=== PATIENT | female | born 1960 | race Caucasian/White ===

== ENCOUNTER 2023-12-06 15:30 | Outpatient (OUT) | payer OTHER, SELFPAY ==
--- NOTE | 2023-12-06 16:00 | XR_ITS ---
The [address] [address] Patient Name: APRYL VALADEZ MRN: [id number] date: 1960 Sex: F Assigned Patient Location: [facility] Current Patient Location: Accession/Order Number: [id number] Exam Date: 12/06/2023 15:36 Report Date: 12/10/2023 07:40 At the request of: MARY ANN MG Procedure: XR DEXA axial skeleton EXAMINATION: XR DEXA axial skeleton, 12/06/2023 3:36 PM EDT HISTORY: Osteoporosis COMPARISON: 2018 TECHNIQUE: Dual-energy X-ray absorptiometry (DEXA) bone density study performed for the axial skeleton. FINDINGS: Bone density AP spine L1-L4 measures 1.016 g/sq cm. T score -1.4. Osteopenia. Lowest bone mineral density right femoral neck at 0.74 g/sq cm for T score -1.8. Osteopenia XR/XR DEXA axial skeleton IMPRESSION: Osteopenia. Moderate fracture risk Pharmacologic treatment recommendations * No uniform recommendation applies to all patients. Management plans must be individualized. * Consider initiating pharmacologic treatment in postmenopausal women and men >= 50 years of age who have the following: Primary fracture prevention: * T-score <= - 2.5 at the femoral neck, total hip, lumbar spine, 33% radius (some uncertainty with existing data) by DXA. * Low bone mass (osteopenia: T-score between - 1.0 and - 2.5) at the femoral neck or total hip by DXA with a 10-year hip fracture risk >= 3% or a 10-year major osteoporosis-related fracture risk >= 20% (i.e., clinical vertebral, hip, forearm, or proximal humerus) based on the US-adapted FRAXregistered model. Secondary fracture prevention: * Fracture of the hip or vertebra regardless of BMD [4, 5]. * Fracture of proximal humerus, pelvis, or distal forearm in persons with low bone mass (osteopenia: T-score between - 1.0 and - 2.5). The decision to treat should be individualized in persons with a fracture of the proximal humerus, pelvis, or distal forearm who do not have osteopenia or low BMD [12, 13]. Pam MS, Nancy SL, Amanda KL, Ann-Marie EM, Melba KG, AJ, Scottie ES. The clinician's guide to prevention and treatment of osteoporosis. Osteoporos Int. 2021;33(10):1098-4078. doi: 10.1007/d55750-150-19486-x. Epub 2021Jun 16. Erratum in: Osteoporos Int. 2021Sep 15;: PMID: [id number]; PMCID: [id number]. Electronically authenticated by: SMITHA STEWART Date: 12/10/2023 07:40
--- NOTE | 2023-12-06 16:00 | MM_ITS ---
Patient Name: APRYL VALADEZ MR#: [id number] : 1960 Exam Date: 12/06/2023 Ordering Doctor: DR oClleen Lancaster M.D. RADIOLOGY REPORT PROCEDURE: MM TOMOSYNTHESIS SCREENING BI COMPARISON: MG MAMM SCREEN 3D AMARA CAD, 03/07/2022. MG MAMM SCREEN 3D AMARA CAD, 11/09/2020. INDICATIONS: Screening Calculator Name NCI Breast Cancer Risk Assessment Tool 5 Year Breast Cancer Risk 1.60% Lifetime Breast Cancer Risk 7.90% Personal Breast Cancer No Personal Ovarian Cancer No Treatments None Family Cancers None LOCATION: The [facility] BREAST COMPOSITION: There are scattered areas of fibroglandular density. FINDINGS: DIAGNOSTIC CATEGORY 2--BENIGN FINDING. NO CHANGE FROM COMPARISON. Bilateral axillary calcifications, grossly stable RIGHT BREAST: No significant suspicious finding. LEFT BREAST: No significant suspicious finding. RECOMMENDATIONS: ROUTINE MAMMOGRAM AND CLINICAL EVALUATION IN 12 MONTHS. PLEASE NOTE: A NORMAL MAMMOGRAM DOES NOT EXCLUDE THE POSSIBILITY OF BREAST CANCER. A CLINICALLY SUSPICIOUS PALPABLE LUMP SHOULD BE BIOPSIED. Dictated by: Kaushal tSroud MD on 12/06/2023 at 16:25 Approved by: Kaushal Stroud MD on 12/06/2023 at 16:27
== END 2023-12-06 15:31 | disposition home or self-care (01) ==
LOC: RAD 15:30
PROVIDERS: PCP Family Medicine; Visit Provider Family Medicine
DX: Z12.31 Encounter for screening mammogram for malignant neoplasm of breast (principal); M81.0 Age-related osteoporosis without current pathological fracture; M85.80 Other specified disorders of bone density and structure, unspecified site
CPT/HCPCS: 77063; 77067; 77080

== ENCOUNTER 2024-01-31 15:19 | Outpatient (OUT) | payer OTHER, SELFPAY | END 2024-01-31 15:20 | disposition home or self-care (01) | LOC: PST 15:19 | PROVIDERS: PCP Family Medicine; Visit Provider Surgery | DX: Z01.818 Encounter for other preprocedural examination (principal); Z12.11 Encounter for screening for malignant neoplasm of colon ==

== ENCOUNTER 2024-02-06 06:23 | Day surgery (SDC) | payer OTHER, SELFPAY ==
--- NOTE | 2024-02-06 | OP_ITS ---
OPERATION DATE: 02/06/2024 PREOPERATIVE DIAGNOSIS: Colorectal screening. POSTOPERATIVE DIAGNOSIS: Redundant colon with spasm, as well as sigmoid diverticulosis, moderate. PROCEDURE: Colonoscopy to cecum. SURGEON: Khalif Winters M.D. ANESTHESIA: Monitored anesthesia care. ESTIMATED BLOOD LOSS: Zero. INDICATIONS AND CONSENT: Patient is a 63-year-old female, presents for colorectal screening. Indications, risks, benefits, alternatives of proceeding with colonoscopy were explained extensively to the patient, including the risks of bleeding, colon perforation or anesthetic complications. All of her questions were answered. Informed consent was obtained. PROCEDURE: Patient brought to the operating room, placed in the left lateral decubitus position. Monitored anesthesia care was provided. Rectal exam was performed which showed no masses or blood. The scope was inserted into the anal canal. Under direct visualization, it was advanced. With the aid of abdominal compression, it was advanced to the cecum where cecal markings were clearly identified. There was noted to be a redundant colon with spasm. Upon withdrawal of the scope, mucosal surfaces were carefully examined. There was noted to be a good prep with no mass lesions or polyps. No inflammatory changes or ulcerations. There was moderate sigmoid diverticulosis without inflammatory changes or scarring. The scope was retroflexed in the anal canal. There were some prominent rectal veins, no significant hemorrhoidal disease. The scope was then withdrawn. Patient tolerated procedure well, was sent to recovery room in good condition. Follow up colonoscopy should be in 10 years for screening. CC: Colleen Lancaster M.D. NICOLETTE
[2024-02-06 06:30] VITALS: BP 126/73; PULSE 87; TEMP 36.3; O2SAT 95; BMI 31.3
[2024-02-06] MEDS: 0.9 % SODIUM CHLORIDE 500 ML 50 ML IV (07:06)
[2024-02-06 07:43] VITALS: BP 113/67; PULSE 77; TEMP 36.3; O2SAT 98
[2024-02-06 07:58] VITALS: BP 113/75; PULSE 77; O2SAT 98
[2024-02-06 08:13] VITALS: BP 122/77; PULSE 72; O2SAT 97
== END 2024-02-06 08:18 | disposition home or self-care (01) ==
PROVIDERS: PCP Family Medicine; Visit Provider Surgery
PROC: (CPT 45378; principal; 2024-02-06 07:30)
DX: Z12.11 Encounter for screening for malignant neoplasm of colon (principal); K57.30 Diverticulosis of large intestine without perforation or abscess without bleeding; K63.89 Other specified diseases of intestine; Z79.899 Other long term (current) drug therapy; M81.0 Age-related osteoporosis without current pathological fracture; Z79.83 Long term (current) use of bisphosphonates; E66.09 Other obesity due to excess calories; Z68.31 Body mass index [BMI] 31.0-31.9, adult; Z88.0 Allergy status to penicillin; Z88.2 Allergy status to sulfonamides; Z88.5 Allergy status to narcotic agent
CPT/HCPCS: 45378; J2704

== ENCOUNTER 2024-07-11 11:47 | Outpatient (OUT) | payer OTHER, SELFPAY ==
--- OUTSIDE RECORDS SUMMARY | 2024-03-04 17:11 | XMS_ITS ---
Author Name Auto Generated Organization [facility] Care Team Providers Care Category Planner Name Role Phone Khalif ROMAN Attending Unavailable Khalif ROMAN Attending Unavailable GERARD SEALS Attending Unavailable GERARD SEALS Referring Unavailable PROBLEMS No Problem Records Found PROCEDURES No Procedure Records Found RESULTS REMINDERS Observed: 02/07/2024 1:07 PM Status: F Source: [facility] Reminders From: Yeny Greene LPN To: N - Clinical; Sent: 02/07/2024 13:07:28 EST Show up: 01/06/2034 07:00:00 EST Subject: colonoscopy recall Due Date/Time: 02/05/2034 07:00:00 EST Reminder/Recall Patient due for screening colonoscopy 02/05/2034. AMBULATORY VISIT SUMMARY Observed: 12/25 3:58 PM Status: F Source: [facility] Ambulatory Visit Summary APRYL VALADEZ :1960 Visit Date:12/26/2023 Ambulatory Visit Instructions Your Diagnosis Screening for malignant neoplasm of colon Your Care Team Attending Physician - JESSIE NAYLOR, Khalif Pace Primary Care Physician - MARY ANN LANCASTER MD This Is Your Medications List Contact prescribing physician if questions or concerns alendronate (Fosamax 70 mg Tab) fluticasone (fluticasone CFC free 110 mcg/inh Inh Aer w/adapter) montelukast (Singulair 10 mg Tab) sumatriptan (Imitrex 25 mg Tab) Procedures Performed Colonoscopy, Laparoscopy, Lysis of adhesions, Tympanostomy. Discharge Vitals Heart Rate (Peripheral) 76 Respiratory Rate 16 Blood Pressure 124/84 Height 158.7 cm Height 62 in Weight 79.4 kg Weight 174.68 lb BMI 31.53 Medications What How Much When Instructions Unchanged alendronate (Fosamax 70 mg Tab) 1 Tablets By Mouth Every week Contact prescribing physician if questions or concerns Unchanged fluticasone (fluticasone CFC free 110 mcg/ inh Inh Aer w/ adapter) 2 Puffs Inhalation 2 times a day Contact prescribing physician if questions or concerns Unchanged montelukast (Singulair 10 mg Tab) 1 Tablets By Mouth Every day Contact prescribing physician if questions or concerns Unchanged sumatriptan (Imitrex 25 mg Tab) 1 Tablets By Mouth Once as needed for Migraine headache Contact prescribing physician if questions or concerns Allergies Darvocet-N 50 (Hives) penicillin (Hives) sulfa drugs (Hives) Problems Ongoing - Any problem that you are currently receiving treatment for. Allergic rhinitis BMI 31.0-31.9,adult Endometriosis Migraine with aura Mild intermittent asthma Obesity due to excess calories Osteoporosis Screening for malignant neoplasm of colon Patient Survey You may receive a survey via text or e-mail asking about your office visit. Please share your experience with us by completing your survey. We appreciate your feedback and thank you for choosing us for your care. GENERAL SURGERY OFFICE/CLINI C NOTE Observed: 12/26/2023 3:41 PM Status: F Source: [facility] General Surgery Office/Clini c Note Chief Complaint consultation for screening colonoscopy HPI Staff 63 year old female presents on consultation from Dr. Lancaster for screening colonoscopy. Denies abdominal or rectal pain. No rectal bleeding or change in bowel habits. Denies nausea or vomiting. No unexplained weight loss. Patient had previous colonoscopy completed approximately 30 years ago. No known family history of colon cancer. History of Present Illness 63 yo female with h/o migraines, asthma, osteoporosis, referred for colorectal screening; denies change in bms or blood in stools, no abd complaints; abd operations significant for abd laparoscopies with lysis of adhesions, last colonoscopy 30 years ago; no asa or NSAID use; no tobacco use; no fmhx of GI malignancy or IBD. Review of Systems PHQ Score Initial Depression Screen Score: 0 SCORE ROS - Provider Constitutional: no fever, no sweats, no weight loss. Eyes: no glasses, no blurred vision, no visual loss. ENMT: no dentures, no hoarseness, no swallowing difficulties, no hearing loss, no ear infection(s), no nose bleeds. Cardiovascular: normal blood pressure, no chest pain, regular heartbeat, no heart murmur. Respiratory: no shortness of breath, no cough, no asthma, no wheezing. Gastrointestinal: no nausea, no vomiting, no diarrhea, no constipation, no blood in stool, no change in bowel habits, no abdominal pain, no hepatitis. Genitourinary: no kidney stones, no urine infection, no dysuria. Musculoskeletal: no pain, no weakness. Skin: no changing moles, no rash, no skin lumps. Neurologic: no seizures, no epilepsy, no headache. Psychiatric: no emotional or psychiatric problem. Heme/Lymph: no bleeding problems, no anemia, no blood clots, no transfusions. Allergy/Immunologic: no swollen lymph nodes/glands, no IV drug abuse. Other: Additional ROS info: Except as noted in the above Review of Systems and in the History of Present Illness, all other systems have been reviewed and are negative or noncontributory. Physical Exam Vitals & Measurements HR: 76(Peripheral) RR: 16 BP: 124/84 HT: 62 in HT: 158.7 cm WT: 79.4 kg WT: 174.68 lb BMI: 31.53 HEENT: normal conjunctiva, sclera clear, no scleral icterus, EOM intact, PERRLA, oral mucosa moist without lesions. Neck: trachea midline, no mass, symmetric, no thyromegaly or nodules, no adenopathy Respiratory: lungs CTA, respirations non labored. Cardiovascular: regular rate and rhythm, no murmur, no pedal edema or varicosities. Gastrointestinal: obese, soft, non distended, no tenderness, no masses, no palpable hernias, diastasis recti no, no hepatosplenomegaly; normal bs Lymphatic: no cervical adenopathy, no supraclavicular adenopathy. Musculoskeletal: normal gait, digits and nails without infection, nodes, cyanosis, clubbing. Skin: no rashes, no lesions, no ulcers, no subcutaneous nodules, induration. Psychiatric/Neuro: oriented to time, place, person, judgement normal, affect appropriate for age, insight intact, no focal deficits. Tests: , review of old records completed , Discussed surgical options, risks, and possible complications with patient. Assessment/Plan 1. Screening for malignant neoplasm of colon (Z12.11: Encounter for screening for malignant neoplasm of colon) plan colonoscopy under anesthesia, informed consent obtained. Follow-up No qualifying data available Problem List/Past Medical History Ongoing Allergic rhinitis BMI 31.0-31.9,adult Endometriosis Migraine with aura Mild intermittent asthma Obesity due to excess calories Osteoporosis Screening for malignant neoplasm of colon Historical No qualifying data Procedure/Surgical History Colonoscopy, Laparoscopy, Lysis of adhesions, Tympanostomy. Medications fluticasone CFC free 110 mcg/inh Inh Aer w/adapter, 2 puff(s), Inhalation, BID Fosamax 70 mg Tab, 70 mg= 1 tab(s), Oral, qWeek Imitrex 25 mg Tab, 25 mg= 1 tab(s), Oral, Once, PRN Singulair 10 mg Tab, 10 mg= 1 tab(s), Oral, Daily Allergies Darvocet-N 50 (Hives) penicillin (Hives) sulfa drugs (Hives) Social History Alcohol - Denies Alcohol Use, 12/26/2023 Substance Abuse - Denies Substance Abuse, 12/26/2023 Tobacco Never (less than 100 in lifetime) Tobacco Use:. Never Smokeless Tobacco Use:., 12/26/2023 Family History Bile duct carcinoma: Negative: Brother. Diabetes mellitus type 2: Mother. Heart disease: Mother and Father. Immunizations Vaccine Date Status Comments SARS-CoV-2 (COVID-19) Ad26 vaccine 07/14/2020 Recorded 2023-12-11: --[employer] POP[employer]ATION/OCCUPATION-- Result Comment: Electronical ly Signed By: JESSIE NAYLOR, Khalif Aguilar\Date and Time Signed: 12/26/23 15:42 EST ALLERGIES DATE TYPE / CODE NAME / CODE REACTION SEVERITY SOURCE [id number]([facility] ED CT) azithromycin [id number] Moderate (Severity Modifier) (Qualifier Value) [facility] [id number]([facility] ED CT) penicillin [id number] Moderate (Severity Modifier) (Qualifier Value) [facility] [id number]([facility] ED CT) propoxyphene [id number] Moderate (Severity Modifier) (Qualifier Value) [facility] ANAYELI580661020([facility] ED CT) sulfa drugs [id number] [facility] /[id number](SN ED CT) Darvocet-N 50 [id number] Moderate (Severity Modifier) (Qualifier Value) [facility] ENCOUNTERS ADMIT/DISCHARGE ACCOUNT NUMBER ADMITTING ENCOUNTER CLASS LOCATION SOURCE 03/04/2024/ 5 [id number] Ambulatory Building:[facility] EPIC 03/04/2024/ 5 [id number] Ambulatory Building:[facility] OD [facility] EPIC 02/06/2024/ 4 [id number] Ambulatory CD:[id number] 7Building:CD :[id number] [facility] 12/26/2023/ 4 [id number] Ambulatory [place] ding: BryanueRoom : Exam 2 [facility] 12/03/2023 [id number] Ambulatory Suad ding:[facility] PAYERS ENCOUNTER GUARANTOR PAYER SUBSCRIBER SOURCE 03/04/2024 APRYL THIBODEAUXLINDAOB: [address]: () (WP) Primary Insurance:[employer] Number: [id number] Date:2022-01-27 APRYL THIBODEAUXSDOB: [id number] [facility] 03/04/2024 APRYL THIBODEAUXSDOB: [place] [address]Tel: (HP) (WP) Primary Insurance:[employer] Number: [id number] Date:2022-01-27 APRYL THIBODEAUXSDOB: [id number] [address] [facility] EPIC 02/06/2024 APRYL THIBODEAUXSDOB: [address]Tel: ~~([phone] 1 (HP) Primary Insurance:[employer] BenefitsPolicy Number: [id number] Date:7337-18-04OW [address] [place] [address]OU: APRYL ANNE [facility] 12/26/2023 APRYLMARYLIN THIBODEAUXSDOB: [facility]Tel: ~~(4 1 (HP) Primary Insurance:[employer] BenefitsPolicy Number: [id number] Date:8806-14-50QW [address] [place] [address]SB: APRYL Nieves [facility] 12/03/2023 APRYL FRANCISOB: [facility] [facility] [address] [address]Tel: (HP) Primary Insurance:[employer] BenefitsPolicy Number: [id number] Date:2015-08-25[address] [address], [place] [address]NI: [facility]
--- NOTE | 2024-07-11 11:57 | XR_ITS ---
The [address] [address] Patient Name: APRYL VALADEZ MRN: [id number] date: 1960 Sex: F Assigned Patient Location: [facility] Current Patient Location: [facility] Accession/Order Number: [id number] Exam Date: 07/11/2024 12:58 Report Date: 07/11/2024 12:59 At the request of: MARY ANN MG MD Procedure: XR shoulder LT min 2V XR shoulder LT min 2V 07/11/2024 12:04 PM SIGNS AND SYMPTOMS: ^Left Shoulder Pain PROTOCOL: Frontal, Grashey, and scapular Y views of the left shoulder COMPARISON: None FINDINGS: Mild hypertrophic changes are noted in the acromioclavicular joint. Mild narrowing of the glenohumeral joint is noted with mild spurring at the inferior margin of the humeral head. There is no fracture or dislocation. Visualized left hemithorax is grossly intact. XR/XR shoulder LT min 2V IMPRESSION: No acute bony injury. Mild degenerative changes are noted as above. Impression dictated by: Kamlesh Clements M.D. 07/11/2024 12:59 PM Dictation Location: [place] [address] Electronically authenticated by: [id number] Y Date: 07/11/2024 12:59
== END 2024-07-11 11:48 | disposition home or self-care (01) ==
LOC: RAD 11:49
PROVIDERS: PCP Family Medicine; Visit Provider Family Medicine
DX: M25.512 Pain in left shoulder (principal)
CPT/HCPCS: 73030

== ENCOUNTER 2024-09-17 15:59 | Outpatient (OUT) | payer OTHER, SELFPAY ==
--- OUTSIDE RECORDS SUMMARY | 2024-09-01 10:30 | XMS_ITS ---
Author Organization [facility] Address [address] [place] [address] Care Team Providers Care Marketing Designer Name Role Phone Colleen Lancaster M.D. Primary Care Provider Unavail able Dennis Oquendo Unavailable [phone] Charu Bravo Unavailable [phone] Allergies Allergen (clinical drug ingredient) Drug/Non Drug Allergy documented on EMR Reaction Allergy Type Onset Date Status DARVOCET (uncoded) Unknown Allergy A ctive PENICILLIN (uncoded) nausea/vomiting Allergy Active SULFA (uncoded) Unknown Allergy Acti ve REASON FOR VISIT BILAT SHOULDER Medications Medication SIG (Take, Route, Frequency, Duration) Notes Start Date End Date Status alendronate Active fluticasone Active Mobic 15 mg 1 tab(s) orally once a day for 90 days 09/01/2024 Active SUMAtriptan Active montelukast Active Social History Tobacco Use: Social History Observation Description Date Details (start date - stop date) Never Smoker NA - NA AUDIT-C (Standard) Question Answer Notes Did you have a drink containing alcohol in the p ast year? No Points 0 Interpretation Negative Tobacco Control (Standard) Question Answer Notes Tobacco use: Nonsmoker Encounters Encounter Location Date Provider Diagnosis [facility] [address] [place] [address] 09/01/2024 Charu Bravo Pain in right should er M25.511 ; Pain in left shoulder M25.512 and Adhesive capsulitis of right shoulder M75.01 Assessments Encounter Date Diagnosis (ICD Code) Assessment Notes Treatment Notes Treatment Clinical Notes Section Notes 09/01/2024 Pain in right shoulder (ICD-10 - M25.511) 09/01/2024 Pain in left shoulder (ICD-10 - M25.512) 09/01/2024 Adhesive capsulitis of right shoulder (ICD-10 - M75.01) 09/01/2024 Other For her right shoulder development of adhesive capsulitis I have discussed the nature of the condition and recommended home exercise program and anti-inflammatory medications. I did prescribe an anti-inflammatory and precautions were reviewed. We discussed consideration for cortisone injection if things do not improve. Will follow-up in 6 weeks to reassess her progress. Plan has been agreed upon by my supervising physician, []MD. Plan Of Treatment Medication Medication Name Sig Start Date Stop Date Notes Mobic 15 mg 1 tab(s) orally once a day for 90 days 025 Treatment Notes Assessment Notes Other For her right shoulder development of adhesive capsulitis I have discussed the nature of the condition and recommended home exercise program and anti-inflammatory medications. I did prescribe an anti-inflammatory and precautions were reviewed. We discussed consideration for cortisone injection if things do not improve. Will follow-up in 6 weeks to reassess her progress. Plan has been agreed upon by my supervising physician, []MD. Pending Test Test Name Order Date SCC- SHOULDER 3 VIEW RIGHT [id number] Next Appt Details Follow Up: 6 Weeks, Reason: Provider Name:Dennis Son and, 10/13/2024 01:15:00 PM, [address] [facility], [address], [address], Progress Notes * APRYL VALADEZ MDOB:[birth year] (63 yo F)Acc No.[id number]:09/01/2024 Patient: Terra AGUILAR APRYL Nieves Provider: Morgan Bravo CNP :1960 A ge:63 Y S ex:Female Date:09/01/2024 Address:[address] [place], [place] [id number] Pcp:Colleen Lancaster M.D. Subjective: * Chief Complaints: * 1 . BILAT SHOULDER. * HPI: G eneral Info per Patient Report: Patient follows up today for recheck of her shoulders. Her right shoulder is becoming a little bit more painful than the left. The left is starting to move a little bit better but is noticed some limitation with her right shoulder reaching behind her back. She is just been doing home exercises. * Medical History: A sthma, Respiratory problems:. * Family History: N o Family History documented.. * Social History: A ALLEN-C (Standard) D id you have a drink containing alcohol in the past year? N o,?Points 0 , I nterpretation N egative. T obacco Control (Standard) T obacco use: N onsmoker. * Medications: T aking alendronate , Taking fluticasone , Taking SUMAtriptan , Taking montelukast * Allergies: P ENICILLIN: nausea/vomiting, SULFA, DARVOCET. Objective: * Vitals: * Examination: G eneral examination: T he patient is a age-appropriate [], alert and oriented x3 and in no acute distress. Well-dressed and well-groomed. Stands with normal body position and in a calm mood. On examination of the right shoulder she does have full forward and external rotation but limitation to the PSIS. She has good strength with rotator cuff resistance. Positive Patton and Neer maneuver. Intact sensation light touch with palpable pulses. On examination of the left shoulder she has good shoulder range of motion. Good strength with rotator cuff resistance. specific exam: x-ray imaging studies: X-ray 3 views of the right shoulder taken today in clinic and interpreted me were negative for acute fracture, dislocation or subluxation. specific exam: x-ray imaging studies: Assement:. Assessment: * Assessment: 1. P ain in right shoulder - M25.511 (Primary) 2 . P ain in left shoulder - M25.512 3 . A dhesive capsulitis of right shoulder - M75.01 Plan: * Treatment: 2. O thers Notes: For her right shoulder development of adhesive capsulitis I have discussed the nature of the condition and recommended home exercise program and anti-inflammatory medications. I did prescribe an anti-inflammatory and precautions were reviewed. We discussed consideration for cortisone injection if things do not improve. Will follow-up in 6 weeks to reassess her progress. Plan has been agreed upon by my supervising physician, []MD. * Procedure Codes: 7 3030 X-ray Shoulder, 2 or more view * Follow Up: 6 Weeks Forms: * Images: * Electronic signature of Charu Bravo CNP on 09/17/2024 at 04:01 PM EDT Sign off status: Pending * Provider: Morgan Bravo CNP Date: 09/01/2024 Generated for Barry garcia/Jordi/Rola on: 09/17/2024 04:01 PM EDT History and Physical Notes * HPI (History of Present Illness) Category Sub-Category Detail Notes Category Not es General Info per Patient Report Patient follows up constanza barrazaay for recheck of her shoulders. Her right shoulder is becoming a little bit more painful than the left. The left is starting to move a little bit better but is noticed some limitation with her right shoulder reaching behind her back. She is just been doing home exercises. Examination Category Sub-Category Detail Notes Category Not es General examination The patient is a age-appropriate [], alert and oriented x3 and in no acute distress. Well-dressed and well-groomed. Stands with normal body position and in a calm mood. On examination of the right shoulder she does have full forward and external rotation but limitation to the PSIS. She has good strength with rotator cuff resistance. Positive Patton and Neer maneuver. Intact sensation light touch with palpable pulses. On examination of the left shoulder she has good shoulder range of motion. Good strength with rotator cuff resistance. specific exam: x-ray imaging studies: X-ray 3 views of the right shoulder taken today in clinic and interpreted me were negative for acute fracture, dislocation or subluxation. specific exam: x-ray imaging studies: Assement:
--- OUTSIDE RECORDS SUMMARY | 2024-09-08 03:40 | XMS_ITS ---
Author Organization [facility] Address [address] [place] [address] Care Team Providers Care Transmission System Operator Name Role Phone Tonny Ruiz, Colleen Primary Care Provider Unavail Dennis Augustin Unavailable [phone] REASON FOR VISIT LEFT SHOULDER BURSITIS Encounters Encounter Location Date Provider Diagnosis [facility] [facility] [address] [facility] [place] [address] [place] [address] 09/08/2024 Dennis Oquendo Plan Of Treatment Next Appt Details Provider Name:Dennis Son and, 10/13/2024 01:15:00 PM, [address] [facility] , [address], [address], Progress Notes * APRYL VALADEZ MDOB:[birth year] (63 yo F)Acc No.[id number]:09/08/2024 Patient: APRYL SAXENA Provider: Jason Oquendo MD :1960 A ge:63 Y S ex:Female Date:09/08/2024 Address:[address] [place], [place] [phone] Pcp:Colleen Lancaster M.D. Subjective: * Chief Complaints: * 1 . LEFT SHOULDER BURSITIS. * Medical History: Objective: * Vitals: Assessment: Plan: * Treatment: Forms: * Images: * Electronic signature of Sukhdev Oquendo MD on 09/17/2024 at 04:01 PM EDT Sign off status: Pending * Provider: Jason Oquendo MD Date: 09/08/2024 Generated for Barry garcia/Jordi/eTransmitting on: 09/17/2024 04:01 PM EDT
--- NOTE | 2024-09-17 16:00 | US_ITS ---
The [address] [address] Patient Name: APRYL VALADEZ MRN: [id number] date: 1960 Sex: F Assigned Patient Location: US Current Patient Location: US Accession/Order Number: [id number] Exam Date: 09/17/2024 17:47 Report Date: 09/17/2024 17:50 At the request of: MARY ANN MG MD Procedure: US chest Soft tissue ultrasound INDICATION: Subcutaneous mass of back, right-sided back lump COMPARISON: None FINDINGS: At the site of clinical concern, there is a subcutaneous ovoid hypoechoic slightly heterogeneous structure identified this appears relatively isoechoic to adjacent subcutaneous fat. This measures 3.0 x 1.0 x 2.7 cm in size. US/US chest IMPRESSION: Confirmation of a circumscribed mass within the soft tissues at site of concern. Question this could represent represent a lipoma. Consider short-term clinical or ultrasound follow-up. Alternatively, Consider cross-sectional imaging for further characterization purposes. Impression dictated by: Kvng Winston M.D. 09/17/2024 5:50 PM Dictation Location: [place] [address] Electronically authenticated by: [id number] Y Date: 09/17/2024 17:50
--- NOTE | 2024-09-17 16:00 | US_ITS ---
The [address] [address] Patient Name: APRYL VALADEZ MRN: [id number] date: 1960 Sex: F Assigned Patient Location: Current Patient Location: Accession/Order Number: [id number] Exam Date: 09/18/2024 09:38 Report Date: 09/18/2024 09:40 At the request of: MARY ANN MG MD Procedure: US thyroid Thyroid ultrasound Reason for exam: Massive neck. Comparison: none Technique: Grayscale and color Doppler images of the thyroid gland were obtained. Findings: The right lobe measures 4.6 x 0.9 x 1.7 cm. The left lobe measures 4.5 x 1.3 x 1.4 cm. This is measures 2.8 mm. No hyperemia seen on color Doppler imaging. No nodule is seen. In the area of lump involving the left neck, multiple lymph nodes are identified largest measuring 22 x 6 x 6 mm. US/US thyroid Impression: Unremarkable thyroid ultrasound. In the area of lump involving the left neck, multiple lymph nodes are seen likely reactive largest measuring 22 x 6 x 6 mm. Repeat ultrasound after therapy is recommended if necessary. Impression dictated by: Boaz Matias Jr., D.O. 09/18/2024 9:40 AM Dictation Location: [place] [address] Electronically authenticated by: [id number] Y Date: 09/18/2024 09:40
--- OUTSIDE RECORDS SUMMARY | 2024-09-17 16:01 | XMS_ITS | Clinical Summary ---
Author Organization [facility] Address [address] [place] [address] Care Team Providers Care Redrying Machine Operator Name Role Phone Unavailable Primary Care Provider Unavailabl e Allergies Active Allergy Reactions Criticality Noted Date Comments Other 03/04/2024 Other Reaction(s): Unknown Penicillins Medium 03/04/2024 Other Reaction(s): Hives, Unknown Propoxyphene 03/04/2024 Other Reaction(s): Unknown Sulfa Antibiotics 03/04/2024 Other Reaction(s): Hives Medications montelukast (Singulair) 10 MG tablet Take 10 mg by mouth Daily Active SUMAtriptan (Imitrex) 25 MG tablet Take 25 mg by mouth 12/11/2023 Active albuterol HFA 90 mcg/act inhaler 2 puffs every 4 (four) hours if needed Active Active Problems Problem Noted Date Diagnosed Date Asthma Family History Medical History Relation Name Comments Heart disease Father Matt COPD Mother Alicia Diabetes Mother Alicia Relation Name Status Comments Father Matt Mother Alicia Social History Tobacco Use Types Packs/Day Years Used Date Smoking Tobacco: Never Smokeless Tobacco: Never Tobacco Cessation:Counseling Given: Not Answered Alcohol Use Standard Drinks/Week Comments Not Currently 1 (1 standard drink = 0.6 oz pur e alcohol) Comments Unknown Sex and Gender Information Value Date Recorded Sex Assigned at Female 03/01/2024 5:31 PM EST Legal Sex Female 6:35 PM EDT Gender Identity Female 03/01/2024 5:31 PM EST Sexual Orientation Straight 03/01/2024 5: 31 PM EST Last Filed Vital Signs Vital Sign Reading Time Taken Comments Blood Pressure 145/85 04/11/2019 12:00 PM EST Pulse - - Temperature - - Respiratory Rate - - Oxygen Saturation - - Inhaled Oxygen Concentration - - Weight 76.2 kg (168 lb) 03/04/2024 3:19 PM EST Height 160 cm (5' 3 ) 03/04/2024 3:19 PM EST Body Mass Index 29.76 03/04/2024 3:19 PM EST Plan of Treatment Health Maintenance Due Date Last Done Comments CT Colonography 1960 Colonoscopy 1960 FIT 1962 FOBT 1962 Sigmoidoscopy 1962 Pap Smear 11/01/1983 Cervical Cancer Screening 1992 HPV/Cotest 1992 Mammogram 09/25/2017 09/25/2016, 09/24/2015, 08/19 Influenza Vaccine (#1) 2024 Colorectal Cancer Screening 04/08/2025 FIT-DNA 04/08/2025 04/08/2022, 02/14/2018 Insurance [employer]
--- OUTSIDE RECORDS SUMMARY | 2024-09-17 16:01 | XMS_ITS | Patient Health Record ---
Author Organization [facility] Address [address] [place] [address] Care Team Providers Care Checkroom Attendant Name Role Phone Colleen Lancaster M.D. Primary Care Provider Unavail able Dennis Oquendo Unavailable [phone] Charu Bravo Unavailable [phone] Carolyn Medrano Unavailable Allergies Allergen (clinical drug ingredient) Drug/Non Drug Allergy documented on EMR Reaction Allergy Type Onset Date Status DARVOCET (uncoded) Unknown Allergy A ctive PENICILLIN (uncoded) nausea/vomiting Allergy Active SULFA (uncoded) Unknown Allergy Acti ve Reason For Referral No Information Medications Medication SIG (Take, Route, Frequency, Duration) [...] (Standard) Question Answer Notes Tobacco use: Nonsmoker Vital Signs Height 5'3 in 07/28/2024 Weight 170 lbs 07/28/2024 BMI 30.11 07/28/2024 Encounters Encounter Location Date Provider Diagnosis [facility] [facility] [address] [facility] [place] [address] 07/28/2024 Carolyn Medrano Bursitis of left shoulder M75.52 [facility] [address] [place] [address] 09/01/2024 Charu Bravo Pain in right shoulder M25.511 ; Pain in left shoulder M25.512 and Adhesive capsulitis of right shoulder M75.01 Assessments Encounter Date Diagnosis (ICD Code) Assessment Notes Treatment Notes Treatment Clinical Notes Section Notes 07/28/2024 Bursitis of left shoulder (ICD-10 - M75.52) Left shoulder bursitis/rot ator cuff tendinitis Left shoulder DJD Left shoulder bursitis/rot ator cuff tendinitis Left shoulder DJD 09/01/2024 Pain in right shoulder (ICD-10 - M25.511) 09/01/2024 Pain in left shoulder (ICD-10 - M25.512) 09/01/2024 Adhesive capsulitis of right shoulder (ICD-10 - M75.01) 07/28/2024 Other Today I reviewed patient's x-rays with her and on exam she has full ROM and strength but is still feeling some weakness with daily activities. We did discuss getting an MRI versus corticosteroid injection or physical therapy. Patient would like to try some exercises at home first, I will set her up with 1-2 sessions of PT to learn a home exercise program. We will see her back in 6 weeks for reevaluation. Today I reviewed patient's x-rays with her and on exam she has full ROM and strength but is still feeling some weakness with daily activities. We did discuss getting an MRI versus corticosteroid injection or physical therapy. Patient would like to try some exercises at home first, I will set her up with 1-2 sessions of PT to learn a home exercise program. We will see her back in 6 weeks for reevaluation. Left shoulder bursitis/rot ator cuff tendinitis Left shoulder DJD Left shoulder bursitis/rot ator cuff tendinitis Left shoulder DJD 09/01/2024 Other For her right shoulder development [...] been agreed upon by my supervising physician, [MD Enrie. Plan Of Treatment Pending Test Test Name Order Date SCC- SHOULDER 3 VIEW RIGHT [id number] SCC- PT/OT HEP - 1 VISIT 07/28/2024 Next Appt Details Provider Name:Dennis Son and, 10/13/2024 01:15:00 PM, [address] [facility] [address], [place], [address], Insurance Providers Payer Name Payer Address Payer Phone Subscriber Number Group Number Insured Name Patient Relationship to Insured Coverage Start Date Coverage End Date [employer] [address] [address] [place] [address] [id number] APRYL VALADEZ Self - patient is the insured 5 Medical (General) History Medical History History ICD Code Asthma Respiratory problems:
--- OUTSIDE RECORDS SUMMARY | 2024-09-17 16:01 | XMS_ITS | Clinical Summary ---
Author Organization [facility] tem Address [id number] [address] [place] [address] Care Team Providers Care Gravity Meter Observer Name Role Phone Colleen Lancaster MD Primary Care Provider [phone] Family History Medical History Relation Name Comments Breast cancer Neg Hx Social History Tobacco Use Types Packs/Day Years Used Date Smoking Tobacco: Never Assessed Childcare Answer Date Recorded Childcare Unknown 07/31/2018 Employment Answer Date Recorded Employment Unknown 07/31/2018 Purpose - Life Answer Date Recorded Purpose and direction in life Unknown Comments Unknown Sex and Gender Information Value Date Recorded Sex Assigned at Not on file Legal Sex Female 11:28 AM EDT Gender Identity Not on file Sexual Orientation Not on file Plan of Treatment Not on file Medical Devices Not on file Insurance [employer] Care Teams Gravity Meter Observer Relationship Specialty Start Date End Date Colleen Lancaster MD [address] [place] [address] PCP - General 09/25/16
== END 2024-09-17 16:00 | disposition home or self-care (01) ==
LOC: US 15:59
PROVIDERS: PCP Family Medicine; Visit Provider Family Medicine
DX: R22.1 Localized swelling, mass and lump, neck (principal); R22.2 Localized swelling, mass and lump, trunk
CPT/HCPCS: 76536; 76604

== ENCOUNTER 2024-10-16 10:45 | Outpatient (OUT) | payer OTHER, SELFPAY ==
--- OUTSIDE RECORDS SUMMARY | 2024-09-08 03:40 | XMS_ITS ---
Author Organization [facility] Address [address] [place] [address] Care Team Providers Care Mobile Service Rv Technician Name Role Phone Tonny Ruiz, Colleen Primary Care Provider Unavail Dennis Augustin [facility] [phone] REASON FOR VISIT LEFT SHOULDER BURSITIS Encounters Encounter Location Date Provider Diagnosis [facility] [facility] [address] [facility] [place] [address] [place] [address] 09/08/2024 Dennis Oquendo Plan Of Treatment No Information Progress Notes * APRYL VALADEZ MDOB:[birth year] (63 yo F)Acc No.[id number]:09/08/2024 Patient: APRYL SAXENA Provider: Jason Oquendo MD :1960 A ge:63 Y S ex:Female Date:09/08/2024 Address:[address] [place], [place] [phone] Pcp:Colleen Lancaster M.D. Subjective: * Chief Complaints: * 1 . LEFT SHOULDER BURSITIS. * Medical History: Objective: * Vitals: Assessment: Plan: * Treatment: Forms: * Images: * Electronic signature of Sukhdev Oquendo MD on 10/16/2024 at 10:47 AM EDT Sign off status: Pending * Provider: Jason Oquendo MD Date: 09/08/2024 Generated for Barry garcia/Jordi/Mandoitting on: 10/16/2024 10:47 AM EDT
--- OUTSIDE RECORDS SUMMARY | 2024-10-13 09:15 | XMS_ITS ---
Author Organization [facility] Address [address] [place] [address] Care Team Providers Care Closing Specialist Name Role Phone Tonny Ruiz, Colleen Primary Care Provider Unavail Dennis Augustin Unavailable [phone] REASON FOR VISIT RT ADHESIVE CAPSULITIS, LEFT SHOULDER PAIN Encounters Encounter Location Date Provider Diagnosis [facility] [facility] [address] [place] [address] 10/13/2024 Dennis Oquendo Plan Of Treatment No Information Progress Notes * APRYL VALADEZ MDOB:[birth year] (63 yo F)Acc No.[id number]:10/13/2024 Patient: APRYL SAXENA Provider: Jason Oquendo MD :1960 A ge:63 Y S ex:Female Date:10/13/2024 Address:[address] [place], [place] [address] Pcp:Colleen Lancaster M.D. Subjective: * Chief Complaints: * 1 . RT ADHESIVE CAPSULITIS, LEFT SHOULDER PAIN. * Medical History: Objective: * Vitals: Assessment: Plan: * Treatment: Forms: * Images: * Electronic signature of Sukhdev Oquendo MD on 10/16/2024 at 10:47 AM EDT Sign off status: Pending * Provider: Jason Oquendo MD Date: 10/13/2024 Generated for Barry garcia/Jordi/eTransmitting on: 10/16/2024 10:47 AM EDT
--- NOTE | 2024-10-16 | XR_ITS ---
The [place] [id number] Patient Name: APRYL VALADEZ MRN: [id number] date: 1960 Sex: F Assigned Patient Location: [facility] Current Patient Location: Accession/Order Number: [id number] Exam Date: 10/16/2024 10:52 Report Date: 10/17/2024 00:21 At the request of: MAYELIN RAMIREZ DO Procedure: XR shoulder AMARA min 2V XR shoulder AMARA min 2V 10/16/2024 10:58 AM SIGNS AND SYMPTOMS: Bilateral shoulder pain left greater than right. PROTOCOL: Frontal, Grashey, and scapular Y views of the bilateral shoulders COMPARISON: None FINDINGS: Mild hypertrophic changes are noted in the infraclavicular joints. There is more pronounced on the right. The glenohumeral joints are preserved. There is no fracture or dislocation. The visualized right and left hemithorax is grossly intact. XR/XR shoulder AMARA min 2V IMPRESSION: No fracture or dislocation. Mild hypertrophic changes are noted in the acromioclavicular joints, right greater than left. Impression dictated by: Kamlesh Clements M.D. 10/17/2024 12:21 AM Dictation Location: [place] [address] Electronically authenticated by: [id number] Y Date: 10/17/2024 00:21
--- OUTSIDE RECORDS SUMMARY | 2024-10-16 10:47 | XMS_ITS | Clinical Summary ---
Author Organization [facility] tem Address [facility] [place] [id number] [address] [place] [address] Care Team Providers Care Procurement Analyst Name Role Phone Colleen Lancaster MD Primary Care Provider [phone] Family History Medical History Relation Name Comments [...] on file Insurance [employer] Care Teams Procurement Analyst Relationship Specialty Start Date End Date Colleen Lancaster MD [address] [place] [address] PCP - General 09/25/16
--- OUTSIDE RECORDS SUMMARY | 2024-10-16 10:47 | XMS_ITS | Patient Health Record ---
Author Organization [facility] Address [address] [place] [address] Care Team Providers Care Hand Counter Name Role Phone Colleen Lancaster M.D. Primary Care Provider Unavail able Dennis Oquendo Unavailable [phone] Charu Bravo Unavailable [phone] Carolyn Medrano Unavailable Allergies Allergen (clinical drug [...] Location Date Provider Diagnosis [facility] [facility] [address] [facility] [place] [address] [place] [address] 07/28/2024 Carolyn eMdrano Bursitis of left shoulder M75.52 [facility] [address] [facility] [place] [address] 09/01/2024 Charu Bravo Pain in right shoulder M25.511 and Adhesive capsulitis of right shoulder M75.01 Assessments Encounter Date Diagnosis (ICD Code) Assessment Notes Treatment Notes Treatment Clinical Notes Section Notes 07/28/2024 Bursitis of left shoulder (ICD-10 - M75.52) Left shoulder bursitis/rot ator cuff tendinitis Left shoulder DJD Left shoulder bursitis/rot ator cuff tendinitis Left shoulder DJD 09/01/2024 Pain in right shoulder (ICD-10 - M25.511) 09/01/2024 Adhesive capsulitis of right shoulder (ICD-10 [...] agreed upon by my supervising physician, [MD Ernie. Plan Of Treatment Pending Test Test Name Order Date SCC- SHOULDER 3 VIEW RIGHT [id number] SCC- PT/OT HEP - 1 VISIT 07/28/2024 Insurance Providers Payer Name Payer Address Payer Phone Subscriber Number Group Number Insured Name Patient Relationship to Insured Coverage Start Date Coverage End Date [employer] [address] [address] [place] [address] [id number] APRYL VALADEZ Self - patient is the insured 5 Medical (General) History Medical History History ICD Code Asthma Respiratory problems:
--- OUTSIDE RECORDS SUMMARY | 2024-10-16 10:47 | XMS_ITS | Clinical Summary ---
Author Organization [facility] Address [address] [place] [address] Care Team Providers Care Global Mobility Specialist Name Role Phone Unavailable Primary Care Provider [...]
--- OUTSIDE RECORDS SUMMARY | 2024-10-16 10:52 | XMS_ITS | CCD ---
Author Organization [facility] Care Team Providers Care Balance Truing Inspector Name Role Phone SAURAV, DR COLLEEN Duran Admitting Unavailable MG, DR COLLEEN Duran Attending Unavailable MG, DR COLLEEN Duran Primary Care Unavailable MG, DR COLLEEN Duran Consulting Unavailable MG, DR COLLEEN Duran Admitting Unavailable MG, DR COLLEEN Duran Attending Unavailable MG, DR COLLEEN Duran Primary Care Unavailable MALLIKA, DR DODIE Pace Consulting Unavailable MG, DR COLLEEN Duran Consulting Unavailable MG, DR COLLEEN Duran Admitting Unavailable MG, DR COLLEEN Duran Attending Unavailable MG, DR COLLEEN Duran Primary Care Unavailable MG, DR COLLEEN Duran Consulting Unavailable MG, DR COLLEEN Duran Admitting Unavailable MG, DR COLLEEN Duran Attending Unavailable MG, DR COLLEEN Duran Primary Care Unavailable MG, DR COLLEEN Duran Consulting Unavailable SMITHA FOURNIER Consulting Unavailable Colleen Mg Unavailable Jeannine Green Unavailable COLLEEN MG Primary Care Physician Khalif ROMAN Attending Unavailable Khalif ROMAN Attending Unavailable Unavailable Primary Care Provider UnavailGERARD Maher Attending Unavailable GERARD SEALS Referring Unavailable Colleen Mg MD Primary Care Provider Colleen Mg MD Attending Provider [phone] Allergies Allergy Classification Reported Allergen(s) Allergy Type Date of Onset Reaction(s) Facility (6 sources) Penicillins Drug allergy (disorder) 02-14-20 13 Hives [facility] Repository (1 source) Sulfonamides (Antibiotic) Drug allergy (disorder) 02-14-20 13 [facility] Repository (1 source) Darvocet-N 100 Drug allergy (disorder) 02-14-20 13 [facility] Repository (11 sources) Acetaminophen / Propoxyphene Drug Allergy Unknown [facility] Other (16 sources) Penicillin G Drug Allergy 05-14-19 24 [facility] (11 sources) Sulf-10 Drug allergy sensativity [facility] Other (5 sources) Penicillin; Translations: [penicillin] Drug Allergy Weal (disorder) [facility] (3 sources) Propoxyphene Drug Allergy 05-27-19 15 Unknown [facility] Other (3 sources) Substance with penicillin structure and antibacterial mechanism of action (substance) Drug allergy Unknown [facility] Other (2 sources) patient allergy list reviewed by nurse or physicia Propensity to adverse reactions 08-07-19 Comment:Done [facility] Other (5 sources) Substance with sulfonamide structure and antibacterial mechanism of action (substance) Drug allergy 03-04-19 25 Unknown [facility] Other (2 sources) Allergies Reconciled Propensity to adverse reactions Unknown [facility] Other (3 sources) Darvocet A500 *ANALGESICS - OPIOID* Propensity to adverse reactions Unknown [facility] Other (5 sources) Acetaminophen Drug Allergy 05-14-19 24 [facility] (8 sources) Propoxyphene; Translations: [propoxyphene] Drug Allergy 05-14-19 24 [facility] (5 sources) Sulfonamides (Antibiotic) Allergy to substance 05-14-19 24 [facility] (5 sources) Darvocet A500 *ANALGESICS - OP Allergy to substance 05-14-19 24 [facility] Comment on above: Free Text Allergy: D arvocet A500 *ANALGESICS - OPIOID* (1 source) acetaminophen / propoxyphene; Translations: [acetaminophen-pr opoxyphene] Drug Allergy Weal (disorder) [facility] Comment on above: darvocet generic (2 sources) Sulfonamides (Antibiotic); Translations: [sulfa drugs] Drug allergy Weal (disorder) [facility] (1 source) Azithromycin; Translations: [azithromycin] Drug Allergy [facility] Repository (1 source) Darvocet-N 50; Translations: [Darvocet-N 50] Propensity to adverse reactions (disorder) [facility] Repository (2 sources) Penicillins Drug Allergy 03-04-19 [facility] (2 sources) Other Propensity to adverse reactions 03-04-19 [facility] Medications Current Medications Medication Drug Class(es) Dates Sig (Normalized) Sig (Original) acetaminophen 250 mg / aspirin 250 mg / caffeine 65 mg oral tablet (16 sources) Platelet Aggregation Inhibitor, Nonsteroidal Anti-inflammatory Drug, Central Nervous System Stimulant, Methylxanthine Start: 05-14-2023 take 1 tablet by mouth every four to six hours as needed Aspirin-Acetamin ophen-Caffeine (Excedrin Extra Strength) 250-250-65 mg tablet Active 1 TAB PO EVERY 4-6 HOURS as needed May 14, 2023 12:00am Complies with drug therapy take 2 tablets by mouth every si x hours Excedrin Extra Strength 250-250-65 MG 2 tablets as needed Orally every 6 hrs Active [id number] 200 actuat albuterol 0.09 mg/actuat metered dose inhaler (4 sources) beta2-Adrenergic Agonist Start: 12-20-2023 take 1 puff(s) by inhalation every four to six hours as needed for wheezing Albuterol Sulfate 90 mcg/actuation HFA aerosol inhaler Active 2 PUFF INHALATION EVERY 4-6 HOURS as needed for shortness of breath or wheezing 6.7 December 20, 2023 12:00am Complies with drug therapy Start: 12-20-2023 take 1 puff(s) by in halation every four to six hours Albuterol Sulfate Active 2 PUFF INHALATION EVERY 4-6 HOURS 6.7 December 20, 2023 12:00am take 2 puff(s) by in halation every four hours albuterol HFA 90 mcg/act inhaler 2 puffs every 4 (four) hours if needed Active Albuterol Sulfate 90 mcg/actuation HFA aerosol inhaler (1 source) Start: 12-20-2023 take 1 puff(s) by inhalation every four to six hours as needed for wheezing Albuterol Sulfate 90 mcg/actuation HFA aerosol inhaler Active 2 PUFF INHALATION EVERY 4-6 HOURS as needed for shortness of breath or wheezing 6.7 December 20, 2023 12:00am alendronic acid 70 mg oral tablet (17 sources) Bisphosphonate Start: 05-14-2023 120 actuat fluticasone propionate 0.11 mg/actuat metered dose inhaler (20 sources) Corticosteroid Start: 12-11-2023 take 2 puff(s) by inhalation twice daily fluticasone CFC free 110 mcg/inh Inh Aer w/adapter 2 puff(s), Inhalation, BID, Refill(s) 0 Start Date: 12/11/23 Status: Ordered Start: 10-02-2023 take 2 puff(s) by in halation twice daily Fluticasone Propionate Active 2 PUFF INHALATION Twice daily October 02, 2023 9:54am [employer] puffs Inhalation Twice a day; Note: Source Status: Taking; Refills: 2; Provider: Saurav Duran Start: 08-28-2023 End: 10-02-2023 take 2 puff(s) by inhalation twice daily Fluticasone Propionate Discontinued 2 PUFF INHALATION Twice daily August 28, 2023 10:29am October 02, 2023 9:54am [employer] puffs Inhalation Twice a day; Note: Source Status: Taking; Refills: 2; Provider: Saurav Duran Start: 05-14-2023 End: 08-25-2024 take 2 puff(s) by inhalation twice daily Fluticasone Propionate 110 mcg/actuation HFA aerosol inhaler Active 2 PUFF INHALATION Twice daily August 25, 2024 4:28pm [employer] puffs Inhalation Twice a day; Note: Source Status: Taking; Refills: 2; Provider: Saurav Duran Complies with drug therapy Start: 05-14-2023 End: 08-28-2023 take 2 puff(s) by inhalation twice daily Fluticasone Propionate Discontinued 2 PUFF INHALATION Twice daily May 14, 2023 12:00am August 28, 2023 10:30am [employer] puffs Inhalation Twice a day; Note: Source Status: Taking; Refills: 2; Provider: Saurav Duran Start: 05-14-2023 take 2 puff(s) by in halation twice daily Fluticasone Propionate Active 2 PUFF INHALATION Twice daily May 14, 2023 12:00am [employer] puffs Inhalation Twice a day; Note: Source Status: Taking; Refills: 2; Provider: Saurav Duran Start: 02-27-2022 take 2 puff(s) by in halation twice daily Flovent HFA 110 MCG/ACT 2 puffs Inhalation Twice a day for 30 days Feb, Active Start: 03-28-2019 take 1 spray(s) nasa l route once daily Fluticasone Propionate 50 MCG/ACT 1 spray in each nostril Nasally Once a day for 30 days Dec, Active Fluticasone Propionate 110 mcg/actuation HFA aerosol inhaler (3 sources) Start: 10-02-2023 take 2 puff(s) by inhalation twice daily Fluticasone Propionate 110 mcg/actuation HFA aerosol inhaler Active 2 PUFF INHALATION Twice daily October 02, 2023 9:54am [employer] puffs Inhalation Twice a day; Note: Source Status: Taking; Refills: 2; Provider: Saurav Duran Start: 08-28-2023 End: 10-02-2023 take 2 puff(s) by inhalation twice daily Fluticasone Propionate 110 mcg/actuation HFA aerosol inhaler Discontinued 2 PUFF INHALATION Twice daily August 28, 2023 10:29am October 02, 2023 9:54am [employer] puffs Inhalation Twice a day; Note: Source Status: Taking; Refills: 2; Provider: Saurav Duran Start: 05-14-2023 End: 08-28-2023 take 2 puff(s) by inhalation twice daily Fluticasone Propionate 110 mcg/actuation HFA aerosol inhaler Discontinued 2 PUFF INHALATION Twice daily May 14, 2023 12:00am August 28, 2023 10:30am [employer] puffs Inhalation Twice a day; Note: Source Status: Taking; Refills: 2; Provider: Saurav Duran meloxicam 15 mg oral tablet (1 source) Nonsteroidal Anti-inflammatory Drug Start: 09-15-2024 take 1 tablet by mouth once daily Meloxicam 15 mg tablet Active 15 MG PO Daily September 15, 2024 12:00am Complies with drug therapy predniSONE 10 mg oral tablet (2 sources) Start: 03-04-2024 End: 03-16-2024 predniSONE (Deltasone) 10 MG tablet Indications: Primary osteoarthritis of right foot , Neuritis of right foot Take 1 tablet (10 mg) by mouth See administration instructions for 12 days Take one tablet three times a day x 3 days, then take one tablet twice a day x 3 days, then take one tablet once a day x 3 days, then take 1/2 tab once a day x 3 days 20 tablet 03/04/2024 03/16/2024 Active SUMAtriptan 25 mg oral tablet (19 sources) Serotonin-1b and Serotonin-1d Receptor Agonist Start: 12-11-2023 SUMAtriptan (Imitrex) 25 MG tablet Take 25 mg by mouth 12/11/2023 Active Start: 12-11-2023 take 1 tablet by claudia once as needed for headache Imitrex 25 mg Tab 25 mg = 1 tab(s), Oral, Once, PRN Migraine headache, Refills(s) 0 Start Date: 12/11/23 Status: Ordered Start: 05-14-2023 take 8 tablets by mo [facility] every twenty-four hours as needed Sumatriptan Succinate (Imitrex) 25 mg tablet Active 25 MG PO EVERY 2-4 HOURS as needed May 14, 2023 12:00am do not exceed 8 doses per 24 hrs Complies with drug therapy Imitrex Active Completed/Discontinued Medications Medication Drug Class(es) Dates Sig (Normalized) Sig (Original) azithromycin 250 mg oral tablet (11 sources) Macrolide Antimicrobial Start: 12-20-2023 End: 07-11-2024 Azithromycin 250 mg tablet Discontinued 0 PO .COMPLEX December 20, 2023 12:00am July 11, 2024 11:30am For 250 mg dose pack: take 500 mg today (day 1), then 250 mg for 4 days (days 2-5) PO Start: 12-20-2023 Azithromycin A ctive 0 PO .COMPLEX December 20, 2023 12:00am For 250 mg dose pack: take 500 mg today (day 1), then 250 mg for 4 days (days 2-5) PO Start: 05-14-2023 End: 11-29-2023 Azithromycin 250 mg tablet D iscontinued 0 PO .COMPLEX May 14, 2023 12:00am November 29, 2023 11:35am For 250 mg dose pack: take 500 mg today (day 1), then 250 mg for 4 days (days 2-5) PO Start: 05-14-2023 End: 11-29-2023 Azithromycin Discontinued 0 PO .COMPLEX May 14, 2023 12:00am November 29, 2023 11:35am For 250 mg dose pack: take 500 mg today (day 1), then 250 mg for 4 days (days 2-5) PO Start: 05-14-2023 Azithromycin A ctive 0 PO .COMPLEX May 14, 2023 12:00am For 250 mg dose pack: take 500 mg today (day 1), then 250 mg for 4 days (days 2-5) PO Start: 10-24-2022 Azithromycin 2 50 MG as directed Orally 2 tabs po today, then 1 tab daily x 4 more days for 5 Oct, Active methylPREDNISolone 4 mg oral tablet (17 sources) Corticosteroid Start: 07-11-2024 End: 09-15-2024 take 1 tablet by mouth once Methylprednisolone (Medrol (Star)) 4 mg tablets,dose pack Discontinued 0 PO per package directions July 11, 2024 12:00am September 15, 2024 3:37pm PO PER PKG DIR for 6 days Start: 08-21-2022 methylPREDNISo lone 4 MG as directed Orally for 6 days Aug, Active Start: 03-28-2019 montelukast 10 mg oral tablet (20 sources) Leukotriene Receptor Antagonist Start: 07-04-2022 End: 09-01-2024 take 1 tablet by mouth once daily at bedtime Montelukast 10 mg tablet Discontinued 10 MG PO Daily at bedtime May 14, 2023 12:00am May 14, 2023 3:49pm [employer] tablet Orally at bedtime; Note: Source Status: Taking; Refills: 3; Qty: 90 Tablet; Provider: Saurav Duran Problems Active Problems Problem Classification Problem Date Documented Date Episodic/Chronic Acquired foot deformities (2 sources) Hallux valgus AND bunion; Translations: [Hallux valgus (acquired), right foot] 03-04-2024 Chronic Asthma (18 sources) Mild intermittent asthma; Translations: [Mild intermittent asthma, uncomplicated] Chronic Chronic obstructive pulmonary disease and bronchiectasis (2 sources) Bronchitis; Translations: [Bronchitis, not specified as acute or chronic] 12-31-2023 Episodic Endometriosis (1 source) Endometriosis (clinical) 12-11-2023 Chronic Fever of unknown origin (6 sources) Fever, unspecified; Translations: [Fever] Onset: 01-24-2022 Episodic Genitourinary symptoms and ill-defined conditions (2 sources) Dysuria; Translations: [Dysuria] Episodic Headache; including migraine (12 sources) Migraine with aura; Translations: [Migraine with aura, not intractable, without status migrainosus] Chronic Influenza (13 sources) Influenza due to Influenza B virus; Translations: [Influenza B] Episodic Osteoarthritis (2 sources) Osteoarthritis of right foot; Translations: [Primary osteoarthritis, right ankle and foot] 03-04-2024 Chronic Osteoporosis (9 sources) Primary osteoporosis; Translations: [Age-related osteoporosis without current pathological fracture] Onset: 05-26-2014 11-29-2023 Chronic Other congenital anomalies (2 sources) Right metatarsus adductus; Translations: [Congenital metatarsus adductus, right foot] 03-04-2024 Chronic Other connective tissue disease (1 source) Trochanteric bursitis, left hip Episodic Other connective tissue disease (2 sources) Capsulitis; Translations: [Other enthesopathies, not elsewhere classified] 03-04-2024 Episodic Other connective tissue disease (2 sources) Pain in right foot; Translations: [Pain in right foot] 03-04-2024 Episodic Other nervous system disorders (2 sources) Right foot neuritis; Translations: [Unspecified mononeuropathy of right lower limb] 03-04-2024 Chronic Other non-traumatic joint disorders (2 sources) Arthralgia of the pelvic region and thigh; Translations: [Pain in left hip] Episodic Other non-traumatic joint disorders (4 sources) Pain in left shoulder; Translations: [Left shoulder pain] 07-11-2024 Episodic Other nutritional; endocrine; and metabolic disorders (5 sources) Body mass index 30+ - obesity; Translations: [Body mass index (BMI) 30.0-30.9, adult] Onset: 01-15-2017 12-26-2023 Chronic Other nutritional; endocrine; and metabolic disorders (1 source) Obesity caused by energy imbalance 12-26-2023 Chronic Other screening for suspected conditions (not mental disorders or infectious disease) (15 sources) Encounter for screening mammogram for malignant neoplasm of breast; Translations: [Encounter for screening for malignant neoplasm of colon] Onset: 12-26-2023 Episodic Other skin disorders (2 sources) Mass of subcutaneous tissue of back; Translations: [Localized swelling, mass and lump, trunk] 09-15-2024 Episodic Other skin disorders (2 sources) Mass of neck; Translations: [Localized swelling, mass and lump, neck] 09-15-2024 Episodic Other upper respiratory disease (2 sources) Seasonal allergic rhinitis; Translations: [Other seasonal allergic rhinitis] Chronic Other upper respiratory disease (3 sources) Allergic rhinitis; Translations: [Allergic rhinitis, unspecified] Onset: 12-20-2015 12-11-2023 Chronic Other upper respiratory infections (2 sources) Chronic sinusitis; Translations: [Chronic sinusitis, unspecified] Chronic Other upper respiratory infections (17 sources) Streptococcal sore throat; Translations: [Strep pharyngitis] Onset: 03-09-2015 Episodic Otitis media and related conditions (11 sources) Non-suppurative otitis media; Translations: [Unspecified nonsuppurative otitis media, right ear] Onset: 11-13-2017 Episodic Unclassified (3 sources) COUGH, UNSPECIFIED; Translations: [COUGH, UNSPECIFIED] Onset: 01-28-2022 Unclassified (1 source) CONTACT W/AND (SUSP) EXPOS COVID-19; Translations: [CONTACT W/AND (SUSP) EXPOS COVID-19] Onset: 01-28-2022 Unclassified (2 sources) Encounter for immunization safety counseling; Translations: [Encounter for immunization safety counseling] Onset: 02-04-2018 Unclassified (1 source) Patient encounter status 12-26-2023 Past or Other Problems Problem Classification Problem Date Documented Da te Episodic/Chronic Other non-traumatic joint disorders (4 sources) Pain in left hip; Translations: [PAIN IN LEFT HIP] Onset: 08-04-2021 Episodic Other nutritional; endocrine; and metabolic disorders (2 sources) Abnormal weight gain; Translations: [Abnormal weight gain] Onset: 03-09-2015 Episodic Unclassified (1 source) COUGH, UNSPECIFIED; Translations: [COUGH, UNSPECIFIED] Onset: 01-24-2022 Results Test Name Value Interpretation Reference Range Facility XR Foot - right 3 Viewson maging Result: 3 views foot: AP, MO, and lateral of the right foot were taken and show no acute osseous abnormalities. There is metatarsus adductus noted most significantly at metatarsals 1 2 and 3. There is prominent medial eminence of the 1st metatarsal head with lateral deviation of digits 1, 2, 3, and more mildly at digit 4. Tibial sesamoid position 5. There is joint space narrowing with Mild juxta-articular osteophyte formation noted at 1st MTPJ, 2nd and 3rd tarsometatarsal joints. [facility] [employer] Radiology Study observation (narrative) [facility] [employer] Reminderson 02-07-2024 Reminders Reminders - From: Yeny Greene LPN To: N - Clinical; Sent: 02/07/2024 13:07:28 EST Show up: 01/06/2034 07:00:00 EST Subject: colonoscopy recall Due Date/Time: 02/05/2034 07:00:00 EST Reminder/Recall Patient due for screening colonoscopy 02/05/2034. Normal [facility] Ambulatory Visit Summaryon 1 02-24-2023 Ambulatory Visit Summary Ambulatory Visit Summary ESTHER BOUDREAUX :1960 Visit Date:12/26/2023 Ambulatory Visit Instructions Your Diagnosis Screening for malignant neoplasm of colon Your Care Team Attending Physician - JESSIE NAYLOR, Khalif Pace Primary Care Physician - COLLEEN MG MD This Is Your Medications List Contact [...] you for choosing us for your care. Normal [facility] MG MAMM SCREEN 3D AMARA CADon 03-07-2022 MG MAMM SCREEN 3D AMARA CAD Patient: ESTHER BOUDREAUX Exam Date: 03/07/2022 : 1960 Gender:F Ordering : DR COLLEEN MG M.D. Admission #: [id number] Family : Order #: [id number] CLICK HERE TO VIEW EXAM RADIOLOGY REPORT PROCEDURE: MAMMOGRAM SCREENING 3D BILATERAL CAD COMPARISON: MG MAMM SCREEN AMARA W CAD, 09/30/2019. MG MAMM SCREEN 3D AMARA CAD, 11/09/2020. INDICATIONS: Screening mammography Calculator Name NCI Breast Cancer Risk Assessment Tool 5 Year Breast Cancer Risk 1.50% Lifetime Breast Cancer Risk 8.30% Personal Breast Cancer No Personal Ovarian Cancer No Treatments None Family Cancers None LOCATION: [facility] BREAST COMPOSITION: Scattered areas fibroglandular density. FINDINGS: DIAGNOSTIC CATEGORY 1--NEGATIVE. NO CHANGE FROM COMPARISON ASSESSMENT. Scattered benign-appearing calcifications are present. Scattered benign-appearing lymph nodes are present. RIGHT BREAST: No significant suspicious finding. LEFT BREAST: No significant suspicious finding. RECOMMENDATIONS: ROUTINE MAMMOGRAM AND CLINICAL EVALUATION IN 12 MONTHS. PLEASE NOTE: A NORMAL MAMMOGRAM DOES NOT EXCLUDE THE POSSIBILITY OF BREAST CANCER. A CLINICALLY SUSPICIOUS PALPABLE LUMP SHOULD BE BIOPSIED. Dictated by: Smitha Stroud MD on 03/08/2022 at 07:02 Approved by: Smitha Stroud MD on 03/08/2022 at 07:09 Normal [facility] XR CHEST 2 Von 03-07-2022 XR CHEST 2 V EXAM: Chest x-ray HISTORY: . Mild intermittent asthma . COMPARISON: None. TECHNIQUE: Frontal and lateral chest FINDINGS: Heart and vascularity are unremarkable. Lungs are expanded and free of focal infiltrates. Early spondylosis of the spine is noted. IMPRESSION: No acute heart or lung disease identified. Electronically authenticated by: SMITHA FOURNIER Date: 2022-03-07 17:04 Normal [facility] CBC AUTO DIFFon 03-04-2022 BASO # 0.0 103/ul Normal 0.0-0.1 [facility] Comment on above: Performed By: #### C BC #### [facility] [address] [place] [address] Dr. Nelida Nixon Basophils/100 WBC (Bld) 0.6 % Normal 0.2-2.0 [facility] Comment on above: Performed By: #### C BC #### [facility] [address] [place] [address] Dr. Nelida Nixon EO # 0.1 103/ul Normal 0.0-0.7 [facility] Comment on above: Performed By: #### C BC #### [facility] [address] [place] [address] Dr. Nelida Nixon Eosinophils/100 WBC (Bld) 1.8 % Normal 0.9-7.0 [facility] Comment on above: Performed By: #### C BC #### [facility] [address] [place] [address] Dr. Nelida Nixon Erythrocyte distribution width (RBC) [Ratio] 13.9 % Normal 11.0-15.0 [facility] Comment on above: Performed By: #### C BC #### [facility] [address] [place] [address] Dr. Nelida Nixon Hematocrit (Bld) [Volume fraction] 38.7 % Normal 36.0-48.0 [facility] Comment on above: Performed By: #### C BC #### [facility] [address] [place] [address] Dr. Nelida Nixon Hemoglobin (Bld) [Mass/Vol] 13.2 g/dL Normal 12.0-16.0 [facility] Comment on above: Performed By: #### C BC #### [facility] [address] [place] [address] Dr. Nelida Nixon IG # 0.03 10e3/ul Normal 0.00-0.03 [facility] Comment on above: Performed By: #### C BC #### [facility] [address] [place] [address] Dr. Nelida Nixon IG % 0.4 % Normal 0.0-0.5 [facility] Comment on above: Performed By: #### C BC #### [facility] [address] [place] [address] Dr. Nelida Nixon LYMPH # 2.2 103/ul Normal 1.2-3.8 [facility] Comment on above: Performed By: #### C BC #### [facility] [address] [place] [address] Dr. Nelida Nixon Lymphocytes/100 WBC (Bld) 30.4 % Normal 20.5-60.0 [facility] Comment on above: Performed By: #### C BC #### [facility] [address] [place] [address] Dr. Nelida Nixon MANUAL DIFF REQ NO Normal [facility] Comment on above: Performed By: #### C BC #### [facility] [address] [place] [address] Dr. Nelida Nixon MCH (RBC) [Entitic mass] 31.4 pg Normal 26.7-34.0 [facility] Comment on above: Performed By: #### C BC #### [facility] [address] [place] [address] Dr. Nelida Nixon MCHC (RBC) [Mass/Vol] 34.1 g/dL Normal 29.9-35.2 [facility] Comment on above: Performed By: #### C BC #### [facility] [address] [place], [place] [id number] Dr. Nelida Nixon MCV (RBC) [Entitic vol] 91.9 fL Normal 81.0-99.0 [facility] Comment on above: Performed By: #### C BC #### [facility] [address] [place] [address] Dr. Nelida Nixon MONO # 0.6 103/ul Normal 0.3-0.8 [facility] Comment on above: Performed By: #### C BC #### [facility] [address] [place] [address] Dr. Nelida Nixon Monocytes/100 WBC (Bld) 8.1 % Normal 1.7-12.0 [facility] Comment on above: Performed By: #### C BC #### [facility] [address] [place] [address] Dr. Nelida Nixon NEUT # 4.2 103/ul Normal 1.4-6.5 [facility] Comment on above: Performed By: #### C BC #### [facility] [address] [place] [address] Dr. Nelida Nixon Neutrophils/100 WBC (Bld) 58.7 % Normal 43.0-75.0 [facility] Comment on above: Performed By: #### C BC #### [facility] [address] [place] [address] Dr. Nelida Nixon Platelet mean volume (Bld) [Entitic vol] 8.8 fL Critically low 9.5-13.5 [facility] Comment on above: Performed By: #### C BC #### [facility] [address] [place] [address] Dr. Nelida Nixon PLT 199 103/ul Normal 150-450 [facility] Comment on above: Performed By: #### C BC #### [facility] [address] [place] [address] Dr. Nelida Nixon RBC 4.21 106/ul Normal 4.20-5.40 [facility] Comment on above: Performed By: #### C BC #### [facility] [address] [place] [address] Dr. Nelida Nixon WBC 7.2 103/ul Normal 4.0-11.0 [facility] Comment on above: Performed By: #### C BC #### [facility] [address] [address] [address] Nelida Nixon GLYCOHEMOGLOBIN A1Con 2022 ADA RECOMMENDATION SEE BELOW Normal [facility] Comment on above: Result Comment: ADA RECOMMENDED LIMIT 4.0 - 6.0 ADA THERAPEUTIC TARGET < 7.0 ACTION SUGGESTED > 7.0 Performed By: #### A 1C #### [facility] [address] [place] [address] Dr. Nelida Nxion Glucose [Mass/Vol] 117 mg/dL Normal [facility] Comment on above: Performed By: #### A 1C #### [facility] [address] [place] [address] Dr. Nelida Nixon HbA1c (Bld) [Mass fraction] 5.7 % Normal 4.5-6.2 [facility] Comment on above: Performed By: #### A 1C #### [facility] [address] [place] [address] Dr. Nelida Nixon LIPID PROFILEon 03-04-2022 CHOL-HDL RATIO NORM SEE BELOW Normal [facility] Comment on above: Result Comment: 3.3 - 4.4 LOW RISK 4.4 - 7.1 AVERAGE RISK 7.1 - 11.0 MODERATE RISK >11.0 HIGH RISK Performed By: #### L IPID, TSH, CMP #### [facility] [address] [place] [address] Dr. Nelida Nixon Cholesterol [Mass/Vol] 219 mg/dL Critically high <=200 [facility] Comment on above: Performed By: #### L IPID, TSH, CMP #### [facility] [address] [place] [address] Dr. Nelida Nixon Cholesterol in HDL [Mass/Vol] 62 mg/dL Critically high 40-60 [facility] Comment on above: Performed By: #### L IPID, TSH, CMP #### [facility] [address] [place] [address] Dr. Nelida Nixon Cholesterol in LDL [Mass/Vol] 118.0 mg/dL Normal [facility] Comment on above: Performed By: #### L IPID, TSH, CMP #### [facility] [address] [address] [address] Nelida Nixon Cholesterol.total/Ch olesterol in HDL [Mass ratio] 3.5 {ratio} Normal [facility] Comment on above: Performed By: #### L IPID, TSH, CMP #### [facility] [address] [address] [address] Nelida Nixon HDL NORMAL > or = 60 mg/dl - LOW CARDIOVASCULAR RISK <40 mg/dl - HIGH CARDIOVASCULAR RISK Normal [facility] Comment on above: Performed By: #### L IPID, TSH, CMP #### [facility] [address] [place] [address] Dr. Nelida Nixon LDL CALC NORMAL SEE BELOW Normal [facility] Comment on above: Result Comment: <100 mg/dl OPTIMAL 100 - 129 mg/dl NEAR OR ABOVE OPTIMAL 130 - 159 mg/dl BORDERLINE HIGH 160 - 189 mg/dl HIGH >190 mg/dl VERY HIGH Performed By: #### L IPID, TSH, CMP #### [facility] [address] [place] [address] Dr. Nelida Nixon Triglyceride [Mass/Vol] 195 mg/dL Critically high <=150 [facility] Comment on above: Performed By: #### L IPID, TSH, CMP #### [facility] [address] [place] [address] Dr. Nelida Nixon VLDL CALC 39.0 mg/dL Normal [facility] Comment on above: Performed By: #### L IPID, TSH, CMP #### [facility] [address] [place] [address] Dr. Nelida Nixon PROF 14(COMP METB)on 023 Albumin [Mass/Vol] 4.2 g/dL Normal 3.4-5.0 [facility] Comment on above: Performed By: #### L IPID, TSH, CMP #### [facility] [address] [place] [address] Dr. Nelida Nixon Albumin/Globulin [Mass ratio] 1.2 {ratio} Normal [facility] Comment on above: Performed By: #### L IPID, TSH, CMP #### [facility] [address] [place] [address] Dr. Nelida Nixon ALP [Catalytic activity/Vol] 60 U/L Normal 46-116 [facility] Comment on above: Performed By: #### L IPID, TSH, CMP #### [facility] [address] [place] [address] Dr. Nelida Nixon ALT [Catalytic activity/Vol] 78 U/L Critically high 14-59 [facility] Comment on above: Performed By: #### L IPID, TSH, CMP #### [facility] [address] [place] [address] Dr. Nelida Nixon Anion gap [Moles/Vol] 9.7 mmol/L Normal [facility] Comment on above: Performed By: #### L IPID, TSH, CMP #### [facility] [address] [place] [address] Dr. Nelida Nixon AST [Catalytic activity/Vol] 34 U/L Normal 15-37 [facility] Comment on above: Performed By: #### L IPID, TSH, CMP #### [facility] [address] [place] [address] Dr. Nelida Nixon Bilirubin [Mass/Vol] 0.4 mg/dL Normal 0.2-1.0 [facility] Comment on above: Performed By: #### L IPID, TSH, CMP #### [facility] [address] [place] [address] Dr. Nelida Nixon Calcium [Mass/Vol] 9.6 mg/dL Normal 8.5-10.1 [facility] Comment on above: Performed By: #### L IPID, TSH, CMP #### [facility] [address] [place] [address] Dr. Nelida Nixon Chloride [Moles/Vol] 105 mmol/L Normal 98-107 [facility] Comment on above: Performed By: #### L IPID, TSH, CMP #### [facility] [address] [place] [address] Dr. Nelida Nixon CO2 [Moles/Vol] 32.2 mmol/L Critically high 21.0-32.0 [facility] Comment on above: Performed By: #### L IPID, TSH, CMP #### [facility] [address] [address] [address] Nelida Nixon Creatinine [Mass/Vol] 0.79 mg/dL Normal 0.55-1.02 [facility] Comment on above: Performed By: #### L IPID, TSH, CMP #### [facility] [address] [address] [address] Nelida Nixon EGFR-AF TRISTANIAN >60 Normal >=[address] [facility] Comment on above: Performed By: #### L IPID, TSH, CMP #### [facility] [address] [address] [address] Nelida Nixon EGFR-NON AF TRISTANIAN >60 Normal >=60 [facility] Comment on above: Performed By: #### L IPID, TSH, CMP #### [facility] [address] [address] [address] Nelida Nixon Globulin (S) [Mass/Vol] 3.6 g/dL Normal [facility] Comment on above: Performed By: #### L IPID, TSH, CMP #### [facility] [address] [address] [address] Nelida Nixon Glucose [Mass/Vol] 95 mg/dL Normal 74-106 [facility] Comment on above: Performed By: #### L IPID, TSH, CMP #### [facility] [address] [address] [address] Nelida Nixon Potassium [Moles/Vol] 3.9 mmol/L Normal 3.5-5.1 [facility] Comment on above: Performed By: #### L IPID, TSH, CMP #### [facility] [address] [address] [address] Nelida Nixon Protein [Mass/Vol] 7.8 g/dL Normal 6.4-8.2 [facility] Comment on above: Performed By: #### L IPID, TSH, CMP #### [facility] [address] [place] [address] Dr. Nelida Nixon Sodium [Moles/Vol] 143 mmol/L Normal 136-145 [facility] Comment on above: Performed By: #### L IPID, TSH, CMP #### [facility] [address] [place] [address] Dr. Nelida Nixon Urea nitrogen [Mass/Vol] 16.0 mg/dL Normal 7.0-18.0 [facility] Comment on above: Performed By: #### L IPID, TSH, CMP #### [facility] [address] [place] [address] Dr. Nelida Nixon Urea nitrogen/Creatinine [Mass ratio] 20.3 mg/mg Normal [facility] Comment on above: Performed By: #### L IPID, TSH, CMP #### [facility] [address] [place] [address] Dr. Nelida Nixon TSHon 03-04-2022 TSH 1.200 uIU/mL Normal 0.358-3.740 [facility] Comment on above: Performed By: #### L IPID, TSH, CMP #### [facility] [address] [place] [address] Dr. Nelida Nixon INFLUENZA A AND B AGon 01-24 INFLUBNEG SEE BELOW Normal [facility] Comment on above: Result Comment: Nega tive for Flu B protein antigen. Infection due to Flu B cannot be ruled out. Flu B antigen in the sample may be below the detection limit of the test. Performed By: #### I NFLUAB #### [facility] [address] [place] [address] Dr. Nelida Nixon INFLUENZA A AG Positive Abnormal NEGATIVE SEE COMMENT [facility] Comment on above: Performed By: #### I NFLUAB #### [facility] [address] [place] [address] Dr. Nelida Nixon INFLUENZA B AG Negative Normal NEGATIVE SEE COMMENT [facility] Comment on above: Performed By: #### I NFLUAB #### [facility] [address] [place] [address] Dr. Nelida Nixon INFLUPOSH SEE BELOW Normal [facility] Comment on above: Result Comment: NOTE : Live attenuated influenzae vaccine viruses can cause a positive result for a rapid influenza diagnostic test if administered up to 7 days prior to rapid testing. Performed By: #### I NFLUAB #### [facility] [address] [place], [place] [address] Dr. Nelida Nixon INTERNAL CONTROLS Within Normal Limits Normal Wi thin Normal Limits [facility] Comment on above: Performed By: #### I NFLUAB #### [facility] [address] [address] [address] Nelida Nixon Vital Signs Date Time Vital Sign Value Performing Clinician Facility 09-15-2024 15:30-0400 Body height 158.75 cm Colleen Mg MD Work Phone: [facility] 09-15-2024 15:30-0400 Body mass index (BMI) [Ratio] 31.3 kg/m2 Colleen Mg MD Work Phone: [facility] 09-15-2024 15:30-0400 Body weight 78.92 kg Colleen Mg MD Work Phone: [facility] 09-15-2024 15:30-0400 Diastolic blood pressure 83 mm[Hg] Colleen Mg MD Work Phone: [facility] 09-15-2024 15:30-0400 Heart rate 85 /min Colleen Mg MD Work Phone: [facility] 09-15-2024 15:30-0400 Systolic blood pressure 130 mm[Hg] Colleen Mg MD Work Phone: [facility] 07-11-2024 11:09-0400 Body height 158.75 cm [facility] 07-11-2024 11:09-0400 Body mass index (BMI) [Ratio] 31.1 kg/m2 [facility] 07-11-2024 11:09-0400 Body weight 78.47 kg [facility] 07-11-2024 11:09-0400 Diastolic blood pressure 81 mm[Hg] [facility] 07-11-2024 11:09-0400 Heart rate 77 /min [facility] 07-11-2024 11:09-0400 Systolic blood pressure 132 mm[Hg] [facility] 03-04-2024 15:19-0500 Body height 160 cm Gerard Chan DPM Work Phone: [facility] 03-04-2024 15:19-0500 Body mass index (BMI) [Ratio] 29.76 kg/m2 Gerard Chan DPM Work Phone: [facility] 03-04-2024 15:19-0500 Body weight 76.2 kg Gerard Chan DPM Work Phone: [facility] 12-26-2023 15:22-0500 Blood Pressure Location Khalif MUKHERJEEL [facility] 12-26-2023 15:22-0500 Diastolic blood pressure 84 mm[Hg] Khalif ROMAN [facility] 12-26-2023 15:22-0500 Heart rate 76 /min Khalif ROMAN [facility] 12-26-2023 15:22-0500 Respiratory rate 16 /min Khalif MUKHERJEEL [facility] 12-26-2023 15:22-0500 Systolic blood pressure 124 mm[Hg] Khalif ROMAN [facility] 12-20-2023 15:28-0400 Body height 158.75 cm [facility] 12-20-2023 15:28-0400 Body mass index (BMI) [Ratio] 31.8 kg/m2 [facility] 12-20-2023 15:28-0400 Body weight 80.28 kg [facility] 12-20-2023 15:28-0400 Diastolic blood pressure 78 mm[Hg] [facility] 12-20-2023 15:28-0400 Heart rate 84 /min [facility] 12-20-2023 15:28-0400 SaO2% (BldA) [Mass fraction] 97 % [facility] 12-20-2023 15:28-0400 Systolic blood pressure 126 mm[Hg] [facility] 11-29-2023 11:35-0400 Body height 158.75 cm [facility] 11-29-2023 11:35-0400 Body mass index (BMI) [Ratio] 31.4 kg/m2 [facility] 11-29-2023 11:35-0400 Body weight 79.09 kg [facility] 11-29-2023 11:35-0400 Diastolic blood pressure 72 mm[Hg] [facility] 11-29-2023 11:35-0400 Heart rate 86 /min [facility] 11-29-2023 11:35-0400 Respiratory rate 14 /min [facility] 11-29-2023 11:35-0400 SaO2% (BldA) [Mass fraction] 97 % [facility] 11-29-2023 11:35-0400 Systolic blood pressure 126 mm[Hg] [facility] 05-14-2023 15:41-0400 Body height 158.75 cm [facility] 05-14-2023 15:41-0400 Body mass index (BMI) [Ratio] 32.3 kg/m2 [facility] 05-14-2023 15:41-0400 Body temperature 100.2 [degF] [facility] 05-14-2023 15:41-0400 Body weight 81.64 kg [facility] 05-14-2023 15:41-0400 Diastolic blood pressure 76 mm[Hg] [facility] 05-14-2023 15:41-0400 Heart rate 94 /min [facility] 05-14-2023 15:41-0400 Systolic blood pressure 115 mm[Hg] [facility] 12-20-2022 16:00-0400 Body height 158.75 cm Jeannine Green Other [facility] 12-20-2022 16:00-0400 Body mass index (BMI) [Ratio] 31.89 kg/m2 Jeannine Gutiérrezshani Other [facility] Other 12-20-2022 16:00-0400 Body temperature 98.1 [degF] Jeannine Cohentony Other [facility] Other 12-20-2022 16:00-0400 Body weight 80.38 kg Jeannine Cohentony Other [facility] Other 12-20-2022 16:00-0400 Diastolic blood pressure 84 mm[Hg] Jeannine Gutiérrezshani Other [facility] Other 12-20-2022 16:00-0400 SaO2% (BldA) [Mass fraction] 98 % Jeannine Kellyrhonda Other [facility] Other 12-20-2022 16:00-0400 Systolic blood pressure 130 mm[Hg] Jeannine Gutiérrezshani Other [facility] Other 08-21-2022 09:00-0400 Body height 158.75 cm Colleen Mg Other [facility] Other 08-21-2022 09:00-0400 Body mass index (BMI) [Ratio] 30.95 kg/m2 Colleen Mg Other [facility] Other 08-21-2022 09:00-0400 Body weight 78.02 kg Colleen Mg Other [facility] Other 08-21-2022 09:00-0400 Diastolic blood pressure 73 mm[Hg] Colleen Mg Other [facility] Other 08-21-2022 09:00-0400 Systolic blood pressure 115 mm[Hg] Colleen Mg Other [facility] Other 02-23-2022 16:30-0500 Body height 158.75 cm Colleen Mg Other [facility] Other 02-23-2022 16:30-0500 Body mass index (BMI) [Ratio] 33.11 kg/m2 Colleen Mg Other [facility] Other 02-23-2022 16:30-0500 Body weight 83.46 kg Colleen Mg Other [facility] Other 02-23-2022 16:30-0500 Diastolic blood pressure 62 mm[Hg] Colleen Mg Other [facility] Other 02-23-2022 16:30-0500 SaO2% (BldA) [Mass fraction] 97 % Colleen Mg Other [facility] Other 02-23-2022 16:30-0500 Systolic blood pressure 128 mm[Hg] Colleen Mg Other [facility] Other Encounters Encounter Date Encounter Type Care Provider Facility Start: 09-15-2024 End: 09-15-2024 ambulatory Colleen Mg MD Work Phone: [facility] Work Phone: Start: 09-15-2024 End: 09-15-2024 Patient encounter procedure Colleen Mg MD -[facility] Work Phone: Start: 07-11-2024 End: 07-11-2024 ambulatory [facility] Work Phone: Start: 07-11-2024 End: 07-11-2024 Patient encounter procedure [facility] Work Phone: Start: 03-04-2024 End: 03-04-2024 Office outpatient new 45 minutes Gerard Seals DPM Work Phone: [facility] Comment on above: Metatarsus adductus of right foot (Primary Dx); Hallux valgus with bunions of right foot; Primary osteoarthritis of right foot; Capsulitis of foot, right; Neuritis of right foot; Right foot pain Start: 03-04-2024 End: 03-04-2024 ambulatory GERARD SEALS Not Available Start: 03-04-2024 End: 03-04-2024 Bamboo flowsheet Gerard Seals DPM Work Phone: [facility] Start: 03-04-2024 End: 03-04-2024 Bamboo flowsheet Gerard Seals DPM Work Phone: [facility] Start: 02-06-2024 End: 02-06-2024 ambulatory Khalif R LONNYL Facility:[id number] Start: 12-26-2023 End: 12-26-2023 ambulatory Khalif R NILL Facility:[facility] Start: 12-26-2023 End: 12-26-2023 Patient encounter procedure Khalif R LONNYL [facility] [place] Start: 12-20-2023 End: 12-20-2023 ambulatory [facility] Work Phone: Start: 12-20-2023 End: 12-20-2023 Patient encounter procedure [facility] Work Phone: Start: 12-19-2023 Non-patient / Non-visit [facility] Work Phone: Start: 12-03-2023 ambulatory Khalif NILL Facility:[facility] Start: 11-29-2023 End: 11-29-2023 ambulatory [facility] Work Phone: Start: 11-29-2023 End: 11-29-2023 Patient encounter procedure [facility] Work Phone: Start: 05-14-2023 End: 05-14-2023 ambulatory [facility] Work Phone: Start: 05-14-2023 End: 05-14-2023 Patient encounter procedure [facility] Work Phone: Start: 12-20-2022 End: 12-20-2022 ambulatory Jeannine Norma Other [facility] Other Start: 12-20-2022 Office outpatient vi sit 15 minutes Jeannine Green [facility] Start: 12-18-2022 End: 12-18-2022 ambulatory Colleen Mg Other [facility] Other Start: 12-18-2022 Telephone encounter Colleen Mg [facility] Start: 10-24-2022 (Televisit) Televisit Colleen Ellison [facility] Start: 10-24-2022 End: 10-24-2022 ambulatory Colleen Mg Other [facility] Other Start: 08-21-2022 End: 08-21-2022 ambulatory Colleen Mg Other [facility] Other Start: 08-21-2022 Office outpatient vi sit 15 minutes Colleen Mg [facility] Start: 08-07-2022 End: 08-07-2022 ambulatory Colleen Mg Other [facility] Other Start: 08-07-2022 Telephone encounter Colleen Mg [facility] Start: 05-08-2022 End: 05-08-2022 ambulatory Colleen Mg Other [facility] Other Start: 05-08-2022 Telephone encounter Colleen Mg [facility] Start: 04-20-2022 End: 04-20-2022 ambulatory Colleen Mg Other [facility] Other Start: 04-20-2022 Telephone encounter Colleen Mg [facility] Start: 03-10-2022 End: 03-10-2022 ambulatory Colleen Mg Other [facility] Other Start: 03-10-2022 Telephone encounter Colleen Mg [facility] Start: 03-08-2022 End: 03-08-2022 ambulatory Colleen Mg Other [facility] Other Start: 03-08-2022 Telephone encounter Colleen Mg [facility] Start: 03-07-2022 End: 03-08-[address] COLLEEN MG Facility:[facility] Start: 03-04-2022 End: 03-05-[address] COLLEEN MG Facility:[facility] Start: 02-28-2022 End: 02-28-2022 ambulatory Colleen Mg Other [facility] Other Start: 02-28-2022 Telephone encounter Colleen Mg [facility] Start: 02-23-2022 End: 02-23-2022 ambulatory Colleen Mg Other [facility] Other Start: 02-23-2022 Encounter for genera l adult medical examination without abnormal findings Colleen Mg [facility] Start: 02-23-2022 Periodic preventive med est patient 40-64yrs Colleen Mg [facility] Start: 01-24-2022 End: 01-24-[address] COLLEEN MG Facility:[facility] Start: 01-24-2022 Adult health examination Meli Mg Other [facility] Other Start: 08-04-2021 End: 08-05-[address] COLLEEN MG Facility:[facility] Procedures Date Procedure Procedure Detail Performing Clinician Start: 03-04-2024 Radex foot complete minimum 3 views Gerard Seals DPM Work Phone: Start: 08-06-2018 Screening mammography M jelani Mg Other Start: 02-04-2018 Screening for malign ant neoplasm of colon Colleen Mg Other Start: 02-04-2018 Viral screening Colleen Mg Other Start: 09-25-2016 Mammography Gerard feng DPM Work Phone: Colonoscopy Khalif NILL Laparoscopy Khalif NILL Lysis of adhesions Khalif N ILL Screening for malign ant neoplasm of breast Colleen Mg Other Tympanostomy Khalif NILL Plan of Treatment Date Care Activity Detail Author Start: 04-08-2025 Screening for malign ant neoplasm of colon [facility] Start: 04-01-2024 End: 04-01-2024 Patient encounter procedure 04/01/2024 4:15 PM EST Office Visit [facility] [address] [place] [id number] Gerard Seals, DPM [address] [place] [address] [facility] Start: 03-04-2024 End: 03-04-2024 Patient encounter procedure 03/04/2024 3:30 PM EST Office Visit [facility] [address] [place] [phone] Gerard Seals DPLizbeth [address] [place] [address] Arrived [facility] Comment on above: Arrived Start: 11-29-2023 Patient referral [facility] Work Phone: Start: 10-21-2023 Influenza vaccination Influenz a Vaccine (#1) [facility] Start: 09-25-2017 Screening for malign ant neoplasm of breast Mammogram [facility] Start: 2002 Screening for malign ant neoplasm of breast Mammogram [facility] Start: 1992 Screening for malign ant neoplasm of cervix [facility] Start: 11-01-1983 Screening for malign ant neoplasm of cervix Pap Smear [facility] Start: 1962 Screening for malign ant neoplasm of colon [facility] DXA Skeletal system.axial Views for bone density [facility] MG Breast - bilatera l Screening [facility] Patient referral [facility] Work Phone: Chest [facility] Thyroid gland [facility] XR Shoulder - left Views [facility] Immunizations Immunization Date Immunization Notes Care Provider Fa cility 07-14-2020 SARS-CoV-2 (COVID-19 ) Ad26 vaccine, recombinant Khalif ROMAN [facility] [place] Comment on above: Result Comment: 2023: --SELECT TARGET POPULATION/OCCUPATION-- 02-17-2019 zoster vaccine, live Colleen Mg Other [facility] 09-14-2018 zoster vaccine, live Colleen Mg Other [facility] 08-11-2017 tetanus toxoid, reduced diphtheria toxoid, and acellular pertussis vaccine, adsorbed Colleen Mg Other [facility] Other 08-11-2017 tetanus and diphther ia toxoids, adsorbed, preservative free, for adult use (5 Lf of tetanus toxoid and 2 Lf of diphtheria toxoid) [facility] Payers Date Payer Category Payer Private Health Insurance [facility] [id number] 1960 Unknown [id number] 2.16.840.1.101109.3.579. 2.593 1960 Unknown [id number] 2.16.840.1.647335.3.579. 2.593 1960 Unknown [id number] 2.16.840.1.190543.3.579. 2.593 1960 Unknown [id number] 2.16.840.1.243078.3.579. 2.593 1960 Unknown [id number] 2.16.840.1.844539.3.579. 2.727 1960 Unknown [id number] 2.16.840.1.857254.3.579. 2.727 1960 Unknown [id number] 2.16.840.1.681590.3.579. 2.727 1960 Unknown [id number] 2.16.840.1.209313.3.579. 2.1259 1960 Unknown [id number] 2.16.840.1.770036.3.579. 2.1259 1959 Unknown [id number] 1957 Unknown [id number] Social History Date Type Detail Facility Unknown if ever smoked [facility] Other Sex Assigned At [facility] Start: 05-14-2023 End: 03-04-2024 Tobacco smoking status MEIS Never smoked tobacco (finding) [facility] Start: 1960 Sex Assigned At Female [facility] Tobacco smoking status Never [facility] Tobacco smoking stat [facility] Tobacco smoking consumption unknown [facility] Start: 03-01-2024 Gender identity Identifies as female gender (finding) [facility] Start: 03-01-2024 Sexual orientation Heterosexual (finding) [facility] Start: 03-04-2024 Tobacco use and exposure Smokeless tobacco non-user [facility] Start: 03-04-2024 Alcoholic beverage intake Ex-drinker (finding) [facility] Start: 03-04-2024 Alcoholic beverage intake [facility] Start: 07-11-2024 Sex Female (finding) [facility] Functional Status Date Assessment Result Facility 12-26-2023 Functional Status N/A [facility] [place] Clinical Notes 08-05-2021 to 07-11-2024 Note Date & Type Note Facility 07-11-2024 Evaluation note Diagnosis Onset Date Resolution Left shoulder pain acute July 112024 11:01am Mass in neck acute September 15, 2 025 3:17pm Mass of subcutaneous tissue of back acute September 15, 2024 3:17pm [facility] Work Phone: 1([phone]) 407-966401-14-2025 History of Present illness Narrative* Gerard Seals, VIRAJ - 03/04/2024 3:30 PM EST Images from the original note were not included. Subjective Patient ID: Esther Boudreaux is a 63 y.o. female who presents for Foot Pain (Esther Boudreaux 63yo New Patient presents with Right foot pain since 12/2023, NKI, pain is intermittent and level 10 at times. Patient also relates Bunion pain on the right foot at times. Patient typically wears a steel toed work boot. SS 8W). HPI Patient presents complaining of dorsal forefoot pain since December. She denies injury, bruising, redness, swelling. The pain is present after longer hours on her feet or in bed in the evening. Describes the pain as stabbing. She states she has had a bunion of the right foot for years but over the last 6 months it has become painful. She noted some numbness and tingling at the bump that is present intermittently. She works in a factory, wears steel-toed boots, recently moved to a job where she has to stand for 40 hours per week. At home she wears sandals or slip-on Jose shoes Review of Systems Medications Current Outpatient Medications: SUMAtriptan (Imitrex) 25 MG tablet, Take 25 mg by mouth, Disp: , Rfl: albuterol HFA 90 mcg/act inhaler, 2 puffs every 4 (four) hours if needed, Disp: , Rfl: montelukast (Singulair) 10 MG tablet, Take 10 mg by mouth Daily, Disp: , Rfl: predniSONE (Deltasone) 10 MG tablet, Take 1 tablet (10 mg) by mouth See administration instructionsfor 12 days Take one tablet three times a day x 3 days, then take one tablet twice a day x 3 days, then take one tablet once a day x 3 days, then take 1/2 tab once a day x 3 days, Disp: 20 tablet, Rfl: 0 Allergies Penicillins, Other, Propoxyphene, and Sulfa antibiotics Past Surgical History Past Surgical History: Procedure Laterality Date MYRINGOTOMY W/ TUBES Family History Family History Problem Relation Name Age of Onset COPD Mother Alicia Diabetes Mother Alicia Heart disease Father Matt Objective Physical Exam Constitutional: Appearance: Normal appearance. HENT: Head: Normocephalic and atraumatic. Cardiovascular: Comments: Pedal pulses: DP 2/4 bilateral, PT 2/4 bilateral. Skin temp is warm to warm. Varicosities: absent Hair growth: present Pulmonary: Effort: Pulmonary effort is normal. Musculoskeletal: Right lower leg: No edema. Left lower leg: No edema. Comments: ROM: AJ and STJ ROM are normal and pain free. No pain with ROM of 1st MTPJ MUSCLE STRENGTH: Dorsiflexion, plantarflexion, inversion, eversion are 5/5 b/l. PAIN: Right foot mild discomfort over the dorsomedial 1st metatarsal head, pain with palpation to the 2nd and 3rd tarsometatarsal joints. There is no pain at the remaining aspect of the 2nd and 3rd metatarsals. There is no pain at the 2nd and 3rd MTPJ. No pain with palpation to the dorsal 1st MTPJ or with range motion of the joint. DEFORMITY: HAV deformity is noted on the right. Large medial prominence of 1st met head, with lateral deviation of great toe. Great toe impinges on the 2nd toe and the 2nd and 3rd digits are laterally deviated at the MTPJ, mild contracture of toes at the MPJ and the PIPJ. Deformities are not able to be fully reduced. Skin: General: Skin is warm and dry. Capillary Refill: Capillary refill takes 2 to 3 seconds. Findings: No bruising or erythema. Comments: SKIN FINDINGS: mild erythema noted over the medial 1st metatarsal head right foot. Webspaces are clean and dry. Skin texture and turgor normal HYPERKERATOTIC LESION: sub met head 1 b/l and plantar medial hallux b/l NAIL PATHOLOGY: none Neurological: Mental Status: She is alert and oriented to person, place, and time. Comments: Light touch sensation intact XR foot 3+ views right maging Result: 3 views foot: AP, MO, and lateral of the right foot were taken and show no acute osseous abnormalities. There is metatarsus adductus noted most significantly at metatarsals 1 2 and 3. There is prominent medial eminence of the 1st metatarsal head with lateral deviation of digits 1, 2, 3, and more mildly at digit 4. Tibial sesamoid position 5. There is joint space narrowing with Mild juxta-articular osteophyte formation noted at 1st MTPJ, 2nd and 3rd tarsometatarsal joints. Assessment/Plan ICD-10-CM 1. 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 Hallux valgus with bunions of right foot M20.11 XR foot 3+ views right M21.611 3. Primary osteoarthritis of right foot M19.071 predniSONE (Deltasone) 10 MG tablet 4. Capsulitis of foot, right M77.8 5. Neuritis of right foot G57.91 predniSONE (Deltasone) 10 MG tablet 6. Right foot pain M79.671 XR foot 3+ views right Reviewed radigraphic and clinical findings with the pt. Reviewed that nothing conservatively will make the bunions resolve, but occasionally conservative care can render pt's asymptomatic. Reviewed that the paresthesias/ neuritis at the medial eminence are from rubbing in shoe gear. Recommended sheget a wider steel toe work boot and be fit and measured for tennis shoes. Discuss value of orthotics. Recommended Drew's running. Briefly discussed surgical correction today and explained the metatarsus adductus would also need to be addressed. She will try conservative measures. Discuss with patient the diagnosis of Metatarsus adductus and how this leads to bunion formation aswell as midfoot arthritis. Reviewed arthritis/capsulitis and that the chronic issue can sometimes have acute flares of pain/inflammation. Stress the importance of good supportive tie shoes, Showed pthow to relace shoes to avoid further pressure over painful area. Explain the anatomy of the joints involved. Also advise icing therapy and topical Voltaren gel in evenings. Patient tried Powerstep orthotics and will take them; they felt comfortable. Reviewed break in period. Erx Prednisone 10mg taper. Potential side effects cautioned. RTO 4-5 weeks This note was created with the assistance of a speech recognition program. While intending to generate a timely document that accurately reflects the content of the visit, no guarantee can be provided that every grammatical or spelling mistake has been or will be identified or corrected. Thank you for your understanding. Gerard Seals DPM documented in this encounterSaint John's Saint [facility] [id number] NoteGeneral Surgery Office/Clinic Note Chief Complaint consultation for screening colonoscopy HPI Staff 63 year old female presents on consultation from Dr. Mg for screening colonoscopy. Denies abdominal or rectal pain. No rectal bleeding or change in bowel habits. Denies nausea or vomiting. No unexplained weight loss. Patient had previous colonoscopy completed approximately 30 years ago. No knownfamily history of colon cancer. History of Present Illness 63 yo female with h/o migraines, asthma, osteoporosis, referred for colorectal screening; denies change in bms or blood in stools, no abd complaints; abd operations significant for abd laparoscopies with lysis of adhesions, last colonoscopy 30 years ago; no asa or NSAID use; no tobacco use; no fmhxof GI malignancy or IBD. Review of Systems PHQ Score Initial Depression Screen Score: 0 SCORE ROS - Provider Constitutional: no fever, no sweats, no weight loss. Eyes: no glasses, no blurred vision, no visual loss. ENMT: no dentures, no hoarseness, no swallowing difficulties, no hearing loss, no ear infection(s),no nose bleeds. Cardiovascular: normal blood pressure, no [...] Ad26 vaccine 07/14/2020 Recorded 2023-12-11: --SELECT TARGET POPULATION/OCC[facility]:Result Comment: Electronically Signed By: JESSIE NAYLOR, Khalif Aguilar\Date and Time Signed: 12/26/23 15:42 [id number] Hospital Discharge instructionsAmbulatory Orders* Referral to General Surgery Time Frame: 11/29/23, Location: None [facility] Work Phone: 1(694) 537-905611-01-2023 Evaluation note* Encounter Date Diagnosis Assessment Notes Treatment Notes Treatment Clinical Notes Dec, Dysfunction of left eustachian tube (ICD-10 - H69.92) Informed pt that there are no signs of a bacterial infection on exam today. Will not treat with an antibiotic at this time. Use Flonase nasal spray, 2 sprays in each nostril once daily. Takes 5-7 days of consistent use to see full benefits of medication. May use OTC Tylenol/Motrin as directed for any discomfort. If no improvement of symptoms, patient should follow up with PCP. Patient should follow up with PCP sooner if symptoms worsen. Patient verbalizes understanding and agreement with treatment plan. Dec, Viral upper respiratory illness (ICD-10 - J06.9) Discussed that symptoms that she was having appeared viral. We did discuss that she could have had COVID due to expsorue but she is out of the quaratine period so would not need to test at this point. Pt states that she is feeling better. Encourage fluids and rest. Symptoms should improve within the next 4-7 days. If no improvement of symptoms by 7-10 days, patient should follow up with PCP. Patient should follow up with PCP sooner if symptoms worsen. Patient verbalizes understanding and agreement with treatment plan. [facility] Other 09-05-2023 Evaluation note* Encounter Date Diagnosis Assessment Notes Treatment Notes Treatment Clinical Notes Oct, Acute non-recurrent maxillary sinusitis (ICD-10 - J01.00) Sinus infections can be triggered by a secondary infection from a viral URI or even seasonal allergies. Take medications as directed. Use saline nasal spray prior to presciption nasal spray. Take medications as directed, and complete all doses of medication even if you start to feel better. Patient advised to follow up with PCP if symptoms persist or worsen. Patient verbalized understanding and agreement with treatment plan. Also discussed adequate hydration and rest. [facility] Other 07-03-2023 Evaluation note* Encounter Date Diagnosis Assessment Notes Treatment Notes Treatment Clinical Notes Aug, Trochanteric bursitis, left hip (ICD-10 - M70.62) Offered PT. Short course of steroids prescribed. Copied and gave Esther home exercises. Aug, Migraine with aura and without status migrainosus, not intractable (ICD-10 - G43.109) Chronic problem. Will watch for FMLA Forms. [facility] Other 06-19-2023 Evaluation note* Encounter Date Diagnosis Assessment Notes Treatment Notes Treatment Clinical Notes Jul, Mild intermittent asthma without complication (ICD-10 - J45.20) [facility] Other 03-20-2023 Evaluation note* Encounter Date Diagnosis Assessment Notes Treatment Notes Treatment Clinical Notes Apr, Mild intermittent asthma without complication (ICD-10 - J45.20) [facility] Other 01-10-2023 Evaluation note* Encounter Date Diagnosis Assessment Notes Treatment Notes Treatment Clinical Notes Feb, Mild intermittent asthma without complication (ICD-10 - J45.20) [facility] Other 01-05-2023 Evaluation note* Encounter Date Diagnosis Assessment Notes Treatment Notes Treatment Clinical Notes Feb, Wellness examination (ICD-10 - Z00.00) Today during your appointment we discussed your health history and family history of chronic health problems. We also discussed screenings that should be done to rule out chronic health problems. These screenings can help prevent many health problems from becoming major as early intervention is the best treatment for all conditions. We will be checking your cholesterol, kidney function, blood sugar as well as special tests to rule out breast cancer and colon cancer. Based on the findings, we will come up with a plan together of when the best time for your next screening should be. Feb, Breast cancer screening by mammogram (ICD-10 - Z12.31) Feb, Colon cancer screening (ICD-10 - Z12.11) Feb, Mild intermittent asthma without complication (ICD-10 - J45.20) [facility] Other 06-17-2022 NotePROCEDURE: XR HIP LT 2 3V W PELVIS HISTORY: Pain of left hip joint , chronic COMPARISON: None. FINDINGS: BONES:No fracture, acute abnormality, or significant arthropathy. SOFT TISSUES:No visible soft tissue swelling. EFFUSION:None visible. OTHER: Negative. IMPRESSION: 1. Normal appearance of the hip joints. Electronically authenticated by: DODIE TENA Date: 2021-08-05 08:33[facility] Plan note No data available for this section [facility] [place] Evaluation noteNo InformationNortSCI-[facility] Credit [employer] Other Evaluation noteNo assessment information available [facility] Work Phone: Evaluation note* Diagnosis Onset Date Resolution Status Osteoporosis acute Screening for colon cancer a cute Screening mammogram for breast cancer acute [facility] Work Phone: Evaluation note* Diagnosis Onset Date Resolution Status Migraines acute Osteoporosis acute Screening for colon cancer a cute Screening mammogram for breast cancer acute [facility] Work Phone: Evaluation note* Diagnosis Metatarsus adductus of right foot- Primary Hallux valgus with bunions of right foot Primary osteoarthritis of right foot Capsulitis of foot, right Neuritis of right foot Right foot pain Pain in soft tissues of limb documented [facility]* Diagnosis Onset Date Resolution Status Admit Date Left shoulder pain acute July 112024 11:01am [facility] Work Phone: History general Narrative - Reported* Type Description Date Medical History Osteoporosis Medical History migraines Medical History asthma Medical History mammogram - 2019 Medical History colonoscopy - 2018 Medical History postmenopausal osteoporosis Surgical History endometriosis Surgical History CV diagnostics Surgical History PE tubes [facility] Other History general Narrative - Reported* Type Description Date Medical History Osteoporosis Medical History migraines Medical History asthma Medical History mammogram - 2019 Medical History colonoscopy - 2018 Medical History postmenopausal osteoporosis Surgical History endometriosis Surgical History CV diagnostics Surgical History PE tubes Hospitalization History see surigcal hx [facility] Other Hospital Discharge instructions No data available for this section [facility] [place] Progress note No data available for this section [facility] [place] Reason for referral (narrative)No reason for referral information availableUc Health Work Phone: Summary Purpose Family History Relationship Condition Age at Onset Recorded Date/T kana father Unknown Family history of other condition Unknown Not Specified Diabetes mellitus Unknown Heart disease Unknown Unknown Relationship Condition Age at Onset Recorded Date/T kana father Unknown Family history of other condition Unknown mother Diabetes mellitus Unknown Heart disease Unknown Unknown Advance Directives Advance Directive Response Recorded Date/ Time Advance Directives No May 13 024 9:35am Chief Complaint and Reason for Visit Chief Complaint Ear Infection Chief Complaint Wellness/FMLA Paperw ork Reason for Visit Osteoporosis Screening for colon cancer Screening mammogram for breast cancer Chief Complaint Wellness/FMLA Paperw ork CC Adult Risk Stratification Check Up Reason for Visit Migraines Osteoporosis Screening for colon cancer Screening mammogram for breast cancer Chief Complaint Admit Date L Shoulder Pain July 11, 2024 11:01 am Reason for Visit Admit Date Left shoulder pain July 11, 2024 11:01 am Chief Complaint Admit Date L Shoulder Pain July 11, 2024 11:01 am Lump on neck September 15, 2024 3:17 pm Reason for Visit Admit Date Left shoulder pain July 11, 2024 11:01 am Mass in neck September 15, 2024 3:17 pm Mass of subcutaneous tissue of back September 15, 2024 3:17pm Additional Source Comments INFORMATION SOURCE (unrecogn ized section and content) DATE CREATED AUTHOR 03/08/2022 [facility] DATE CREATED AUTHOR AUTHOR'S ORGANIZ ATION 02/13/2024 [facility] DATE CREATED AUTHOR AUTHOR'S ORGANIZ ATION 03/07/2024 [facility] EPIC REASON FOR VISIT (unrecogniz ed section and content) Reason Comments Foot Pain Esther Boudreaux 63yo N ew Patient presents with Right foot pain since 12/2023, NKI, pain is intermittent and level 10 at times. Patient also relates Bunion pain on the right foot at times. Patient typically wears a steel toed work boot. SS 8W Care Teams (unrecognized sec tion and content) Team Status: Active Member Role Status Dates Colleen Mg MD Primary Care Provider Active Team Status: Inactive Member Role Status Dates Colleen Mg MD Primary Care Provide r, Attending Provider Active Start: May 14, 2023 End: May 14, 2023 Team Status: Inactive Member Role Status Dates Colleen Mg MD Primary Care Provide r, Attending Provider Active Start: November 29, 2023 End: November 29, 2023 Team Status: Active Member Role Status Dates Colleen Mg MD Primary Care Provide r, Attending Provider Active Start: December 19, 2023 Team Status: Inactive Member Role Status Dates Colleen Mg MD Primary Care Provide r, Attending Provider Active Start: December 20, 2023 End: December 20, 2023 Team Status: Inactive Member Role Status Dates Colleen Mg MD Primary Care Provide r, Attending Provider Active Start: July 11, 2024 End: July 11, 2024 Team Status: Inactive Member Role Status Dates Colleen Mg MD Primary Care Provider Active Start: July 11, 2024 End: July 11, 2024 Colleen Mg MD Attending Provider Active St art: July 11, 2024 End: July 11, 2024 Team Status: Inactive Member Role Status Dates Colleen Mg MD Primary Care Provider Active Start: September 15, 2024 End: September 15, 2024 Colleen Mg MD Attending Provider Active St art: September 15, 2024 End: September 15, 2024 Goals (unrecognized section and content) Goals may be documented in a n alternate section FOR RECORDS PERTAINING TO PATIENTS WHO ARE OR HAVE BEEN ENROLLED IN A CHEMICAL DEPENDENCY/SUBSTANCEABUSE PROGRAM, SOME INFORMATION MAY BE OMITTED. This clinical summary was aggregated from multiple sources. Caution should be exercised in using it in the provision of clinical care. This summary normalizes information from multiple sources, and as a consequence, information in this document may materially change the coding, format and clinical context of patient data. In addition, data may be omitted in some cases. CLINICAL DECISIONS SHOULD BE BASED ON THE PRIMARY CLINICAL RECORDS. [facility] [employer] provides no warranty or guarantee of the accuracy or completeness of information in this document.
== END 2024-10-16 10:46 | disposition home or self-care (01) ==
LOC: RAD 10:45
PROVIDERS: PCP Family Medicine; Visit Provider Physician Assistant
DX: M25.511 Pain in right shoulder (principal); M25.512 Pain in left shoulder
CPT/HCPCS: 73030

== ENCOUNTER 2024-11-12 16:03 | Outpatient (OUT) | payer OTHER, SELFPAY ==
--- NOTE | 2024-11-12 16:05 | US_ITS ---
The [address] [address] Patient Name: APRYL VALADEZ MRN: [id number] date: 1960 Sex: F Assigned Patient Location: [place] Current Patient Location: Accession/Order Number: [id number] Exam Date: 11/12/2024 16:09 Report Date: 11/13/2024 08:44 At the request of: MARY ANN MG MD Procedure: US thyroid Soft tissue/thyroid ultrasound Reason for exam: Lump left submandibular region Comparison: Thyroid ultrasound 09/17/2024 Technique: Grayscale and color Doppler images of the thyroid in the area of concern was obtained. Findings: Right lobe of the thyroid gland measures 4.9 x 1.0 x 1.2 cm. The left lobe measures 4.0 x 1.0 x 0.9 cm. Isthmus measures 2.5 mm. A hypoechoic nodule is seen involving the inferior aspect of the right lobe measuring 6 x 4 x 4 mm. This was not seen on the prior ultrasound study. In the area concern involving the left neck multiple lymph nodes are identified with cortical thickening largest measuring 22 x 6 x 6 mm. A similar process is seen on the 09/17/2024 study. US/US thyroid Impression: No hypoechoic nodule inferior aspect of the right lobe of the thyroid gland measuring 6 x 4 x 4 mm. Repeat ultrasound in one year suggested. Multiple lymph nodes are seen involving the left neck one of which appears to be the palpable lump. Finding is nonspecific and could be reactive. A similar process is seen on the 09/17/2024 study. If etiology needs to be confirmed, tissue sampling should be considered. Impression dictated by: Boza Matias Jr., D.O. 11/13/2024 8:44 AM Dictation Location: [place] [address] Electronically authenticated by: [id number] Y Date: 11/13/2024 08:44
--- OUTSIDE RECORDS SUMMARY | 2024-11-12 16:07 | XMS_ITS | CCD ---
Author Organization [facility] Care Team Providers Care Orthopaedic General Name Role Phone SAURAV, DR COLLEEN Duran [...] Green Unavailable COLLEEN MG Primary Care Physician [phone] Khalif ROMAN Attending Unavailable Khalif ROMAN Attending Unavailable Unavailable Primary Care Provider UnavailGERARD Maher Attending Unavailable GERARD SEALS Referring Unavailable Colleen Mg MD Primary Care Provider [phone] Colleen Mg MD Attending Provider [phone] Colleen Mg MD Primary Care Provider Colleen Mg MD Attending Provider [phone] Brad Soriano DO Attending Provider Allergies Allergy Classification Reported Allergen(s) Allergy Type Date of Onset Reaction(s) Facility (7 sources) Penicillins Drug allergy (disorder) 02-14-20 13 Hives [facility] Repository (1 source) Sulfonamides (Antibiotic) Drug allergy (disorder) 02-14-20 13 [facility] Rep[facility] (1 source) Darvocet-N 100 Drug allergy (disorder) 02-14-20 13 [facility] (11 sources) Acetaminophen / Propoxyphene Drug Allergy Unknown indico Other (17 sources) Penicillin G Drug Allergy 05-14-19 24 [facility] (11 sources) Sulf-10 Drug allergy sensativity indico Other (5 sources) Penicillin; Translations: [penicillin] Drug Allergy Weal (disorder) [facility] (3 sources) Propoxyphene Drug Allergy 05-27-19 15 Unknown indico Other (3 sources) Substance with penicillin structure and antibacterial mechanism of action (substance) Drug allergy Unknown indico Other (2 sources) patient allergy list reviewed by nurse or physicia Propensity to adverse reactions 08-07-19 Comment:Done indico Other (5 sources) Substance with sulfonamide structure and antibacterial mechanism of action (substance) Drug allergy 03-04-19 25 Unknown indico Other (2 sources) Allergies Reconciled Propensity to adverse reactions Unknown indico Other (3 sources) Darvocet A500 *ANALGESICS - OPIOID* Propensity to adverse reactions Unknown indico Other (6 sources) Acetaminophen Drug Allergy 05-14-19 24 [facility] (9 sources) Propoxyphene; Translations: [propoxyphene] Drug Allergy 05-14-19 24 [facility] (6 sources) Sulfonamides (Antibiotic) Allergy to substance 05-14-19 24 [facility] (6 sources) Darvocet A500 *ANALGESICS - OP Allergy to substance 05-14-19 24 [facility] Comment on above: Free Text Allergy: D arvocet A500 *ANALGESICS - OPIOID* (1 source) acetaminophen / propoxyphene; Translations: [acetaminophen-pr opoxyphene] Drug Allergy Weal (disorder) [facility] Comment on above: darvocet generic (2 sources) Sulfonamides (Antibiotic); Translations: [sulfa drugs] Drug allergy Weal (disorder) [facility] (1 source) Azithromycin; Translations: [azithromycin] Drug Allergy [facility] Repository (1 source) Darvocet-N 50; Translations: [Darvocet-N 50] Propensity to adverse reactions (disorder) [facility] Repository (2 sources) Penicillins Drug Allergy 03-04-19 [facility] (2 sources) Other Propensity to adverse reactions 03-04-19 [facility] Medications Current Medications Medication Drug Class(es) Dates Sig (Normalized) Sig (Original) acetaminophen 250 mg / aspirin 250 mg / caffeine 65 mg oral tablet (17 sources) Platelet Aggregation Inhibitor, Nonsteroidal Anti-inflammatory Drug, Central Nervous System Stimulant, Methylxanthine Start: 05-14-2023 take 1 tablet by mouth every four to six hours as needed take 2 tablets by mouth every si x hours Excedrin Extra Strength 250-250-65 MG 2 tablets as needed Orally every 6 hrs Active [id number] 200 actuat albuterol 0.09 mg/actuat metered dose inhaler (5 sources) beta2-Adrenergic Agonist Start: 12-20-2023 take 1 puff(s) by inhalation every four to six hours as needed for wheezing Start: 12-20-2023 take 1 puff(s) by in [...] 12:00am alendronic acid 70 mg oral tablet (18 sources) Bisphosphonate Start: 05-14-2023 doxycycline hyclate 100 mg oral tablet (1 source) Tetracycline-class Drug Start: 09-22-2024 take 1 tablet by mouth twice daily 120 actuat fluticasone propionate 0.11 mg/actuat metered [...] inhaler Discontinued 2 PUFF INHALATION Twice daily October 02, 2023 9:54am August 25, 2024 4:28pm [employer] puffs Inhalation [...] Saurav Duran meloxicam 15 mg oral tablet (2 sources) Nonsteroidal Anti-inflammatory Drug Start: 09-15-2024 take 1 tablet by mouth once daily predniSONE 10 mg oral tablet (2 sources) [...] 03/16/2024 Active SUMAtriptan 25 mg oral tablet (20 sources) Serotonin-1b and Serotonin-1d Receptor Agonist Start: 12-11-2023 SUMAtriptan (Imitrex) 25 MG tablet Take 25 mg by mouth 12/11/2023 Active Start: 12-11-20[address] [facility] once as needed for headache Imitrex 25 mg Tab 25 mg = 1 tab(s), Oral, Once, PRN Migraine headache, Refills(s) 0 Start Date: 12/11/23 Status: Ordered Start: 05-14-2023 take 8 tablets by [facility] every twenty-four hours as needed Imitrex Active Completed/Discontinued Medications Medication Drug Class(es) Dates Sig (Normalized) Sig (Original) azithromycin 250 mg oral tablet (13 sources) Macrolide Antimicrobial Start: 12-20-2023 End: 07-11-2024 [...] Oct, Active methylPREDNISolone 4 mg oral tablet (18 sources) Corticosteroid Start: 07-11-2024 End: 09-15-2024 take [...] Refills: 3; Qty: 90 Tablet; Provider: Saurav Zacarias Active Problems Problem Classification Problem Date Documented Date Episodic/Chronic Acquired foot deformities (2 sources) Hallux valgus AND bunion; Translations: [Hallux valgus (acquired), right foot] 03-04-2024 Chronic Asthma (18 sources) Mild intermittent asthma; Translations: [Mild intermittent asthma, uncomplicated] Chronic Chronic obstructive pulmonary disease and bronchiectasis (3 sources) Bronchitis; Translations: [Bronchitis, not specified as acute or chronic] 12-31-2023 Episodic Endometriosis (1 source) Endometriosis (clinical) 12-11-2023 Chronic Fever of unknown origin (6 sources) Fever, unspecified; Translations: [Fever] Onset: 01-24-2022 Episodic Genitourinary symptoms and ill-defined conditions (2 sources) Dysuria; Translations: [Dysuria] Episodic Headache; including migraine (13 sources) Migraine with aura; Translations: [Migraine with aura, not intractable, without status migrainosus] Chronic Influenza (13 sources) Influenza due to Influenza B virus; Translations: [Influenza B] Episodic Osteoarthritis (4 sources) Osteoarthritis of right foot; Translations: [Primary osteoarthritis, right ankle and foot] 03-04-2024 Chronic Osteoporosis (10 sources) Primary osteoporosis; Translations: [Age-related osteoporosis without [...] [Pain in right foot] 03-04-2024 Episodic Other connective tissue disease (2 sources) Right rotator cuff syndrome; Translations: [Unspecified rotator cuff tear or rupture of right shoulder, not specified as traumatic] 10-16-2024 Episodic Other connective tissue disease (2 sources) Biceps tendinitis; Translations: [Bicipital tendinitis, right shoulder] 10-16-2024 Episodic Other nervous system disorders (2 sources) Right foot neuritis; Translations: [Unspecified mononeuropathy of right lower limb] 03-04-2024 Chronic Other non-traumatic joint disorders (2 sources) Arthralgia of the pelvic region and thigh; Translations: [Pain in left hip] Episodic Other non-traumatic joint disorders (6 sources) Pain in left shoulder; Translations: [Left shoulder pain] 07-11-2024 Episodic Other non-traumatic joint disorders (1 source) Pain in right shoulder; Translations: [Bilateral shoulder pain] 10-15-2024 Episodic Other nutritional; endocrine; and metabolic disorders (5 sources) Body mass index 30+ - obesity; Translations: [Body mass index (BMI) 30.0-30.9, adult] Onset: 01-15-2017 12-26-2023 Chronic Other nutritional; endocrine; and metabolic disorders (1 source) Obesity caused by energy imbalance 12-26-2023 Chronic Other screening for suspected conditions (not mental disorders or infectious disease) (17 sources) Encounter for screening mammogram for malignant neoplasm of breast; Translations: [Encounter for screening for malignant neoplasm of colon] Onset: 12-26-2023 Episodic Other skin disorders (4 sources) Mass of subcutaneous tissue of back; Translations: [Localized swelling, mass and lump, trunk] 09-15-2024 Episodic Other skin disorders (4 sources) Mass of neck; Translations: [Localized swelling, [...] 03-09-2015 Episodic Otitis media and related conditions (12 sources) Non-suppurative otitis media; Translations: [Unspecified nonsuppurative otitis media, right ear] Onset: 11-13-2017 Episodic Unclassified (3 sources) COUGH, UNSPECIFIED; Translations: [COUGH, UNSPECIFIED] Onset: 01-28-2022 Unclassified (1 source) CONTACT W/AND (SUSP) EXPOS COVID-19; Translations: [CONTACT W/AND (SUSP) EXPOS COVID-19] Onset: 01-28-2022 Unclassified (2 sources) Encounter for immunization safety counseling; Translations: [Encounter for immunization safety counseling] Onset: 02-04-2018 Unclassified (1 source) Patient encounter status 12-26-2023 Unclassified (2 sources) Left shoulder pain; Translations: [M25.512 - Pain in left shoulder] Past or Other Problems Problem Classification Problem [...] 1st MTPJ, 2nd and 3rd tarsometatarsal joints. [facility] Datumatecar e Radiology Study observation (narrative) [facility] Izzy Money Reminderson 02-07-2024 Reminders Reminders - From: Yeny Greene LPN To: GSN - Clinical; Sent: 02/07/2024 13:07:28 EST Show up: 01/06/2034 07:00:00 EST Subject: colonoscopy recall Due Date/Time: 02/05/2034 07:00:00 EST Reminder/Recall Patient due for screening colonoscopy 02/05/2034. Normal [facility] Ambulatory Visit Summaryon 1 02-24-2023 Ambulatory Visit Summary Ambulatory Visit Summary ESTHER BOUDREAUX Lizbeth :1960 Visit Date:12/26/2023 Ambulatory Visit Instructions Your [...] you for choosing us for your care. [facility] MG MAMM SCREEN 3D AMARA CADon 03-07-2022 MG MAMM SCREEN 3D AMARA CAD Patient: ESTHER BOUDREAUX Exam Date: 03/07/2022 : 1960 Gender:F Ordering : DR COLLEEN MG M.D. Admission #: [id number] Family : Order #: [id number] CLICK HERE TO VIEW EXAM RADIOLOGY REPORT [...] Treatments None Family Cancers None LOCATION: [facility] BREAST COMPOSITION: Scattered areas fibroglandular density. FINDINGS: [...] MD on 03/08/2022 at 07:09 Normal [facility] XR CHEST 2 Von 03-07-2022 XR CHEST [...] SMITHA FOURNIER Date: 2022-03-07 17:04 Normal [facility] CBC AUTO DIFFon 03-04-2022 BASO # 0.0 103/ul Normal 0.0-0.1 [facility] Comment on above: Performed By: #### C BC #### [facility] [address] [place] [address] Dr. Nelida Nixon Basophils/100 WBC (Bld) 0.6 % Normal 0.2-2.0 [facility] Comment on above: Performed By: #### C BC #### [facility] [address] [place] [address] Dr. Nelida Nixon EO # 0.1 103/ul Normal 0.0-0.7 [facility] Comment on above: Performed By: #### C BC #### [facility] [address] [place] [address] Dr. Nelida Nixon Eosinophils/100 WBC (Bld) 1.8 % Normal 0.9-7.0 [facility] Comment on above: Performed By: #### C BC #### [facility] [address] [place] [address] Dr. Nelida Nixon Erythrocyte distribution width (RBC) [Ratio] 13.9 % Normal 11.0-15.0 [facility] Comment on above: Performed By: #### C BC #### [facility] [address] [place] [address] Dr. Nelida Nixon Hematocrit (Bld) [Volume fraction] 38.7 % Normal 36.0-48.0 [facility] Comment on above: Performed By: #### C BC #### [facility] [address] [place] [address] Dr. Nelida Nixon Hemoglobin (Bld) [Mass/Vol] 13.2 g/dL Normal 12.0-16.0 [facility] Comment on above: Performed By: #### C BC #### [facility] [address] [place] [address] Dr. Nelida Nixon IG # 0.03 10e3/ul Normal 0.00-0.03 [facility] Comment on above: Performed By: #### C BC #### [facility] [address] [place] [address] Dr. Nelida Nixon IG % 0.4 % Normal 0.0-0.5 [facility] Comment on above: Performed By: #### C BC #### [facility] [address] [place] [address] Dr. Nelida Nixon LYMPH # 2.2 103/ul Normal 1.2-3.8 [facility] Comment on above: Performed By: #### C BC #### [facility] [address] [place] [address] Dr. Nelida Nixon Lymphocytes/100 WBC (Bld) 30.4 % Normal 20.5-60.0 [facility] Comment on above: Performed By: #### C BC #### [facility] [address] [place] [address] Dr. Nelida Nixon MANUAL DIFF REQ NO Normal [facility] Comment on above: Performed By: #### C BC #### [facility] [address] [place] [address] Dr. Nelida Nixon MCH (RBC) [Entitic mass] 31.4 pg Normal 26.7-34.0 [facility] Comment on above: Performed By: #### C BC #### [facility] [address] [place] [address] Dr. Nelida Nixon MCHC (RBC) [Mass/Vol] 34.1 g/dL Normal 29.9-35.2 [facility] Comment on above: Performed By: #### C BC #### [facility] [address] [place] [address] Dr. Nelida Nixon MCV (RBC) [Entitic vol] 91.9 fL Normal 81.0-99.0 [facility] Comment on above: Performed By: #### C BC #### [facility] [address] [place] [address] Dr. Nelida Nixon MONO # 0.6 103/ul Normal 0.3-0.8 [facility] Comment on above: Performed By: #### C BC #### [facility] [address] [place] [address] Dr. Nelida Nixon Monocytes/100 WBC (Bld) 8.1 % Normal 1.7-12.0 [facility] Comment on above: Performed By: #### C BC #### [facility] [address] [place] [address] Dr. Nelida Nixon NEUT # 4.2 103/ul Normal 1.4-6.5 [facility] Comment on above: Performed By: #### C BC #### [facility] [address] [place] [address] Dr. Nelida Nixon Neutrophils/100 WBC (Bld) 58.7 % Normal 43.0-75.0 [facility] Comment on above: Performed By: #### C BC #### [facility] [address] [place] [address] Dr. Nelida Nixon Platelet mean volume (Bld) [Entitic vol] 8.8 fL Critically low 9.5-13.5 [facility] Comment on above: Performed By: #### C BC #### [facility] [address] [place] [address] Dr. Nelida Nixon PLT 199 103/ul Normal 150-450 [facility] Comment on above: Performed By: #### C BC #### [facility] [address] [place] [address] Dr. Nelida Nixon RBC 4.21 106/ul Normal 4.20-5.40 [facility] Comment on above: Performed By: #### C BC #### [facility] [address] [address] [address] Nelida Nixon WBC 7.2 103/ul Normal 4.0-11.0 [facility] Comment on above: Performed By: #### C BC #### [facility] [address] [place] [address] Dr. Nelida Nixon GLYCOHEMOGLOBIN A1Con 2022 ADA RECOMMENDATION SEE BELOW Normal [facility] Comment on above: Result Comment: ADA RECOMMENDED LIMIT 4.0 - 6.0 ADA THERAPEUTIC TARGET < 7.0 ACTION SUGGESTED > 7.0 Performed By: #### A 1C #### [facility] [address] [place] [address] Dr. Nelida Nixon Glucose [Mass/Vol] 117 mg/dL Normal [facility] Comment on above: Performed By: #### A 1C #### [facility] [address] [place] [address] Dr. Nelida Nixon HbA1c (Bld) [Mass fraction] 5.7 % Normal 4.5-6.2 [facility] Comment on above: Performed By: #### A 1C #### [facility] [address] [place] [address] Dr. Nelida Nixon LIPID PROFILEon 03-04-2022 CHOL-HDL RATIO NORM SEE BELOW Normal [facility] Comment on above: Result Comment: 3.3 - 4.4 LOW RISK 4.4 - 7.1 AVERAGE RISK 7.1 - 11.0 MODERATE RISK >11.0 HIGH RISK Performed By: #### L IPID, TSH, CMP #### [facility] [address] [place] [address] Dr. Nelida Nixon Cholesterol [Mass/Vol] 219 mg/dL Critically high <=200 [facility] Comment on above: Performed By: #### L IPID, TSH, CMP #### [facility] [address] [place] [address] Dr. Nelida Nixon Cholesterol in HDL [Mass/Vol] 62 mg/dL Critically high 40-60 [facility] Comment on above: Performed By: #### L IPID, TSH, CMP #### [facility] [address] [address] [address] Nelida Nixon Cholesterol in LDL [Mass/Vol] 118.0 mg/dL Normal [facility] Comment on above: Performed By: #### L IPID, TSH, CMP #### [facility] [address] [address] [address] Nelida Nixon Cholesterol.total/Ch olesterol in HDL [Mass ratio] 3.5 {ratio} Normal [facility] Comment on above: Performed By: #### L IPID, TSH, CMP #### [facility] [address] [address] [address] Nelida Nixon HDL NORMAL > or = 60 mg/dl - LOW CARDIOVASCULAR RISK <40 mg/dl - HIGH CARDIOVASCULAR RISK Normal [facility] Comment on above: Performed By: #### L IPID, TSH, CMP #### [facility] [address] [place] [address] Dr. Nelida Nixon LDL CALC NORMAL SEE BELOW Normal [facility] Comment on above: Result Comment: <100 mg/dl OPTIMAL 100 - 129 mg/dl NEAR OR ABOVE OPTIMAL 130 - 159 mg/dl BORDERLINE HIGH 160 - 189 mg/dl HIGH >190 mg/dl VERY HIGH Performed By: #### L IPID, TSH, CMP #### [facility] [address] [place] [address] Dr. Nelida Nixon Triglyceride [Mass/Vol] 195 mg/dL Critically high <=150 [facility] Comment on above: Performed By: #### L IPID, TSH, CMP #### [facility] [address] [place] [address] Dr. Nelida Nixon VLDL CALC 39.0 mg/dL Normal [facility] Comment on above: Performed By: #### L IPID, TSH, CMP #### [facility] [address] [place] [address] Dr. Nelida Nixon PROF 14(COMP METB)on 023 Albumin [Mass/Vol] 4.2 g/dL Normal 3.4-5.0 [facility] Comment on above: Performed By: #### L IPID, TSH, CMP #### [facility] [address] [address] [address] Nelida Nixon Albumin/Globulin [Mass ratio] 1.2 {ratio} Normal [facility] Comment on above: Performed By: #### L IPID, TSH, CMP #### [facility] [address] [address] [address] Nelida Nixon ALP [Catalytic activity/Vol] 60 U/L Normal 46-116 [facility] Comment on above: Performed By: #### L IPID, TSH, CMP #### [facility] [address] [address] [address] Nelida Nixon ALT [Catalytic activity/Vol] 78 U/L Critically high 14-59 [facility] Comment on above: Performed By: #### L IPID, TSH, CMP #### [facility] [address] [address] [address] Nelida Nixon Anion gap [Moles/Vol] 9.7 mmol/L Normal [facility] Comment on above: Performed By: #### L IPID, TSH, CMP #### [facility] [address] [address] [address] Nelida Nixon AST [Catalytic activity/Vol] 34 U/L Normal 15-37 [facility] Comment on above: Performed By: #### L IPID, TSH, CMP #### [facility] [address] [address] [address] Nelida Nixon Bilirubin [Mass/Vol] 0.4 mg/dL Normal 0.2-1.0 [facility] Comment on above: Performed By: #### L IPID, TSH, CMP #### [facility] [address] [address] [address] Nelida Nixon Calcium [Mass/Vol] 9.6 mg/dL Normal 8.5-10.1 [facility] Comment on above: Performed By: #### L IPID, TSH, CMP #### [facility] [address] [address] [address] Nelida Nixon Chloride [Moles/Vol] 105 mmol/L Normal 98-107 [facility] Comment on above: Performed By: #### L IPID, TSH, CMP #### [facility] [address] [address] [address] Nelida Nixon CO2 [Moles/Vol] 32.2 mmol/L Critically high 21.0-32.0 [facility] Comment on above: Performed By: #### L IPID, TSH, CMP #### [facility] [address] [place] [address] Dr. Nelida Nixon Creatinine [Mass/Vol] 0.79 mg/dL Normal 0.55-1.02 [facility] Comment on above: Performed By: #### L IPID, TSH, CMP #### [facility] [address] [place] [address] Dr. Nelida Nixon EGFR-AF LIBERIAN >60 Normal >=60 [facility] Comment on above: Performed By: #### L IPID, TSH, CMP #### [facility] [address] [place] [address] Dr. Nelida Nixon EGFR-NON AF LIBERIAN >60 Normal >=60 [facility] Comment on above: Performed By: #### L IPID, TSH, CMP #### [facility] [address] [place] [address] Dr. Nelida Nixon Globulin (S) [Mass/Vol] 3.6 g/dL Normal [facility] Comment on above: Performed By: #### L IPID, TSH, CMP #### [facility] [address] [address] [address] Nelida Nixon Glucose [Mass/Vol] 95 mg/dL Normal 74-106 [facility] Comment on above: Performed By: #### L IPID, TSH, CMP #### [facility] [address] [place] [address] Dr. Nelida Nixon Potassium [Moles/Vol] 3.9 mmol/L Normal 3.5-5.1 [facility] Comment on above: Performed By: #### L IPID, TSH, CMP #### [facility] [address] [place] [address] Dr. Nelida Nixon Protein [Mass/Vol] 7.8 g/dL Normal 6.4-8.2 [facility] Comment on above: Performed By: #### L IPID, TSH, CMP #### [facility] [address] [place] [address] Dr. Nelida Nixon Sodium [Moles/Vol] 143 mmol/L Normal 136-145 [facility] Comment on above: Performed By: #### L IPID, TSH, CMP #### [facility] [address] [place] [address] Dr. Nelida Nixon Urea nitrogen [Mass/Vol] 16.0 mg/dL Normal 7.0-18.0 [facility] Comment on above: Performed By: #### L IPID, TSH, CMP #### [facility] [address] [place] [address] Dr. Nelida Nixon Urea nitrogen/Creatinine [Mass ratio] 20.3 mg/mg Normal [facility] Comment on above: Performed By: #### L IPID, TSH, CMP #### [facility] [address] [place] [address] Dr. Nelida Nixon TSHon 03-04-2022 TSH 1.200 uIU/mL Normal 0.358-3.740 [facility] Comment on above: Performed By: #### L IPID, TSH, CMP #### [facility] [address] [place] [address] Dr. Nelida Nixon INFLUENZA A AND B AGon 01-24 [facility] SEE BELOW Normal [facility] Comment on above: Result Comment: Nega tive for Flu B protein antigen. Infection due to Flu B cannot be ruled out. Flu B antigen in the sample may be below the detection limit of the test. Performed By: #### I NFLUAB #### [facility] [address] [place] [address] Dr. Nelida Nixon INFLUENZA A AG Positive Abnormal NEGATIVE SEE COMMENT [facility] Comment on above: Performed By: #### I NFLUAB #### [facility] [address] [place] [address] Dr. Nelida Nixon INFLUENZA B AG Negative Normal NEGATIVE SEE COMMENT [facility] Comment on above: Performed By: #### I NFLUAB #### [facility] [address] [address] [address] Nelida Nixon INFLUPOSH SEE BELOW Normal [facility] Comment on above: Result Comment: NOTE : Live attenuated influenzae vaccine viruses can cause a positive result for a rapid influenza diagnostic test if administered up to 7 days prior to rapid testing. Performed By: #### I NFLUAB #### [facility] [address] [address] [address] Nelida Nixon INTERNAL CONTROLS Within Normal Limits Normal Wi thin Normal Limits [facility] Comment on above: Performed By: #### I NFLUAB #### [facility] [address] [address] [address] Nelida Nixon Vital Signs Date Time Vital Sign Value Performing Clinician Facility 09-15-2024 15:30-0400 Body height 158.75 cm Colleen Mg MD Work Phone: [facility] 09-15-2024 15:30-0400 Body mass index (BMI) [Ratio] 31.3 kg/m2 Colleen Mg MD Work Phone: [facility] 09-15-2024 15:30-0400 Body weight 78.92 kg Colleen Mg MD Work Phone: [facility] 09-15-2024 15:30-0400 Diastolic blood pressure 83 mm[Hg] Colleen Mg MD Work Phone: [facility] 09-15-2024 15:30-0400 Heart rate 85 /min Colleen Mg MD Work Phone: [facility] 09-15-2024 15:30-0400 Systolic blood pressure 130 mm[Hg] Colleen Mg MD Work Phone: [facility] 07-11-2024 11:090400 Body height 158.75 cm [facility] 07-11-2024 11:09-0400 Body mass index (BMI) [Ratio] 31.1 kg/m2 [facility] 07-11-2024 11:09-0400 Body weight 78.47 kg [facility] 07-11-2024 11:09-0400 Diastolic blood pressure 81 mm[Hg] [facility] 07-11-2024 11:09-0400 Heart rate 77 /min [facility] 07-11-2024 11:09-0400 Systolic blood pressure 132 mm[Hg] [facility] 03-04-2024 15:19-0500 Body height 160 cm Gerard Seals DPM Work Phone: [facility] 03-04-2024 15:19-0500 Body mass index (BMI) [Ratio] 29.76 kg/m2 Gerard Chan DPM Work Phone: [facility] 03-04-2024 15:19-0500 Body weight 76.2 kg Gerard Seals DPM Work Phone: [facility] 12-26-2023 15:22-0500 Blood Pressure Location Khalif MUKHERJEEL [facility] 12-26-2023 15:22-0500 Diastolic blood pressure 84 mm[Hg] Khalif MUKHERJEEL [facility] 12-26-2023 15:22-0500 Heart rate 76 /min Khalif NILL [facility] 12-26-2023 15:22-0500 Respiratory rate 16 /min Khalif NILL [facility] 12-26-2023 15:22-0500 Systolic blood pressure 124 mm[Hg] Khalif NILL [facility] 12-20-2023 15:28-0400 Body height 158.75 cm [facility] 12-20-2023 15:28-0400 Body mass index (BMI) [Ratio] 31.8 kg/m2 [facility] 12-20-2023 15:28-0400 Body weight 80.28 kg [facility] 12-20-2023 15:28-0400 Diastolic blood pressure 78 mm[Hg] [facility] 12-20-2023 15:28-0400 Heart rate 84 /min [facility] 12-20-2023 15:28-0400 SaO2% (BldA) [Mass fraction] 97 % [facility] 12-20-2023 15:28-0400 Systolic blood pressure 126 mm[Hg] [facility] 11-29-2023 11:35-0400 Body height 158.75 cm [facility] 11-29-2023 11:35-0400 Body mass index (BMI) [Ratio] 31.4 kg/m2 [facility] 11-29-2023 11:35-0400 Body weight 79.09 kg [facility] 11-29-2023 11:35-0400 Diastolic blood pressure 72 mm[Hg] [facility] 11-29-2023 11:35-0400 Heart rate 86 /min [facility] 11-29-2023 11:35-0400 Respiratory rate 14 /min [facility] 11-29-2023 11:35-0400 SaO2% (BldA) [Mass fraction] 97 % [facility] 11-29-2023 11:35-0400 Systolic blood pressure 126 mm[Hg] [facility] 05-14-2023 15:41-0400 Body height 158.75 cm [facility] 05-14-2023 15:41-0400 Body mass index (BMI) [Ratio] 32.3 kg/m2 [facility] 05-14-2023 15:41-0400 Body temperature 100.2 [degF] [facility] 05-14-2023 15:41-0400 Body weight 81.64 kg [facility] 05-14-2023 15:41-0400 Diastolic blood pressure 76 mm[Hg] [facility] 05-14-2023 15:41-0400 Heart rate 94 /min [facility] 05-14-2023 15:41-0400 Systolic blood pressure 115 mm[Hg] [facility] 12-20-2022 16:00-0400 Body height 158.75 cm Jeannine Green Other [facility] Other 12-20-2022 16:00-0400 Body mass index (BMI) [Ratio] 31.89 kg/m2 Jeannine Green Other [facility] Other 12-20-2022 16:00-0400 Body temperature 98.1 [degF] Jeannine Green Other [facility] Other 12-20-2022 16:00-0400 Body weight 80.38 kg Jeannine Green Other [facility] Other 12-20-2022 16:00-0400 Diastolic blood pressure 84 mm[Hg] Jeannine Gutiérrezshani Other [facility] Other 12-20-2022 16:00-0400 SaO2% (BldA) [Mass fraction] 98 % Jeannine Cohentony Other [facility] Other 12-20-2022 16:00-0400 Systolic blood pressure 130 mm[Hg] Jeannine Norma Other [facility] Other 08-21-2022 09:00-0400 Body height 158.75 cm Colleen Mg Other [facility] Other 08-21-2022 09:00-0400 Body mass index (BMI) [Ratio] 30.95 kg/m2 Colleen Mg Other [facility] Other 08-21-2022 09:00-0400 Body weight 78.02 kg Colleen Mg Other [facility] Other 08-21-2022 09:00-0400 Diastolic blood pressure 73 mm[Hg] Colleen Mg Other [facility] Other 08-21-2022 09:00-0400 Systolic blood pressure 115 mm[Hg] Colleen Mg Other [facility] Other 02-23-2022 16:30-0500 Body height 158.75 cm Colleen Mg Other [facility] Other 02-23-2022 16:30-0500 Body mass index (BMI) [Ratio] 33.11 kg/m2 Colleen Mg Other [facility] Other 02-23-2022 16:30-0500 Body weight 83.46 kg Colleen Mg Other [facility] Other 02-23-2022 16:30-0500 Diastolic blood pressure 62 mm[Hg] Colleen Mg Other [facility] Other 02-23-2022 16:30-0500 SaO2% (BldA) [Mass fraction] 97 % Colleen Mg Other [facility] Other 02-23-2022 16:30-0500 Systolic blood pressure 128 mm[Hg] Colleen Mg Other [facility] Other Encounters Encounter Date Encounter Type Care Provider Facility Start: 10-16-2024 End: 10-16-2024 ambulatory Colleen Mg MD Work Phone: [facility] Work Phone: Start: 10-16-2024 End: 10-16-2024 Patient encounter procedure Brad Soriano DO -[facility] Work Phone: Start: 09-15-2024 End: 09-15-2024 ambulatory Colleen Mg MD Work Phone: [facility] Work Phone: Start: 09-15-2024 End: 09-15-2024 Patient encounter procedure Colleen Mg MD -[facility] Work Phone: Start: 07-11-2024 End: 07-11-2024 ambulatory [facility] Work Phone: Start: 07-11-2024 End: 07-11-2024 Patient encounter procedure [facility] Work Phone: Start: 03-04-2024 End: 03-04-2024 Office outpatient new 45 minutes Gerard Seals DPM Work Phone: [facility] Comment on above: Metatarsus adductus of right foot (Primary Dx); Hallux valgus with bunions of right foot; Primary osteoarthritis of right foot; Capsulitis of foot, right; Neuritis of right foot; Right foot pain Start: 03-04-2024 End: 03-04-2024 ambulatory GERARD SEALS Not Available Start: 03-04-2024 End: 03-04-2024 Bamboo flowsheet Gerard Seals DPM Work Phone: [facility] Start: 03-04-2024 End: 03-04-2024 Bamboo flowsheet Gerard Seals DPM Work Phone: [facility] Start: 02-06-2024 End: 02-06-2024 ambulatory Khalif ROMAN Facility:[id number] Start: 12-26-2023 End: 12-26-2023 ambulatory Khalif ROMAN Facility: [facility] Start: 12-26-2023 End: 12-26-2023 Patient encounter procedure Khalif ROMAN [facility] Start: 12-20-2023 End: 12-20-2023 ambulatory [facility] Work Phone: Start: 12-20-2023 End: 12-20-2023 Patient encounter procedure [facility] Physician [facility] Work Phone: Start: 12-19-2023 Non-patient / Non-visit [facility] Work Phone: Start: 12-03-2023 ambulatory Khalif ROMAN Facility:[facility] Start: 11-29-2023 End: 11-29-2023 ambulatory [facility] Work Phone: Start: 11-29-2023 End: 11-29-2023 Patient encounter procedure [facility] Physician [facility] Work Phone: Start: 05-14-2023 End: 05-14-2023 ambulatory [facility] Work Phone: Start: 05-14-2023 End: 05-14-2023 Patient encounter procedure [facility] Physician [facility] Work Phone: Start: 12-20-2022 End: 12-20-2022 ambulatory Jeannine Green Other [facility] Other Start: 12-20-2022 Office outpatient vi sit 15 minutes Jeannine Green [facility] Start: 12-18-2022 End: 12-18-2022 ambulatory Colleen Mg Other [facility] Other Start: 12-18-2022 Telephone encounter Colleen Mg [facility] Start: 10-24-2022 (Televisit) Televisit Colleen Ellison [facility] Start: 10-24-2022 End: 10-24-2022 ambulatory Colleen Mg Other [facility] Other Start: 08-21-2022 End: 08-21-2022 ambulatory Colleen Mg Other [facility] Other Start: 08-21-2022 Office outpatient vi sit 15 minutes Colleen Mg [facility] Start: 08-07-2022 End: 08-07-2022 ambulatory Colleen Mg Other [facility] Other Start: 08-07-2022 Telephone encounter Colleen Mg [facility] Start: 05-08-2022 End: 05-08-2022 ambulatory Colleen Mg Other [facility] Other Start: 05-08-2022 Telephone encounter Colleen Mg [facility] Start: 04-20-2022 End: 04-20-2022 ambulatory Colleen Mg Other [facility] Other Start: 04-20-2022 Telephone encounter Colleen Mg [facility] Start: 03-10-2022 End: 03-10-2022 ambulatory Colleen Mg Other [facility] Other Start: 03-10-2022 Telephone encounter Colleen Mg [facility] Start: 03-08-2022 End: 03-08-2022 ambulatory Colleen Mg Other [facility] Other Start: 03-08-2022 Telephone encounter Colleen Mg [facility] Start: 03-07-2022 End: 03-08-[address] COLLEEN MG Facility:[facility] Start: 03-04-2022 End: 03-05-[address] COLLEEN MG Facility:[facility] Start: 02-28-2022 End: 02-28-2022 ambulatory Colleen Mg Other [facility] Other Start: 02-28-2022 Telephone encounter Colleen Mg [facility] Start: 02-23-2022 End: 02-23-2022 ambulatory Colleen Mg Other [facility] Other Start: 02-23-2022 Encounter for genera l adult medical examination without abnormal findings Colleen gM [facility] Start: 02-23-2022 Periodic preventive med est patient 40-64yrs Colleen Saurav [facility] Start: 01-24-2022 End: 01-24-[address] COLLEEN MG Facility:[facility] Start: 01-24-2022 Adult health examination Meli Mg Other [facility] Other Start: 08-04-2021 End: 08-05-[address] COLLEEN MG Facility:[facility] Procedures Date Procedure Procedure Detail Performing Clinician Start: 03-04-2024 Radex foot complete minimum 3 views Gerard Seals DPM Work Phone: Start: 08-06-2018 Screening mammography M jelani Mg Other Start: 02-04-2018 Screening for malign ant neoplasm of colon Colleen Mg Other Start: 02-04-2018 Viral screening Colleen Saurav Other Start: 09-25-2016 Mammography Gerard feng DPM Work Phone: Colonoscopy Khalif NILL Laparoscopy Khalif NILL Lysis of adhesions Khalif Bahena ILL Screening for malign ant neoplasm of breast Colleen Mg Other Tympanostomy Khalif NILL Plan of Treatment Date Care Activity Detail Author Start: 04-08-2025 Screening for malign ant neoplasm of colon [facility] Start: 09-16-2024 Patient referral [facility] Work Phone: Start: 04-01-2024 End: 04-01-2024 Patient encounter procedure 04/01/2024 4:15 PM EST Office Visit [facility] [address] [place] [phone] Gerard Seals, DPM [address] [place], [place] [phone] [facility] Start: 03-04-2024 End: 03-04-2024 Patient encounter procedure 03/04/2024 3:30 PM EST Office Visit [facility] [address] [place] [phone] Gerard Seals, DPM [address] [place], [place] [id number] Arrived [facility] Comment on above: Arrived Start: 11-29-2023 Patient referral [facility] Work Phone: Start: 10-21-2023 Influenza vaccination Influenz a Vaccine (#1) [facility] Start: 09-25-2017 Screening for malign ant neoplasm of breast Mammogram [facility] Start: 2002 Screening for malign ant neoplasm of breast Mammogram [facility] Start: 1992 Screening for malign ant neoplasm of cervix [facility] Start: 11-01-1983 Screening for malign ant neoplasm of cervix Pap Smear [facility] Start: 1962 Screening for malign ant neoplasm of colon [facility] DXA Skeletal system.axial Views for bone density [facility] MG Breast - bilatera l Screening [facility] Patient referral [facility] Work Phone: US Chest [facility] US Thyroid gland [facility] XR Shoulder - bilate ral Views [facility] XR Shoulder - left Views [facility] Immunizations Immunization Date Immunization Notes Care Provider Fa macarena 07-14-2020 SARS-CoV-2 (COVID-19 ) Ad26 vaccine, recombinant Khalif MUKHERJEEL [facility] Comment on above: Result Comment: 2023: --SELECT TARGET POPULATION/OCCUPATION-- 02-17-2019 zoster vaccine, live Colleen Mg Other [facility] 09-14-2018 zoster vaccine, live Colleen Mg Other [facility] 08-11-2017 tetanus toxoid, reduced diphtheria toxoid, and acellular pertussis vaccine, adsorbed Colleen Mg Other [facility] Other 08-11-2017 tetanus and diphther ia toxoids, adsorbed, preservative free, for adult use (5 Lf of tetanus toxoid and 2 Lf of diphtheria toxoid) [facility] Payers Date Payer Category Payer Private Health Insurance [employer] [id number] 1962 Unknown [id number] 1962 Unknown [id number] [id number] 1962 Unknown [id number] [id number] 1962 Unknown [id number] [id number] 1962 Unknown [id number] [id number] 1962 Unknown [id number] [id number] 1962 Unknown [id number] [id number] 1962 Unknown [id number] [id number] 1962 Unknown [id number] [id number] 1959 Unknown [id number] 1959 Unknown [id number] Social History Date Type Detail Facility Unknown if ever smoked [facility] Other Sex Assigned At [facility] Start: 05-14-2023 End: 03-04-2024 Tobacco smoking status NHIS Never smoked tobacco (finding) [facility] Start: 1960 Sex Assigned At Female [facility] Tobacco smoking status Never [facility] Tobacco smoking stat [facility] Tobacco smoking consumption unknown [facility] Start: 03-01-2024 Gender identity Identifies as female gender (finding) [facility] Start: 03-01-2024 Sexual orientation Heterosexual (finding) [facility] Start: 03-04-2024 Tobacco use and exposure Smokeless tobacco non-user [facility] Start: 03-04-2024 Alcoholic beverage intake Ex-drinker (finding) [facility] Start: 03-04-2024 Alcoholic beverage intake [facility] Start: 07-11-2024 Sex Female (finding) [facility] Functional Status Date Assessment Result Facility 12-26-2023 Functional Status N/A [facility] Clinical Notes 08-05-2021 to 09-15-2024 Note Date & Type Note Facility 09-15-2024 Evaluation note Diagnosis Onset Date Resolution Left shoulder pain acute August 202024 3:17pm Mass in neck acute September 15, 2 025 3:17pm Mass of subcutaneous tissue of back acute September 15, 2024 3:17pm Bicipital tendinitis, right shoulder acute October 16 10:43am Primary osteoarthritis of shoulders, bilateral acute September 202024 10:43am Rotator cuff syndrome of right shoulder acute October 16 10:43am [facility] Work Phone: 1(314) 705-459205-23-2025 Evaluation note* Diagnosis Onset Date Resolution Status Admit Date Left shoulder pain acute July 112024 11:01am Mass in neck acute September 15, 2 025 3:17pm Mass of subcutaneous tissue of back acute September 15, 2024 3:17pm [facility] Work Phone: 1(567) 354-267401-14-2025 History of Present illness Narrative* Gerard W Chan, DPM - 03/04/2024 3:30 PM EST Images from [...] understanding. Gerard Seals DPM [facility] [id number] NoteGeneral Surgery Office/Clinic Note Chief Complaint consultation [...] Ad26 vaccine 07/14/2020 Recorded 2023-12-11: --SELECT TARGET POPULATION/OCCUPATION--[facility]Result Comment: Electronically Signed By: JESSIE NAYLOR, Khalif Aguilar\Date and Time Signed: 12/26/23 15:42 [id number] Hospital Discharge instructionsAmbulatory Orders* Referral to General Surgery Time Frame: 11/29/23, Location: None Selected [facility] Work Phone: 1(735) 920-639511-01-2023 Evaluation note* Encounter Date Diagnosis Assessment Notes [...] verbalizes understanding and agreement with treatment plan. [facility] Other 09-05-2023 Evaluation note* Encounter Date Diagnosis [...] plan. Also discussed adequate hydration and rest. [facility] Other 07-03-2023 Evaluation note* Encounter Date Diagnosis Assessment Notes Treatment Notes Treatment Clinical Notes Aug, Trochanteric bursitis, left hip (ICD-10 - M70.62) Offered PT. Short course of steroids prescribed. Copied and gave Esther home exercises. Aug, Migraine with aura and without status migrainosus, not intractable (ICD-10 - G43.109) Chronic problem. Will watch for FMLA Forms. [facility] Other 06-19-2023 Evaluation note* Encounter Date Diagnosis Assessment Notes Treatment Notes Treatment Clinical Notes Jul, Mild intermittent asthma without complication (ICD-10 - J45.20) [facility] Other 03-20-2023 Evaluation note* Encounter Date Diagnosis Assessment Notes Treatment Notes Treatment Clinical Notes Apr, Mild intermittent asthma without complication (ICD-10 - J45.20) [facility] Other 01-10-2023 Evaluation note* Encounter Date Diagnosis Assessment Notes Treatment Notes Treatment Clinical Notes Feb, Mild intermittent asthma without complication (ICD-10 - J45.20) [facility] Other 01-05-2023 Evaluation note* Encounter Date Diagnosis [...] intermittent asthma without complication (ICD-10 - J45.20) [facility] Other 06-17-2022 NotePROCEDURE: XR HIP LT 2 3V W PELVIS HISTORY: Pain of left hip joint , chronic COMPARISON: None. FINDINGS: BONES:No fracture, acute abnormality, or significant arthropathy. SOFT TISSUES:No visible soft tissue swelling. EFFUSION:None visible. OTHER: Negative. IMPRESSION: 1. Normal appearance of the hip joints. Electronically authenticated by: DODIE TENA Date: 2021-08-05 08:33[facility] note No data available for this section [facility] Evaluation noteNo InformationNort Luxim Other Evaluation noteNo assessment information available [facility] Work Phone: Evaluation note* Diagnosis Onset Date Resolution Status Osteoporosis acute Screening for colon cancer a cute Screening mammogram for breast cancer acute [facility] Work Phone: Evaluation note* Diagnosis Onset Date Resolution Status Migraines acute Osteoporosis acute Screening for colon cancer a cute Screening mammogram for breast cancer acute [facility] Work Phone: Evaluation note* Diagnosis Metatarsus adductus of right foot- Primary Hallux valgus with bunions of right foot Primary osteoarthritis of right foot Capsulitis of foot, right Neuritis of right foot Right foot pain Pain in soft tissues of limb [facility] Diagnosis Onset Date Resolution Status Admit Date Left shoulder pain acute July 112024 11:01am [facility] Work Phone: History general Narrative - Reported* Type Description Date Medical History Osteoporosis Medical History migraines Medical History asthma Medical History mammogram - 2019 Medical History colonoscopy - 2018 Medical History postmenopausal osteoporosis Surgical History endometriosis Surgical History CV diagnostics Surgical History PE tubes [facility] Other History general Narrative - Reported* Type Description Date Medical History Osteoporosis Medical History migraines Medical History asthma Medical History mammogram - 2019 Medical History colonoscopy - 2018 Medical History postmenopausal osteoporosis Surgical History endometriosis Surgical History CV diagnostics Surgical History PE tubes Hospitalization History see surshiracal hx [facility] Other Hospital Discharge instructions No data available for this section [facility] [employer] [facility] note No data available for this section [facility] Reason for referral (narrative)No reason for referral [facility] Work [facility]: Summary Purpose Family History Relationship [...] Date/ Time Advance Directives No May 13 9:35am Chief Complaint and Reason for Visit [...] tissue of back September 15, 2024 3:17pm Chief Complaint Admit Date Lump on neck September 15, 2024 3:17 pm [facility] DR COLLEEN MG AMARA SHOULDER PAIN WX October 16, 2024 10:43am Reason for Visit Admit Date Left shoulder pain September 15, 2024 3:17 pm Mass in neck September 15, 2024 3:17 pm Mass of subcutaneous tissue of back September 15, 2024 3:17pm Bicipital tendinitis, right shoulder Aug ust 2024 10:43am Primary osteoarthritis of shoulders, amara ateral October 16, 2024 10:43am Rotator cuff syndrome of right shoulder October 16, 2024 10:43am Additional Source Comments INFORMATION SOURCE (unrecogn ized section and content) DATE CREATED AUTHOR 03/08/2022 [facility] DATE CREATED AUTHOR AUTHOR'S ORGANIZ ATION 02/13/2024 [facility] DATE CREATED AUTHOR AUTHOR'S ORGANIZ ATION 03/07/2024 [facility] EPIC REASON FOR VISIT (unrecogniz [...] September 15, 2024 End: September 15, 2024 Team Status: Inactive Member Role Status Dates Colleen Mg MD Primary Care Provider Active Start: October 16, 2024 End: October 16, 2024 Brad Soriano DO Attending Provider Active St art: October 16, 2024 End: October 16, 2024 Goals (unrecognized section and content) Goals [...] BE BASED ON THE PRIMARY CLINICAL RECORDS. [facility] [employer] provides no warranty or guarantee of the accuracy or completeness of information in this document.
== END 2024-11-12 16:04 | disposition home or self-care (01) ==
LOC: US 16:03
PROVIDERS: PCP Family Medicine; Visit Provider Family Medicine
DX: R22.1 Localized swelling, mass and lump, neck (principal)
CPT/HCPCS: 76536

== ENCOUNTER 2024-11-21 07:30 | Outpatient (OUT) | payer OTHER, SELFPAY ==
--- OUTSIDE RECORDS SUMMARY | 2024-11-21 07:33 | XMS_ITS | CCD ---
Author Organization [facility] Care Team Providers Care Access Services Representative Name Role Phone SAURAV, DR COLLEEN Duran [...] Unavailable Colleen Mg Unavailable Jeannine Green Unavailable [phone] COLLEEN MG Primary Care Physician Khalif ROMAN Attending Unavailable Khalif ROMAN Attending Unavailable Unavailable Primary Care Provider UnavailGERARD Maher Attending Unavailable GERARD SEALS Referring Unavailable Colleen Mg MD Primary Care Provider [phone] Colleen Mg MD Attending Provider [phone] Colleen Mg MD Primary Care Provider Colleen Mg MD Attending Provider [phone] Brad Soriano DO Attending Provider Allergies Allergy Classification Reported Allergen(s) Allergy Type Date of Onset Reaction(s) Facility (8 sources) Penicillins Drug allergy (disorder) 02-14-20 13 Hives [facility] (1 source) Sulfonamides (Antibiotic) Drug allergy (disorder) 02-14-20 13 [facility] (1 source) Darvocet-N 100 Drug allergy (disorder) 02-14-20 13 [facility] (11 sources) Acetaminophen / Propoxyphene Drug Allergy Unknown [facility] Other (18 sources) Penicillin G Drug Allergy 05-14-19 24 [facility] (11 sources) Sulf-10 Drug allergy sensativity Heliatek Other (5 sources) Penicillin; Translations: [penicillin] Drug Allergy Weal (disorder) [facility] (3 sources) Propoxyphene Drug Allergy 05-27-19 15 Unknown [facility] Other (3 sources) Substance with penicillin structure and antibacterial mechanism of action (substance) Drug allergy Unknown Heliatek Other (2 sources) patient allergy list reviewed by nurse or physicia Propensity to adverse reactions 08-07-19 Comment:Done Heliatek Other (5 sources) Substance with sulfonamide structure and antibacterial mechanism of action (substance) Drug allergy 03-04-19 25 Unknown Heliatek Other (2 sources) Allergies Reconciled Propensity to adverse reactions Unknown Heliatek Other (3 sources) Darvocet A500 *ANALGESICS - OPIOID* Propensity to adverse reactions Unknown Heliatek Other (7 sources) Acetaminophen Drug Allergy 05-14-19 24 [facility] (10 sources) Propoxyphene; Translations: [propoxyphene] Drug Allergy 05-14-19 24 [facility] (7 sources) Sulfonamides (Antibiotic) Allergy to substance 05-14-19 24 [facility] (7 sources) Darvocet A500 *ANALGESICS - OP Allergy to substance 05-14-19 24 [facility] Comment on above: Free Text Allergy: D arvocet A500 *ANALGESICS - OPIOID* (1 source) acetaminophen / propoxyphene; Translations: [acetaminophen-pr opoxyphene] Drug Allergy Weal (disorder) [facility] Comment on above: darvocet generic (2 sources) Sulfonamides (Antibiotic); Translations: [sulfa drugs] Drug allergy Weal (disorder) [facility] (1 source) Azithromycin; Translations: [azithromycin] Drug Allergy [facility]ository (1 source) Darvocet-N 50; Translations: [Darvocet-N 50] Propensity to adverse reactions (disorder) [facility]ository (2 sources) Penicillins Drug Allergy 03-04-19 [facility] (2 sources) Other Propensity to adverse reactions 03-04-19 [facility] Medications Current Medications Medication Drug Class(es) Dates Sig (Normalized) Sig (Original) acetaminophen 250 mg / aspirin 250 mg / caffeine 65 mg oral tablet (18 sources) Platelet Aggregation Inhibitor, Nonsteroidal Anti-inflammatory Drug, Central Nervous System Stimulant, Methylxanthine Start: 05-14-2023 take 1 tablet by mouth every four to six hours as needed take 2 tablets by mouth every si x hours Excedrin Extra Strength 250-250-65 MG 2 tablets as needed Orally every 6 hrs Active [id number] 200 actuat albuterol 0.09 mg/actuat metered dose inhaler (6 sources) beta2-Adrenergic Agonist Start: 12-20-2023 take 1 [...] 12:00am alendronic acid 70 mg oral tablet (19 sources) Bisphosphonate Start: 05-14-2023 doxycycline hyclate 100 mg oral tablet (2 sources) Tetracycline-class Drug Start: 09-22-2024 take 1 tablet [...] Saurav Duran meloxicam 15 mg oral tablet (3 sources) Nonsteroidal Anti-inflammatory Drug Start: 09-15-2024 take [...] Active Start: 12-11-2023 take 1 tablet by [facility] once as needed for headache Imitrex 25 mg Tab 25 mg = 1 tab(s), Oral, Once, PRN Migraine headache, Refills(s) 0 Start Date: 12/11/23 Status: Ordered Start: 05-14-2023 take 8 tablets by [facility] every twenty-four hours as needed Imitrex Active Completed/Discontinued Medications Medication Drug Class(es) Dates Sig (Normalized) Sig (Original) azithromycin 250 mg oral tablet (15 sources) Macrolide Antimicrobial Start: 12-20-2023 End: 07-11-2024 [...] Oct, Active methylPREDNISolone 4 mg oral tablet (19 sources) Corticosteroid Start: 07-11-2024 End: 09-15-2024 take [...] Chronic Chronic obstructive pulmonary disease and bronchiectasis (4 sources) Bronchitis; Translations: [Bronchitis, not specified as acute or chronic] 12-31-2023 Episodic Endometriosis (1 source) Endometriosis (clinical) 12-11-2023 Chronic Fever of unknown origin (6 sources) Fever, unspecified; Translations: [Fever] Onset: 01-24-2022 Episodic Genitourinary symptoms and ill-defined conditions (2 sources) Dysuria; Translations: [Dysuria] Episodic Headache; including migraine (14 sources) Migraine with aura; Translations: [Migraine with aura, not intractable, without status migrainosus] Chronic Influenza (13 sources) Influenza due to Influenza B virus; Translations: [Influenza B] Episodic Lymphadenitis (1 source) Head and neck lymphadenopathy; Translations: [Generalized enlarged lymph nodes] 11-14-2024 Episodic Osteoarthritis (6 sources) Osteoarthritis of right foot; Translations: [Primary osteoarthritis, right ankle and foot] 03-04-2024 Chronic Osteoporosis (11 sources) Primary osteoporosis; Translations: [Age-related osteoporosis without [...] foot] 03-04-2024 Episodic Other connective tissue disease (4 sources) Right rotator cuff syndrome; Translations: [Unspecified rotator cuff tear or rupture of right shoulder, not specified as traumatic] 10-16-2024 Episodic Other connective tissue disease (4 sources) Biceps tendinitis; Translations: [Bicipital tendinitis, right shoulder] 10-16-2024 Episodic Other nervous system disorders (2 sources) Right foot neuritis; Translations: [Unspecified mononeuropathy of right lower limb] 03-04-2024 Chronic Other non-traumatic joint disorders (2 sources) Arthralgia of the pelvic region and thigh; Translations: [Pain in left hip] Episodic Other non-traumatic joint disorders (8 sources) Pain in left shoulder; Translations: [Left shoulder pain] 07-11-2024 Episodic Other non-traumatic joint disorders (2 sources) Pain in right shoulder; Translations: [Bilateral shoulder pain] 10-15-2024 Episodic Other nutritional; endocrine; and metabolic disorders (5 sources) Body mass index 30+ - obesity; Translations: [Body mass index (BMI) 30.0-30.9, adult] Onset: 01-15-2017 12-26-2023 Chronic Other nutritional; endocrine; and metabolic disorders (1 source) Obesity caused by energy imbalance 12-26-2023 Chronic Other screening for suspected conditions (not mental disorders or infectious disease) (19 sources) Encounter for screening mammogram for malignant neoplasm of breast; Translations: [Encounter for screening for malignant neoplasm of colon] Onset: 12-26-2023 Episodic Other skin disorders (6 sources) Mass of subcutaneous tissue of back; Translations: [Localized swelling, mass and lump, trunk] 09-15-2024 Episodic Other skin disorders (6 sources) Mass of neck; Translations: [Localized swelling, [...] 03-09-2015 Episodic Otitis media and related conditions (13 sources) Non-suppurative otitis media; Translations: [Unspecified nonsuppurative [...] Translations: [M25.512 - Pain in left shoulder] Unclassified (1 source) R22.1 - Localized swelling, mass and lump, neck,R59.1 - Generalized enlarged lymph nodes Past or Other Problems Problem Classification Problem [...] 1st MTPJ, 2nd and 3rd tarsometatarsal joints. [facility] [email or web address] Radiology Study observation (narrative) [facility] [employer] Reminderson 02-07-2024 Reminders Reminders - From: Yeny Greene LPN To: N - Clinical; Sent: 02/07/2024 13:07:28 EST Show up: 01/06/2034 07:00:00 EST Subject: colonoscopy recall Due Date/Time: 02/05/2034 07:00:00 EST Reminder/Recall Patient due for screening colonoscopy 02/05/2034. Normal [facility] Ambulatory Visit Summaryon 1 02-24-2023 Ambulatory Visit Summary Ambulatory Visit Summary ESTHER BOUDREAUX :1960 Visit Date:12/26/2023 Ambulatory Visit Instructions Your Diagnosis Screening for malignant neoplasm of colon Your Care Team Attending Physician - JESSIE NAYLOR, Khalif Pace Primary Care Physician - SAURAV NAYLOR, COLLEEN This Is Your Medications List Contact prescribing [...] you for choosing us for your care. [facility] MG MAMM SCREEN 3D AMARA CADon 03-07-2022 MG MAMM SCREEN 3D AMARA CAD Patient: ESTHER BOUDREAUX Exam Date: 03/07/2022 : 1960 Gender:F Ordering : DR COLLEEN MG M.D. Admission #: [id number] Family : Order #: [id number] CLICK HERE TO VIEW EXAM RADIOLOGY REPORT [...] Treatments None Family Cancers None LOCATION: [facility] BREAST COMPOSITION: Scattered areas fibroglandular density. [...] Stroud MD on 03/08/2022 at 07:09 Normal [facility] XR CHEST 2 Von 03-07-2022 [...] SMITHA FOURNIER Date: 2022-03-07 17:04 Normal [facility] CBC AUTO DIFFon 03-04-2022 BASO # 0.0 103/ul Normal 0.0-0.1 [facility] Comment on above: Performed By: #### C BC #### [facility] [address] [place] [address] Dr. Nelida Nixon Basophils/100 WBC (Bld) 0.6 % Normal 0.2-2.0 [facility] Comment on above: Performed By: #### C BC #### [facility] [address] [place] [address] Dr. Nelida Nixon EO # 0.1 103/ul Normal 0.0-0.7 [facility] Comment on above: Performed By: #### C BC #### [facility] [address] [place] [address] Dr. Nelida Nixon Eosinophils/100 WBC (Bld) 1.8 % Normal 0.9-7.0 [facility] Comment on above: Performed By: #### C BC #### [facility] [address] [place] [address] Dr. Nelida Nixon Erythrocyte distribution width (RBC) [Ratio] 13.9 % Normal 11.0-15.0 [facility] Comment on above: Performed By: #### C BC #### [facility] [address] [place] [address] Dr. Nelida Nixon Hematocrit (Bld) [Volume fraction] 38.7 % Normal 36.0-48.0 [facility] Comment on above: Performed By: #### C BC #### [facility] [address] [place] [address] Dr. Nelida Nixon Hemoglobin (Bld) [Mass/Vol] 13.2 g/dL Normal 12.0-16.0 [facility] Comment on above: Performed By: #### C BC #### [facility] [address] [place] [address] Dr. Nelida Nixon IG # 0.03 10e3/ul Normal 0.00-0.03 [facility] Comment on above: Performed By: #### C BC #### [facility] [address] [place] [address] Dr. Nelida Nixon IG % 0.4 % Normal 0.0-0.5 [facility] Comment on above: Performed By: #### C BC #### [facility] [address] [place] [address] Dr. Nelida Nixon LYMPH # 2.2 103/ul Normal 1.2-3.8 [facility] Comment on above: Performed By: #### C BC #### [facility] [address] [place] [address] Dr. Nelida Nixon Lymphocytes/100 WBC (Bld) 30.4 % Normal 20.5-60.0 [facility] Comment on above: Performed By: #### C BC #### [facility] [address] [place] [address] Dr. Nelida Nixon MANUAL DIFF REQ NO Normal [facility] Comment on above: Performed By: #### C BC #### [facility] [address] [place] [address] Dr. Nelida Nixon MCH (RBC) [Entitic mass] 31.4 pg Normal 26.7-34.0 [facility] Comment on above: Performed By: #### C BC #### [facility] [address] [address] [address] Nelida Nixon MCHC (RBC) [Mass/Vol] 34.1 g/dL Normal 29.9-35.2 [facility] Comment on above: Performed By: #### C BC #### [facility] [address] [address] [address] Nelida Nixon MCV (RBC) [Entitic vol] 91.9 fL Normal 81.0-99.0 [facility] Comment on above: Performed By: #### C BC #### [facility] [address] [place] [address] Dr. Nelida Nixon MONO # 0.6 103/ul Normal 0.3-0.8 [facility] Comment on above: Performed By: #### C BC #### [facility] [address] [place] [address] Dr. Nelida Nixon Monocytes/100 WBC (Bld) 8.1 % Normal 1.7-12.0 [facility] Comment on above: Performed By: #### C BC #### [facility] [address] [place] [address] Dr. Nelida Nixon NEUT # 4.2 103/ul Normal 1.4-6.5 [facility] Comment on above: Performed By: #### C BC #### [facility] [address] [place] [address] Dr. Nelida Nixon Neutrophils/100 WBC (Bld) 58.7 % Normal 43.0-75.0 [facility] Comment on above: Performed By: #### C BC #### [facility] [address] [place] [address] Dr. Nelida Nixon Platelet mean volume (Bld) [Entitic vol] 8.8 fL Critically low 9.5-13.5 [facility] Comment on above: Performed By: #### C BC #### [facility] [address] [place] [address] Dr. Nelida Nixon PLT 199 103/ul Normal 150-450 [facility] Comment on above: Performed By: #### C BC #### [facility] [address] [place] [address] Dr. Nelida Nixon RBC 4.21 106/ul Normal 4.20-5.40 [facility] Comment on above: Performed By: #### C BC #### [facility] [address] [place] [address] Dr. Nelida Nixon WBC 7.2 103/ul Normal 4.0-11.0 [facility] Comment on above: Performed By: #### C BC #### [facility] [address] [place] [address] Dr. Nelida Nixon GLYCOHEMOGLOBIN A1Con 2022 ADA RECOMMENDATION SEE BELOW Normal [facility] Comment on above: Result Comment: ADA RECOMMENDED LIMIT 4.0 - 6.0 ADA THERAPEUTIC TARGET < 7.0 ACTION SUGGESTED > 7.0 Performed By: #### A 1C #### [facility] [address] [place] [address] Dr. Nelida Nixon Glucose [Mass/Vol] 117 mg/dL Normal [facility] Comment on above: Performed By: #### A 1C #### [facility] [address] [place] [address] Dr. Nelida Nixon HbA1c (Bld) [Mass fraction] 5.7 % Normal 4.5-6.2 [facility] Comment on above: Performed By: #### A 1C #### [facility] [address] [place] [address] Dr. Nelida Nixon LIPID PROFILEon 03-04-2022 CHOL-HDL RATIO NORM SEE BELOW Normal [facility] Comment on above: Result Comment: 3.3 - 4.4 LOW RISK 4.4 - 7.1 AVERAGE RISK 7.1 - 11.0 MODERATE RISK >11.0 HIGH RISK Performed By: #### L IPID, TSH, CMP #### [facility] [address] [place] [address] Dr. Nelida Nixon Cholesterol [Mass/Vol] 219 mg/dL Critically high <=200 [facility] Comment on above: Performed By: #### L IPID, TSH, CMP #### [facility] [address] [address] [address] Nelida Nixon Cholesterol in HDL [Mass/Vol] 62 mg/dL Critically high 40-60 [facility] Comment on above: Performed By: #### L IPID, TSH, CMP #### [facility] [address] [address] [address] Nelida Nixon Cholesterol in LDL [Mass/Vol] 118.0 mg/dL Normal [facility] Comment on above: Performed By: #### L IPID, TSH, CMP #### [facility] [address] [address] [address] Nelida Nixon Cholesterol.total/Ch olesterol in HDL [Mass ratio] 3.5 {ratio} Normal [facility] Comment on above: Performed By: #### L IPID, TSH, CMP #### [facility] [address] [address] [address] Nelida Nixon HDL NORMAL > or = 60 mg/dl - LOW CARDIOVASCULAR RISK <40 mg/dl - HIGH CARDIOVASCULAR RISK Normal [facility] Comment on above: Performed By: #### L IPID, TSH, CMP #### [facility] [address] [address] [address] Nelida Nioxn LDL CALC NORMAL SEE BELOW Normal [facility] Comment on above: Result Comment: <100 mg/dl OPTIMAL 100 - 129 mg/dl NEAR OR ABOVE OPTIMAL 130 - 159 mg/dl BORDERLINE HIGH 160 - 189 mg/dl HIGH >190 mg/dl VERY HIGH Performed By: #### L IPID, TSH, CMP #### [facility] [address] [address] [address] Nelida Nixon Triglyceride [Mass/Vol] 195 mg/dL Critically high <=150 [facility] Comment on above: Performed By: #### L IPID, TSH, CMP #### [facility] [address] [place] [address] Dr. Nelida Nixon VLDL CALC 39.0 mg/dL Normal [facility] Comment on above: Performed By: #### L IPID, TSH, CMP #### [facility] [address] [address] [address] Nelida Nixon PROF 14(COMP METB)on 023 Albumin [Mass/Vol] 4.2 g/dL Normal 3.4-5.0 [facility] Comment on above: Performed By: #### L IPID, TSH, CMP #### [facility] [address] [address] [address] Nelida Nixon Albumin/Globulin [Mass ratio] 1.2 {ratio} Normal [facility] Comment on above: Performed By: #### L IPID, TSH, CMP #### [facility] [address] [address] [address] Nelida Nixon ALP [Catalytic activity/Vol] 60 U/L Normal 46-116 [facility] Comment on above: Performed By: #### L IPID, TSH, CMP #### [facility] [address] [place] [address] Dr. Nelida Nixon ALT [Catalytic activity/Vol] 78 U/L Critically high 14-59 [facility] Comment on above: Performed By: #### L IPID, TSH, CMP #### [facility] [address] [address] [address] Nelida Nixon Anion gap [Moles/Vol] 9.7 mmol/L Normal [facility] Comment on above: Performed By: #### L IPID, TSH, CMP #### [facility] [address] [address] [address] Nelida Nixon AST [Catalytic activity/Vol] 34 U/L Normal 15-37 [facility] Comment on above: Performed By: #### L IPID, TSH, CMP #### [facility] [address] [address] [address] Nelida Nixon Bilirubin [Mass/Vol] 0.4 mg/dL Normal 0.2-1.0 [facility] Comment on above: Performed By: #### L IPID, TSH, CMP #### [facility] [address] [address] [address] Nelida Nixon Calcium [Mass/Vol] 9.6 mg/dL Normal 8.5-10.1 [facility] Comment on above: Performed By: #### L IPID, TSH, CMP #### [facility] [address] [address] [address] Nelida Nixon Chloride [Moles/Vol] 105 mmol/L Normal 98-107 [facility] Comment on above: Performed By: #### L IPID, TSH, CMP #### [facility] [address] [address] [address] Nelida Nixon CO2 [Moles/Vol] 32.2 mmol/L Critically high 21.0-32.0 [facility] Comment on above: Performed By: #### L IPID, TSH, CMP #### [facility] [address] [place] [address] Dr. Nelida Nixon Creatinine [Mass/Vol] 0.79 mg/dL Normal 0.55-1.02 [facility] Comment on above: Performed By: #### L IPID, TSH, CMP #### [facility] [address] [place] [address] Dr. Nelida Nixon EGFR-AF [place] >60 Normal >=60 [facility] Comment on above: Performed By: #### L IPID, TSH, CMP #### [facility] [address] [place] [address] Dr. Nelida Nixon EGFR-NON AF [place] >60 Normal >=60 [facility] Comment on above: Performed By: #### L IPID, TSH, CMP #### [facility] [address] [place] [address] Dr. Nelida Nixon Globulin (S) [Mass/Vol] 3.6 g/dL Normal [facility] Comment on above: Performed By: #### L IPID, TSH, CMP #### [facility] [address] [place] [address] Dr. Nelida Nixon Glucose [Mass/Vol] 95 mg/dL Normal 74-106 [facility] Comment on above: Performed By: #### L IPID, TSH, CMP #### [facility] [address] [place] [address] Dr. Nelida Nixon Potassium [Moles/Vol] 3.9 mmol/L Normal 3.5-5.1 [facility] Comment on above: Performed By: #### L IPID, TSH, CMP #### [facility] [address] [place] [address] Dr. Nelida Nixon Protein [Mass/Vol] 7.8 g/dL Normal 6.4-8.2 [facility] Comment on above: Performed By: #### L IPID, TSH, CMP #### [facility] [address] [place] [address] Dr. Nelida Nixon Sodium [Moles/Vol] 143 mmol/L Normal 136-145 [facility] Comment on above: Performed By: #### L IPID, TSH, CMP #### [facility] [address] [place] [address] Dr. Nelida Nixon Urea nitrogen [Mass/Vol] 16.0 mg/dL Normal 7.0-18.0 [facility] Comment on above: Performed By: #### L IPID, TSH, CMP #### [facility] [address] [place] [address] Dr. Nelida Nixon Urea nitrogen/Creatinine [Mass ratio] 20.3 mg/mg Normal [facility] Comment on above: Performed By: #### L IPID, TSH, CMP #### [facility] [address] [place] [address] Dr. Nelida Nixon TSHon 03-04-2022 TSH 1.200 uIU/mL Normal 0.358-3.740 [facility] Comment on above: Performed By: #### L IPID, TSH, CMP #### [facility] [address] [place] [address] Dr. Nelida Nixon INFLUENZA A AND B AGon 01-24 INFLUBNEGH SEE BELOW Normal [facility] Comment on above: Result Comment: Nega tive for Flu B protein antigen. Infection due to Flu B cannot be ruled out. Flu B antigen in the sample may be below the detection limit of the test. Performed By: #### I NFLUAB #### [facility] [address] [place] [address] Dr. Nelida Nixon INFLUENZA A AG Positive Abnormal NEGATIVE SEE COMMENT [facility] Comment on above: Performed By: #### I NFLUAB #### [facility] [address] [place], [place] [address] Dr. Nelida Nixon INFLUENZA B AG Negative Normal NEGATIVE SEE COMMENT [facility] Comment on above: Performed By: #### I NFLUAB #### [facility] [address] [place], [place] [address] Dr. Nelida Nixon INFLUPOSH SEE BELOW Normal [facility] Comment on above: Result Comment: NOTE : Live attenuated influenzae vaccine viruses can cause a positive result for a rapid influenza diagnostic test if administered up to 7 days prior to rapid testing. Performed By: #### I NFLUAB #### [facility] [address], [place] [address] Dr. Nelida Nixon INTERNAL CONTROLS Within Normal Limits Normal Wi thin Normal Limits [facility] Comment on above: Performed By: #### I NFLUAB #### [facility] [id number] Nelida Nixon Vital Signs Date Time Vital Sign Value Performing Clinician Facility 09-15-2024 15:30-0400 Body height 158.75 cm Colleen Mg MD Work Phone: [facility] 09-15-2024 15:30-0400 Body mass index (BMI) [Ratio] 31.3 kg/m2 Colleen Mg MD Work Phone: [facility] 09-15-2024 15:30-0400 Body weight 78.92 kg Colleen Mg MD Work Phone: [facility] 09-15-2024 15:30-0400 Diastolic blood pressure 83 mm[Hg] Colleen Mg MD Work Phone: [facility] 09-15-2024 15:30-0400 Heart rate 85 /min Colleen Mg MD Work Phone: [facility] 09-15-2024 15:30-0400 Systolic blood pressure 130 mm[Hg] Colleen Mg MD Work Phone: [facility] 07-11-2024 11:09-0400 Body height 158.75 cm [facility] 07-11-2024 11:09-0400 Body mass index (BMI) [Ratio] 31.1 kg/m2 [facility] 07-11-2024 11:09-0400 Body weight 78.47 kg [facility] 07-11-2024 11:09-0400 Diastolic blood pressure 81 mm[Hg] [facility] 07-11-2024 11:09-0400 Heart rate 77 /min [facility] 07-11-2024 11:09-0400 Systolic blood pressure 132 mm[Hg] [facility] 03-04-2024 15:19-0500 Body height 160 cm Gerard Seals DPM Work Phone: [facility] 03-04-2024 15:19-0500 Body mass index (BMI) [Ratio] 29.76 kg/m2 Gerard Seals DPM Work Phone: [facility] 03-04-2024 15:19-0500 Body weight 76.2 kg Gerard Seals DPM Work Phone: [facility] 12-26-2023 15:22-0500 Blood Pressure Location Khalif MUKHERJEEL [facility] 12-26-2023 15:22-0500 Diastolic blood pressure 84 mm[Hg] Khalif MUKHERJEEL [facility] 12-26-2023 15:22-0500 Heart rate 76 /min Khalif NILL [facility] 12-26-2023 15:22-0500 Respiratory rate 16 /min Khalif NILL [facility] 12-26-2023 15:22-0500 Systolic blood pressure 124 mm[Hg] Khalif NILL [facility] 12-20-2023 15:28-0400 Body height 158.75 cm [facility] 12-20-2023 15:28-0400 Body mass index (BMI) [Ratio] 31.8 kg/m2 [facility] 12-20-2023 15:28-0400 Body weight 80.28 kg [facility] 12-20-2023 15:28-0400 Diastolic blood pressure 78 mm[Hg] [facility] 12-20-2023 15:28-0400 Heart rate 84 /min [facility] 12-20-2023 15:28-0400 SaO2% (BldA) [Mass fraction] 97 % [facility] 12-20-2023 15:28-0400 Systolic blood pressure 126 mm[Hg] [facility] 11-29-2023 11:35-0400 Body height 158.75 cm [facility] 11-29-2023 11:35-0400 Body mass index (BMI) [Ratio] 31.4 kg/m2 [facility] 11-29-2023 11:35-0400 Body weight 79.09 kg [facility] 11-29-2023 11:35-0400 Diastolic blood pressure 72 mm[Hg] [facility] 11-29-2023 11:35-0400 Heart rate 86 /min [facility] 11-29-2023 11:35-0400 Respiratory rate 14 /min [facility] 11-29-2023 11:35-0400 SaO2% (BldA) [Mass fraction] 97 % [facility] 11-29-2023 11:35-0400 Systolic blood pressure 126 mm[Hg] [facility] 05-14-2023 15:41-0400 Body height 158.75 cm [facility] 05-14-2023 15:41-0400 Body mass index (BMI) [Ratio] 32.3 kg/m2 [facility] 05-14-2023 15:41-0400 Body temperature 100.2 [degF] [facility] 05-14-2023 15:41-0400 Body weight 81.64 kg [facility] 05-14-2023 15:41-0400 Diastolic blood pressure 76 mm[Hg] [facility] 05-14-2023 15:41-0400 Heart rate 94 /min [facility] 05-14-2023 15:41-0400 Systolic blood pressure 115 mm[Hg] [facility] 12-20-2022 16:00-0400 Body height 158.75 cm Jeannine Norma Other [facility] Other 12-20-2022 16:00-0400 Body mass index (BMI) [Ratio] 31.89 kg/m2 Jeannine Norma Other [facility] Other 12-20-2022 16:00-0400 Body temperature 98.1 [degF] Jeannine Norma Other [facility] Other 12-20-2022 16:00-0400 Body weight 80.38 kg Jeannine Norma Other [facility] Other 12-20-2022 16:00-0400 Diastolic blood pressure 84 mm[Hg] Jeannine Norma Other [facility] Other 12-20-2022 16:00-0400 SaO2% (BldA) [Mass fraction] 98 % Jeannine Green Other [facility] Other 12-20-2022 16:00-0400 Systolic blood pressure 130 mm[Hg] Jeannine Green Other [facility] Other 08-21-2022 09:00-0400 Body height 158.75 cm Colleen Mg Other [facility] Other 08-21-2022 09:00-0400 Body mass index (BMI) [Ratio] 30.95 kg/m2 Colleen Mg Other [facility] Other 08-21-2022 09:00-0400 Body weight 78.02 kg Colleen Mg Other [facility] Other 08-21-2022 09:00-0400 Diastolic blood pressure 73 mm[Hg] Colleen Mg Other [facility] Other 08-21-2022 09:00-0400 Systolic blood pressure 115 mm[Hg] Colleen gM Other [facility] Other 02-23-2022 16:30-0500 Body height 158.75 cm Colleen Mg Other [facility] Other 02-23-2022 16:30-0500 Body mass index (BMI) [Ratio] 33.11 kg/m2 Colleen Mg Other [facility] Other 02-23-2022 16:30-0500 Body weight 83.46 kg Colleen Mg Other [facility] Other 02-23-2022 16:30-0500 Diastolic blood pressure 62 mm[Hg] Colleen Mg Other [facility] Other 02-23-2022 16:30-0500 SaO2% (BldA) [Mass fraction] 97 % Colleen Mg Other [facility] Other 02-23-2022 16:30-0500 Systolic blood pressure 128 mm[Hg] Colleen Mg Other [facility] Other Encounters Encounter Date Encounter Type Care Provider Facility Start: 11-14-2024 ambulatory Colleen Mg MD Work Phone: [facility] Work Phone: Start: 11-14-2024 Non-patient / Non-visit Colleen rawls MD -[facility] Work Phone: Start: 10-16-2024 End: 10-16-2024 ambulatory Colleen Mg MD Work Phone: [facility] Work Phone: Start: 10-16-2024 End: 10-16-2024 Patient encounter procedure Brad Soriano DO -[facility] [place] Work Phone: Start: 09-15-2024 End: 09-15-2024 ambulatory Colleen Mg MD Work Phone: [facility] Work Phone: Start: 09-15-2024 End: 09-15-2024 Patient encounter procedure Colleen Mg MD -[facility] Work Phone: Start: 07-11-2024 End: 07-11-2024 ambulatory [facility] Work Phone: Start: 07-11-2024 End: 07-11-2024 Patient encounter procedure [facility] Work Phone: Start: 03-04-2024 End: 03-04-2024 Office outpatient new 45 minutes Gerard Seals DPM Work Phone: [facility] Comment on above: Metatarsus adductus of right foot (Primary Dx); Hallux valgus with bunions of right foot; Primary osteoarthritis of right foot; Capsulitis of foot, right; Neuritis of right foot; Right foot pain Start: 03-04-2024 End: 03-04-2024 ambulatory GERARD SEALS Not Available Start: 03-04-2024 End: 03-04-2024 Bamboo flowsheet Gerard Seals DPM Work Phone: [facility] Start: 03-04-2024 End: 03-04-2024 Bamboo flowsheet Gerard Seals DPM Work Phone: [facility] Start: 02-06-2024 End: 02-06-2024 ambulatory Khalif ROMAN Facility::[id number] Start: 12-26-2023 End: 12-26-2023 ambulatory Khalif MUKHERJEEL Facility:[facility] Start: 12-26-2023 End: 12-26-2023 Patient encounter procedure Khalif ROMAN [facility] Start: 12-20-2023 End: 12-20-2023 ambulatory [facility] Work Phone: Start: 12-20-2023 End: 12-20-2023 Patient encounter procedure [facility] Work Phone: Start: 12-19-2023 Non-patient / Non-visit [facility] Work Phone: Start: 12-03-2023 ambulatory Khalif ROMAN Facility:[facility] Start: 11-29-2023 End: 11-29-2023 ambulatory [facility] Work Phone: Start: 11-29-2023 End: 11-29-2023 Patient encounter procedure [facility] Work Phone: Start: 05-14-2023 End: 05-14-2023 ambulatory [facility] Work Phone: Start: 05-14-2023 End: 05-14-2023 Patient encounter procedure [facility] Physician [facility] Work Phone: Start: 12-20-2022 End: 12-20-2022 ambulatory Jeannine Green Other [facility] Other Start: 12-20-2022 Office outpatient vi sit 15 minutes Jeannine Green [facility] Start: 12-18-2022 End: 12-18-2022 ambulatory Colleen Mg Other [facility] Other Start: 12-18-2022 Telephone encounter Colleen Mg [facility] Start: 10-24-2022 (Televisit) Televisit Colleen Ellison [facility] Start: 10-24-2022 End: 10-24-2022 ambulatory Colleen Mg Other [facility] Other Start: 08-21-2022 End: 08-21-2022 ambulatory Colleen Mg Other [facility] Other Start: 08-21-2022 Office outpatient vi sit 15 minutes Colleen Mg [facility] Start: 08-07-2022 End: 08-07-2022 ambulatory Colleen Mg Other [facility] Other Start: 08-07-2022 Telephone encounter Colleen Mg [facility] Start: 05-08-2022 End: 05-08-2022 ambulatory Colleen Mg Other [facility] Other Start: 05-08-2022 Telephone encounter Colleen Mg [facility] Start: 04-20-2022 End: 04-20-2022 ambulatory Colleen Mg Other [facility] Other Start: 04-20-2022 Telephone encounter Colleen Mg [facility] Start: 03-10-2022 End: 03-10-2022 ambulatory Colleen Mg Other [facility] Other Start: 03-10-2022 Telephone encounter Colleen Mg [facility] Start: 03-08-2022 End: 03-08-2022 ambulatory Colleen Mg Other [facility] Other Start: 03-08-2022 Telephone encounter Colleen Mg [facility] Start: 03-07-2022 End: 03-08-[address] COLLEEN MG Facility:[facility] Start: 03-04-2022 End: 03-05-[address] COLLEEN MG Facility:[facility] Start: 02-28-2022 End: 02-28-2022 ambulatory Colleen Mg Other [facility] Other Start: 02-28-2022 Telephone encounter Colleen Mg [facility] Start: 02-23-2022 End: 02-23-2022 ambulatory Colleen Mg Other [facility] Other Start: 02-23-2022 Encounter for genera l adult medical examination without abnormal findings Colleen Mg [facility] Start: 02-23-2022 Periodic preventive med est patient 40-64yrs Colleen Mg [facility] Start: 01-24-2022 End: 01-24-[address] COLLEEN MG Facility: Start: 01-24-2022 Adult health examination Meli Mg Other [facility] Other Start: 08-04-2021 End: 08-05-[address] COLLEEN MG Facility: Procedures Date Procedure Procedure Detail Performing Clinician Start: 03-04-2024 Radex foot complete minimum 3 views Gerard Seals DPM Work Phone: Start: 08-06-2018 Screening mammography M jelani Saurav Other Start: 02-04-2018 Screening for malign ant [...] Screening for malign ant neoplasm of colon [facility] Start: 11-14-2024 Patient referral [facility] Work Phone: Start: 09-16-2024 Patient referral [facility] Work Phone: Start: 04-01-2024 End: 04-01-2024 Patient encounter procedure 04/01/2024 4:15 PM EST Office Visit [facility] [address] [place] [id number] Gerard Seals, DPM [address] [place] [address] [facility] Start: 03-04-2024 End: 03-04-2024 Patient encounter procedure 03/04/2024 3:30 PM EST Office Visit [facility] [address] [place] [id number] Gerard Seals, DPM [address] [place] [address] Arrived [facility] Comment on above: Arrived Start: 11-29-2023 Patient referral [facility] Work Phone: Start: 10-21-2023 Influenza vaccination Influenz a Vaccine (#1) [facility] Start: 09-25-2017 Screening for malign ant neoplasm of breast Mammogram [facility] Start: 2002 Screening for malign ant neoplasm of breast Mammogram [facility] Start: 1992 Screening for malign ant neoplasm of cervix [facility] Start: 11-01-1983 Screening for malign ant neoplasm of cervix Pap Smear [facility] Start: 1962 Screening for malign ant neoplasm of colon [facility] DXA Skeletal system.axial Views for bone density [facility] MG Breast - bilatera l Screening [facility] Patient referral [facility] Work Phone: Chest [facility] Thyroid gland [facility] Thyroid gland [facility] XR Shoulder - bilate ral Views [facility] XR Shoulder - left Views [facility] Immunizations Immunization Date Immunization Notes Care Provider Nickie fiore 07-14-2020 SARS-CoV-2 (COVID-19 ) Ad26 vaccine, recombinant Khalif LONNYL [facility] Comment on above: Result Comment: 2023: --SELECT TARGET POPULATION/OCCUPATION-- 02-17-2019 zoster vaccine, live Colleen Mg Other [facility] 09-14-2018 zoster vaccine, live Colleen Mg Other [facility] 08-11-2017 tetanus toxoid, reduced diphtheria toxoid, and acellular pertussis vaccine, adsorbed Colleen Mg Other [facility] Other 08-11-2017 tetanus and diphther ia toxoids, adsorbed, preservative free, for adult use (5 Lf of tetanus toxoid and 2 Lf of diphtheria toxoid) [facility] Payers Date Payer Category Payer [facility] Health Insurance [facility] [id number] 1962 Unknown [id number] 1962 Unknown [id number] [id number] 1962 Unknown [id number] [id number] 1962 Unknown [id number] [id number] 1962 Unknown [id number] [id number] 1962 Unknown [id number] [id number] 1962 Unknown [id number]. [id number] 1962 Unknown [id number] [id number] 1962 Unknown [id number] 1959 Unknown [id number] 1959 Unknown [id number] Social History Date Type Detail Facility Unknown if ever smoked [facility] Other Sex Assigned At [facility] Start: 05-14-2023 End: 03-04-2024 Tobacco smoking status TNIS Never smoked tobacco (finding) [facility] Start: 1960 Sex Assigned At Female [facility] Tobacco smoking status Never [facility] smoking consumption unknown [facility] Start: 03-01-2024 Gender identity Identifies as female gender (finding) [facility] Start: 03-01-2024 Sexual orientation Heterosexual (finding) [facility] Start: 03-04-2024 Tobacco use and exposure Smokeless tobacco non-user [facility] Start: 03-04-2024 Alcoholic beverage intake Ex-drinker (finding) [facility] Start: 03-04-2024 Alcoholic beverage intake [facility] Start: 07-11-2024 Sex Female (finding) [facility] Functional Status Date Assessment Result Facility 12-26-2023 Functional Status N/A [facility] Clinical Notes 08-05-2021 to 09-15-2024 Note Date [...] of right shoulder acute October 16 10:43am [facility] Work Phone: 1(519) 824-841805-23-2025 Evaluation note* Diagnosis Onset Date Resolution Status Admit Date Left shoulder pain acute July 112024 11:01am Mass in neck acute September 15, 025 3:17pm Mass of subcutaneous tissue of back acute September 15, 2024 3:17pm [facility] Work Phone: 1(686) 974-771701-14-2025 History of Present illness Narrative* Gerard Seals, [...] understanding. Gerard Seals DPM [id number] NoteGeneral Surgery Office/Clinic Note Chief Complaint consultation for screening colonoscopy [facility] Staff 63 year old female presents on [...] Ad26 vaccine 07/14/2020 Recorded 2023-12-11: --SELECT TARGET POPULATION/OCC[facility] Comment: Electronically Signed By: JESSIE NAYLOR, Khalif Aguilar\Date and Time Signed: 12/26/23 15:42 [id number] Hospital Discharge instructionsAmbulatory Orders* Referral to General Surgery Time Frame: 11/29/23, Location: None [facility] Work Phone: 1(756) 143-210511-01-2023 Evaluation note* Encounter Date Diagnosis Assessment Notes [...] verbalizes understanding and agreement with treatment plan. [facility] Other 09-05-2023 Evaluation note* Encounter Date Diagnosis [...] plan. Also discussed adequate hydration and rest. [facility] Other 07-03-2023 Evaluation note* Encounter Date Diagnosis Assessment Notes Treatment Notes Treatment Clinical Notes Aug, Trochanteric bursitis, left hip (ICD-10 - M70.62) Offered PT. Short course of steroids prescribed. Copied and gave Esther home exercises. Aug, Migraine with aura and without status migrainosus, not intractable (ICD-10 - G43.109) Chronic problem. Will watch for FMLA Forms. [facility] Other 06-19-2023 Evaluation note* Encounter Date Diagnosis Assessment Notes Treatment Notes Treatment Clinical Notes Jul, Mild intermittent asthma without complication (ICD-10 - J45.20) [facility] Other 03-20-2023 Evaluation note* Encounter Date Diagnosis Assessment Notes Treatment Notes Treatment Clinical Notes Apr, Mild intermittent asthma without complication (ICD-10 - J45.20) [facility] Other 01-10-2023 Evaluation note* Encounter Date Diagnosis Assessment Notes Treatment Notes Treatment Clinical Notes Feb, Mild intermittent asthma without complication (ICD-10 - J45.20) [facility] Other 01-05-2023 Evaluation note* Encounter Date Diagnosis [...] intermittent asthma without complication (ICD-10 - J45.20) [facility] Other 06-17-2022 NotePROCEDURE: XR HIP LT 2 3V W PELVIS HISTORY: Pain of left hip joint , chronic COMPARISON: None. FINDINGS: BONES:No fracture, acute abnormality, or significant arthropathy. SOFT TISSUES:No visible soft tissue swelling. EFFUSION:None visible. OTHER: Negative. IMPRESSION: 1. Normal appearance of the hip joints. Electronically authenticated by: DODIE TENA Date: 2021-08-05 08:33[facility] No data available for this section [facility] General Surgery [place] Evaluation noteNo InformationNortSCI-[facility] [employer] Other Evaluation noteNo assessment information available [facility] Work Phone: Evaluation note* Diagnosis Onset Date Resolution Status Osteoporosis acute Screening for colon cancer a cute Screening mammogram for breast cancer acute [facility] Work Phone: Evaluation note* Diagnosis Onset Date Resolution Status Migraines acute Osteoporosis acute Screening for colon cancer a cute Screening mammogram for breast cancer acute [facility] Work Phone: Evaluation note* Diagnosis Metatarsus adductus of right foot- Primary Hallux valgus with bunions of right foot Primary osteoarthritis of right foot Capsulitis of foot, right Neuritis of right foot Right foot pain Pain in soft tissues of limb [facility] Diagnosis Onset Date Resolution Status Admit Date Left shoulder pain acute July 112024 11:01am [facility] Work Phone: History general Narrative - Reported* Type Description Date Medical History Osteoporosis Medical History migraines Medical History asthma Medical History mammogram - 2019 Medical History colonoscopy - 2018 Medical History postmenopausal osteoporosis Surgical History endometriosis Surgical History CV diagnostics Surgical History PE tubes [facility] Other History general Narrative - Reported* Type Description Date Medical History Osteoporosis Medical History migraines Medical History asthma Medical History mammogram - 2019 Medical History colonoscopy - 2018 Medical History postmenopausal osteoporosis Surgical History endometriosis Surgical History CV diagnostics Surgical History PE tubes Hospitalization History see surigcal hx [facility] Other Hospital Discharge instructions No data available for this section [facility] [place] [facility] Discharge instructionsAmbulatory Orders* Referral to ENT Location: None Selected [facility] Work Phone: Progress note No data available for this section [facility] Reason for referral (narrative)No reason for referral information available[facility] Work Phone: Summary Purpose Family History Relationship Condition Age at Onset Recorded Date/T knaa father Unknown Family history of other condition [...] on neck September 15, 2024 3:[address] COLLEEN MG AMARA SHOULDER PAIN [...] of right shoulder October 16, 2024 10:43am Chief Complaint Admit Date Lump on neck September 15, 2024 3:[address] COLLEEN MG [facility] SHOULDER PAIN WX October 16, 2024 10:43am Referral Order November 14, 2024 9:32am Additional Source Comments INFORMATION SOURCE (unrecogn ized section and content) DATE CREATED AUTHOR 03/08/2022 [facility] DATE CREATED AUTHOR AUTHOR'S ORGANIZ ATION 02/13/2024 [facility] DATE CREATED AUTHOR AUTHOR'S ORGANIZ ATION 03/07/2024 [facility] Specialists EPIC REASON FOR VISIT [...] Status: Active Member Role Status Dates Colleen Duran Mg , MD Primary Care Provider Active Team Status: Inactive Member Role Status Bro Mg MD Primary Care Provide r, Attending Provider Active Start: May 14, 2023 End: May 14, 2023 Team Status: Inactive Member Role Status Bro Mg MD Primary Care Provide r, Attending Provider Active Start: November 29, 2023 End: November 29, 2023 Team Status: Active Member Role Status Bro Mg MD Primary Care Provide r, Attending Provider Active Start: December 19, 2023 Team Status: Inactive Member Role Status Bro Mg MD Primary Care Provide r, Attending Provider Active Start: December 20, 2023 End: December 20, 2023 Team Status: Inactive Member Role Status Bro Mg MD Primary Care Provide r, Attending Provider Active Start: July 11, 2024 End: July 11, 2024 Team Status: Inactive Member Role Status Bro Mg MD Primary Care Provider Active Start: July 11, 2024 End: July 11, 2024 Colleen Mg MD Attending Provider Active St art: July 11, 2024 End: July 11, 2024 Team Status: Inactive Member Role Status Bro Mg MD Primary Care Provider Active Start: September 15, 2024 End: September 15, 2024 Colleen Mg MD Attending Provider Active St art: September 15, 2024 End: September 15, 2024 Team Status: Inactive Member Role Status Bro Mg MD Primary Care Provider Active Start: October 16, 2024 End: October 16, 2024 Brad Soriano DO Attending Provider Active St art: October 16, 2024 End: October 16, 2024 Team Status: Active Member Role Status Bro Mg MD Primary Care Provider Active Start: November 14, 2024 Colleen Mg MD Attending Provider Active St art: November 14, 2024 Goals (unrecognized section and content) Goals [...] BE BASED ON THE PRIMARY CLINICAL RECORDS. [facility] [employer] [facility]. provides no warranty or guarantee of the accuracy or completeness of information in this document.
--- NOTE | 2024-11-21 07:50 | CT_ITS ---
The [address] [address] Patient Name: APRYL VALADEZ MRN: [id number] date: 1960 Sex: F Assigned Patient Location: LAB Current Patient Location: Accession/Order Number: [id number] Exam Date: 11/21/2024 08:45 Report Date: 11/21/2024 10:49 At the request of: MARY ANN MG MD Procedure: CT soft tissue neck w con CT soft tissue neck w con 11/21/2024 9:12 AM SIGNS AND SYMPTOMS: Lymphadenopathy Of Head And Neck CONTRAST: 100 mL of intravenous Omnipaque 300 TECHNIQUE: Multidetector CT axial slices of the soft tissues of the neck were obtained with IV contrast. Sagittal and coronal reformats were reconstructed. CT was performed with one or more of the following dose reduction techniques: Automated exposure control, adjustment of the mA and/or kV according to patient size, or use of iterative reconstruction technique. COMPARISON: None FINDINGS: There is a dural-based extra-axial homogeneously enhancing mass along the anterior aspect of the falx projecting to the right of midline causing mass effect on the right frontal lobe. This measures 3.7 x 2.8 cm in transaxial dimension. There is a second smaller meningioma along the left sphenoid wing measuring 1.0 x 0.8 x 0.7 cm in greatest dimension. Soft tissues of the orbits are within normal limits. The soft tissues of the infratemporal fossa fossa structures show no acute abnormality. Mucosal surfaces of the nasopharynx, hypopharynx, glottic, and subglottic airways are grossly unremarkable. There are prominent lymph nodes from the left level 1 through the bilateral level 2. A soft tissue marker is noted over a left submandibular/level 1 lymph node which measures 7 mm in short axis. The largest lymph node is in the right level 2A on the anterior margin of the sternocleidomastoid measuring 1 cm in short axis. These are nonspecific. There is subtle irregularity of the right lingual tonsils. Direct visualization is recommended as malignancy is not excluded. The parotid glands, submandibular, and the thyroid gland are within normal limits. The carotid and jugular circulations are within normal limits. The visualized lung parenchyma shows no acute pathology. No acute bony abnormalities are appreciated. Degenerative changes are noted cervical spine. The skull base, craniocervical junction, atlantoaxial joints are within normal limits. The paranasal sinuses are within normal limits. CT/CT soft tissue neck w con IMPRESSION: There is subtle irregularity of the right lingual tonsils. Direct visualization is recommended as malignancy is not excluded. There are prominent lymph nodes from the left level 1 through the bilateral level 2. A soft tissue marker is noted over a left submandibular/level 1 lymph node which measures 7 mm in short axis. The largest lymph node is in the right level 2A on the anterior margin of the sternocleidomastoid measuring 1 cm in short axis. These are nonspecific. There is a dural-based extra-axial homogeneously enhancing mass along the anterior aspect of the falx projecting to the right of midline causing mass effect on the right frontal lobe. This measures 3.7 x 2.8 cm in transaxial dimension. There is a second smaller meningioma along the left sphenoid wing measuring 1.0 x 0.8 x 0.7 cm in greatest dimension. Impression dictated by: Kamlesh Clements M.D. 11/21/2024 10:49 AM Dictation Location: [place] Electronically authenticated by: [id number] Y Date: 11/21/2024 10:49
[2024-11-21 07:52] LABS: Hematocrit 38.7 % (36.0-48.0); Hemoglobin 13.0 g/dL (12.0-16.0); Immature Granulocytes Abs Auto 0.01 10^3/uL (0.00-0.03); Immature Granulocytes Pct Auto 0.3 % (0.0-0.5); Lymphocytes Absolute Auto 0.8 10^3/uL (1.2-3.8); Mean Corpuscular HGB Conc 33.6 g/dL (29.9-35.2); Mean Corpuscular Hemoglobin 30.4 pg (26.7-34.0); Mean Corpuscular Volume 90.4 fL (81.0-99.0); Platelet Count 213 10^3/uL (150-450); Red Blood Count 4.28 10^6/uL (4.20-5.40); White Blood Count 4.0 10^3/uL (4.0-11.0)
[2024-11-21 08:15] LABS: Alanine Aminotransferase 27 U/L (14-59); Albumin Globulin Ratio 1.1; Albumin Level 3.9 g/dL (3.4-5.0); Alkaline Phosphatase 62 U/L (46-116); Anion Gap 11.6; Aspartate Amino Transferase 15 U/L (15-37); Blood Urea Nitrogen 20.0 mg/dL (7.0-18.0); Calcium 9.4 mg/dL (8.5-10.1); Carbon Dioxide 30.2 mmol/L (21.0-32.0); Chloride 105 mmol/L (98-107); Estimated GFR (African America >60 (>=60 mL/min/1.73m^2); Estimated GFR (Non-African Ame >60 (>=60 mL/min/1.73m^2); Globulin 3.6 g/dL; Glucose 94 mg/dL (74-106); Potassium 3.8 mmol/L (3.5-5.1); Sodium 143 mmol/L (136-145); Total Protein 7.5 g/dL (6.4-8.2)
[2024-11-21 08:25] LABS: Cholesterol 246 mg/dL (<=200); HDL Cholesterol 59 mg/dL (40-60); TSH W/ REFLEX FT4 1.480 uIU/mL (0.358-3.740); Triglycerides 248 mg/dL (<=150); VLDL CHOLESTEROL 49.6 mg/dL
--- NOTE | 2024-11-21 08:33 | MM_ITS ---
Patient Name: APRYL VALADEZ MR#: [id number] : 1960 Exam Date: 11/21/2024 Ordering Doctor: DR MARY ANN MG M.D. RADIOLOGY REPORT PROCEDURE: MM TOMOSYNTHESIS SCREENING BI COMPARISON: MM TOMOSYNTHESIS SCREENING BI, 12/06/2023. MG MAMM SCREEN 3D AMARA CAD, 03/07/2022. MG MAMM SCREEN 3D AMARA CAD, 11/09/2020. MAMMO AMARA SCREEN, 08/13/2009. INDICATIONS: Screening Calculator Name NCI Breast Cancer Risk Assessment Tool 5 Year Breast Cancer Risk 1.70% Lifetime Breast Cancer Risk 7.70% Personal Breast Cancer No Personal Ovarian Cancer No Treatments None Family Cancers None LOCATION: [facility] BREAST COMPOSITION: There are scattered areas of fibroglandular density. FINDINGS: DIAGNOSTIC CATEGORY 1--NEGATIVE. RIGHT BREAST: No significant suspicious finding. LEFT BREAST: No significant suspicious finding. RECOMMENDATIONS: ROUTINE MAMMOGRAM AND CLINICAL EVALUATION IN 12 MONTHS. Dictated by: Boaz Matias DO on 11/21/2024 at 15:45 Approved by: Boaz Matias DO on 11/21/2024 at 15:46
== END 2024-11-21 07:31 | disposition home or self-care (01) ==
LOC: LAB 07:30
PROVIDERS: PCP Family Medicine; Visit Provider Family Medicine
DX: Z00.00 Encounter for general adult medical examination without abnormal findings (principal); Z12.31 Encounter for screening mammogram for malignant neoplasm of breast; R59.1 Generalized enlarged lymph nodes
CPT/HCPCS: 36415; 70491; 77063; 77067; 80053; 80061; 84443; 85025; Q9967

== ENCOUNTER 2024-12-22 15:42 | Outpatient (OUT) | payer OTHER, SELFPAY ==
--- NOTE | 2024-12-22 15:46 | US_ITS ---
The [address] [address] Patient Name: APRYL VALADEZ MRN: [id number] date: 1960 Sex: F Assigned Patient Location: Current Patient Location: Accession/Order Number: [id number] Exam Date: 12/22/2024 15:59 Report Date: 12/23/2024 08:55 At the request of: JACQUELIN CERVANTES MD Procedure: US soft tissue head and neck LIMITED ULTRASOUND - neck CLINICAL DATA: Follow-up lymphadenopathy. COMPARISON: CT 11/21/2024 and ultrasound 11/12/2024 Real-time ultrasound evaluation of the left neck was performed. Adjacent to the left submandibular gland, there are 2 hypoechoic reniform nodules with fatty hilus though cortical thickening measuring 12 x 8 x 6 mm and 12 x 6 x 11 mm in size. Appearance is compatible with lymph nodes. At the lower neck on the left adjacent to the vascular bundle is another lymph node with fatty hilus and cortical thickening measuring 8 x 4 x 8 mm. These measurements are slightly smaller. US/US soft tissue head and neck IMPRESSION: CONTINUED CERVICAL LYMPH NODES WITH CORTICAL THICKENING, POSSIBLY SLIGHTLY SMALLER. Impression dictated by: Lesia Escobar M.D. 12/23/2024 8:55 AM Dictation Location: [place] [address] Electronically authenticated by: [id number] Y Date: 12/23/2024 08:55
--- OUTSIDE RECORDS SUMMARY | 2024-12-22 16:03 | XMS_ITS | CCD ---
Author Organization [facility] Care Team Providers Care Saturator Name Role Phone DR COLLEEN MG Admitting Unavailable SAURAV, DR COLLEEN Duran Attending Unavailable MG, DR [...] SMITHA FOURNIER Consulting Unavailable Colleen Mg Unavailable Jeaninne Green Unavailable [phone] COLLEEN MG Primary Care Physician Khalif ROMAN Attending Unavailable Khalif ROMAN Attending Unavailable Unavailable Primary Care Provider UnavailColleen Saleh MD Primary Care Provider Colleen Mg MD Attending Provider Colleen Mg MD Primary Care Provider Colleen Mg MD Attending Provider [phone] Brad Soriano DO Attending Provider [phone] Colleen Mg MD Primary Care Provider [phone] ABI CERVANTES Attending Unavailable GERARD SEALS Attending Unavailable GERARD SEALS Referring Unavailable Colleen Mg MD Primary Care Provider Colleen Mg MD Attending Provider [phone] Colleen Mg Attending Unavailable Colleen Mg Admitting Unavailable Colleen Mg Attending Unavailable Colleen Mg Primary Care Unavailable Colleen Mg Admitting Unavailable Allergies Allergy ClassificationReported Allergen(s)Allergy TypeDate of OnsetReaction(s) Facility (11 sources)PenicillinsDrug allergy (disorder)91-87-6871LiisnHygTri[facility] (1 source)Sulfonamides (Antibiotic)Drug allergy (disorder)02-44-6097QkzAcmc [facility] Repository (1 source)Darvocet-N 100Drug allergy (disorder)68-88-6156QiuAcmc Healthcare System Repository (11 sources)Acetaminophen / PropoxypheneDrug AllergyNewport Hospital [employer] Other (20 sources)Penicillin GDrug Ikzugbq36-09-5152dnjqepWnyfiriwfWright-Patterson Medical Center (11 sources)Sulf-10Drug allergysensativitySwedish Medical Center Issaquah [employer] Other (5 sources)Penicillin; Translations: [penicillin]Drug AllergyWeal (disorder) [facility] [place] (3 sources)PropoxypheneDrug Uxbmclm41-56-1785UqqyrleDgmyc [employer] Other (3 sources)Substance with penicillin structure and antibacterial mechanism of action (substance)Drug allergySSM DePaul Health Center [employer] Other (2 sources)patient allergy list reviewed by nurse or physiciaPropensity to adverse htstnutfk16-82-0653Uozfluo:[facility] [employer] Other (8 sources)Substance with sulfonamide structure and antibacterial mechanism of action (substance)Drug zxxomlh93-03-2829WqcohijZqvuc [employer] Other (2 sources)Allergies ReconciledPropensity to adverse reactionsSSM DePaul Health Center [employer] Other (3 sources)Darvocet A500 *ANALGESICS - OPIOID*Propensity to adverse reactions [facility] [employer] Other (13 sources)AcetaminophenDrug Ffxjqwq68-62-7543BlwozHocking Valley Community Hospital (16 sources)Propoxyphene; Translations: [propoxyphene]Drug Jdqcqkc08-65-6972 [facility] (10 sources)Sulfonamides (Antibiotic)Allergy to bbhicfeia14-41-9355DmxyvGalion Community Hospital (10 sources)Darvocet A500 *ANALGESICS - OPAllergy to cqotfbmhd69-38-6931HlujkGalion Community HospitalComment on above:Free Text Allergy: Darvocet A500 *ANALGESICS - OPIOID* (1 source)acetaminophen / propoxyphene; Translations: [acetaminophen-propoxyphene]Drug AllergyWeal (disorder)[facility] HospitalComment on above:darvocet generic (2 sources)Sulfonamides (Antibiotic); Translations: [sulfa drugs]Drug allergy Weal (disorder)[facility] (1 source)Azithromycin; Translations: [azithromycin]Drug AllergySt. [facility] Rep[facility] (1 source)Darvocet-N 50; Translations: [Darvocet-N 50]Propensity to adverse reactions (disorder)[facility] (5 sources)PenicillinsDrug Vvasglp01-66-4337[facility] (5 sources)OtherPropensity to adverse tvlebxxvd73-99-1076[facility] Medications Current Medications MedicationDrug Class(es)DatesSig (Normalized)Sig (Original)acetaminophen 250 mg / aspirin 250 mg / caffeine 65 mg oral tablet (20 sources)Platelet Aggregation Inhibitor, Nonsteroidal Anti-inflammatory Drug, Central Nervous System Stimulant, MethylxanthineStart: 14-81-8335fszp 1 tablet by mouth every four to six hours as neededtake 1 tablet by mouth every six hours as needed for zfbykohvfdspuga-keaoklgafkpit-hjfrimqv (Excedrin Migraine) 250-250-65 MG tablet Take 1 tablet by mouth every 6 (six) hours if needed for headaches [id number] 200 actuat albuterol 0.09 mg/actuat metered dose inhaler (12 sources)beta2-Adrenergic AgonistStart: 87-02-6702xxje 1 puff(s) by inhalation every four to six hours as needed for wheezingStart: 51-76-9736jums 1 puff(s) by inhalation every four to six hoursAlbuterol Sulfate Active 2 PUFF INHALATION EVERY 4-6 HOURS 6.7 December 20, 2023 12:00amtake 2 puff(s) by inhalation every four hoursalbuterol HFA 90 mcg/act inhaler 2 puffs every 4 (four) hours if needed ActiveAlbuterol Sulfate 90 mcg/actuation HFA aerosol inhaler (1 source)Start: 24-53-6286tkvw 1 puff(s) by inhalation every four to six hours as needed for wheezingAlbuterol Sulfate 90 mcg/actuation HFA aerosol inhaler Active 2 PUFF INHALATION EVERY 4-6 HOURS as needed for shortness of breath or wheezing 6.7 December 20, 2023 12:64te014 actuat fluticasone propionate 0.11 mg/actuat metered dose inhaler (20 sources)CorticosteroidStart: 47-81-0675mqki 2 puff(s) by inhalation twice dailyfluticasone CFC free 110 mcg/inh Inh Aer w/adapter 2 puff(s), Inhalation, BID, Refill(s) 0 Start Date: 12/11/23 Status: RussellStart: 79-45-6126llmr 2 puff(s) by inhalation twice dailyFluticasone Propionate Active 2 PUFF INHALATION Twice daily October 02, 2023 9:54am FreeTextSi puffs Inhalation Twice a day; Note: Source Status: Taking; Refills: 2; Provider: Saurav Castaneda: 08-28-2023 End: 77-84-3750hvlg 2 puff(s) by inhalation twice dailyFluticasone Propionate Discontinued 2 PUFF INHALATION Twice daily August 28, 2023 10:29am October 02, 2023 9:54am Free[employer] puffs Inhalation Twice a day; Note: Source Status: Taking; Refills: 2; Provider: Saurav Mcmillan: 05-14-2023 End: 30-61-5075znfn 2 puff(s) by inhalation twice dailyFluticasone Propionate 110 mcg/actuation HFA aerosol inhaler Discontinued 2 PUFF INHALATION Twice daily October 02, 2023 9:54am August 25, 2024 4:28pm Free[employer] puffs Inhalation Twice a day; Note: Source Status: Taking; Refills: 2; Provider: Saurav Mcmillan: 05-14-2023 End: 95-97-2283ejvv 2 puff(s) by inhalation twice dailyFluticasone Propionate Discontinued 2 PUFF INHALATION Twice daily May 14, 2023 12:00am August 28, 2023 10:30am Free[employer] puffs Inhalation Twice a day; Note: Source Status: Taking; Refills: 2;Provider: Saurav Mcgeeart: 01-07-4421gwug 2 puff(s) by inhalation twice dailyFluticasone Propionate Active 2 PUFF INHALATION Twice daily May 14, 2023 12:00am FreeTextSipuffs Inhalation Twice a day; Note: Source Status: Taking; Refills: 2; Provider: aSurav Mcgeeart: 88-53-2341kngz 2 puff(s) by inhalation twice dailyFlovent HFA 110 MCG/ACT 2 puffs Inhalation Twice a day for 30 days Feb, ActiveStart: 03-34-9612ncpl 1 spray(s) nasal route once dailyFluticasone Propionate 50 MCG/ACT 1 spray in each nostril Nasally Once a day for 30 days Dec, Activetake 2 puff(s) by inhalation in the morningfluticasone (Flovent) 110 MCG/ACT inhaler Inhale 2 puffs in the morning and 2 puffs before bedtime.ActiveFluticasone Propionate 110 mcg/actuation HFA aerosol inhaler (3 sources)Start: 62-16-0460gytg 2 puff(s) by inhalation twice dailyFluticasone Propionate 110 mcg/actuation HFA aerosol inhaler Active 2 PUFF INHALATION Twice daily October 02, 2023 9:54am FreeTextSi puffs Inhalation Twice a day; Note: Source Status: Taking; Refills: 2; Provider: Saurav Macias EStart: 08-28-2023 End: 01-08-3766obew 2 puff(s) by inhalation twice dailyFluticasone Propionate 110 mcg/actuation HFA aerosol inhaler Discontinued 2 PUFF INHALATION Twice daily August 28, 2023 10:29am October 02, 2023 9:54am FreeTextSi puffs Inhalation Twice a day; Note: Source Status: Taking; Refills: 2; Provider: Saurav Mcgeeart: 05-14-2023 End: 32-98-1177chxh 2 puff(s) by inhalation twice dailyFluticasone Propionate 110 mcg/actuation HFA aerosol inhaler Discontinued 2 PUFF INHALATION Twice daily May 14, 2023 12:00am August 28, 2023 10:30am FreeTextSi puffs Inhalation Twice a day; Note: Source Status: Taking; Refills: 2; Provider: Saurav Duran ibandronic acid 150 mg oral tablet (3 sources)BisphosphonateStart: 18-00-9914pjzm 1 tablet by mouth every month meloxicam 15 mg oral tablet (9 sources)Nonsteroidal Anti-inflammatory DrugStart: 65-26-4972nclh 1 tablet by mouth once dailypredniSONE 10 mg oral tablet (2 sources)Start: 03-04-2024 End: 15-43-3208zxfprbKDNK (Deltasone) 10 MG tablet Indications: Primary osteoarthritis of right foot , Neuritis ofright foot Take 1 tablet (10 mg) by mouth See administration instructions for 12 days Take one tablet three times a day x 3 days, then take one tablet twice a day x 3 days, then take one tablet once a day x 3 days, then take 1/2 tab once a day x 3 days 20 tablet 03/04/2024 03/16/2024 ActiveSUMAtriptan 25 mg oral tablet (20 sources)Serotonin-1b and Serotonin-1d Receptor AgonistStart: 12-11-2023 SUMAtriptan (Imitrex) 25 MG tablet Take 25 mg by mouth 12/11/2023 ActiveStart: 00-24-0679jidx 1 tablet by mouth once as needed for headacheImitrex 25 mg Tab 25 mg = 1 tab(s), Oral, Once, PRN Migraine headache, Refills(s) 0 Start Date: 11/20 04/14 Status: OrderedStart: 58-40-4276mpgx 8 tablets by mouth every twenty-four hours as neededImitrex Active Completed/Discontinued Medications MedicationDrug Class(es)DatesSig (Normalized)Sig (Original)alendronic acid 70 mg oral tablet (20 sources)BisphosphonateStart: 05-14-2023 End: 82-25-8616rzqlrgjdcinm 250 mg oral tablet (20 sources)Macrolide AntimicrobialStart: 12-20-2023 End: 67-66-5683Etodfmgqghsz 250 mg tablet Discontinued 0 PO .COMPLEX 6 0 December 20, 2023 12:00am July 111:30am For 250 mg dose pack: take 500 mg today (day 1), then 250 mg for 4 days (days 2-5) POStart: 64-75-5690Brtovijlglhk Active 0 PO .COMPLEX 6 December 20, 2023 12:00am For 250 mg dose pack: take 500 mg today (day 1), then 250 mg for 4 days (days 2-5) POStart: 05-14-2023 End: 25-86-8151Splavyvzdjid 250 mg tablet Discontinued 0 PO .COMPLEX 6 0 May 14, 2023 12:00am November 29, 2023 11:35am For 250 mg dose pack: take 500 mg today (day 1), then 250 mg for 4 days (days 2-5) POStart: 05-14-2023 End: 80-90-9647Rztzkyoxrcsl Discontinued 0 PO .COMPLEX 6 May 14, 2023 12:00am November 29, 2023 11:35am For 250 mg dose pack: take 500 mg today (day 1), then 250 mg for 4 days (days 2-5) POStart: 98-84-5774Ayxehyghntbp Active 0 PO .COMPLEX 6 May 14, 2023 12:00am For 250 mg dose pack: take 500 mg today (day 1), then 250 mg for 4 days (days 2-5) POStart: 19-67-6914Qmckswqgamau 250 MG as directed Orally 2 tabs po today, then 1 tab daily x 4 more days for 5 Oct, Activedoxycycline hyclate 100 mg oral tablet (5 sources)Tetracycline-class DrugStart: 09-22-2024 End: 24-90-1304yqqz 1 tablet by mouth twice dailyDoxycycline Hyclate 100 mg tablet Discontinued 100 MG PO Twice daily 14 0 September 22, 2024 12:00am S prudenciomani 2024 3:27pmmethylPREDNISolone 4 mg oral tablet (20 sources)CorticosteroidStart: 07-11-2024 End: 56-66-7948mwsy 1 tablet by mouth onceMethylprednisolone (Medrol (Star)) 4 mg tablets,dose pack Discontinued 0 PO per package directions 21 0 July 11, 2024 12:00am September 15, 2024 3:37pm PO PER PKG DIR for 6 daysStart: 08-21-2022 methylPREDNISolone 4 MG as directed Orally for 6 days Aug, ActiveStart: 81-21-8608tzrchamhaso 10 mg oral tablet (20 sources)Leukotriene Receptor AntagonistStart: 07-04-2022 End: 34-91-4430ainf 1 tablet by mouth once daily at bedtimeMontelukast 10 mg tablet Discontinued 10 MG PO Daily at bedtime May 14, 2023 12:00am May 14, 2023 3:49pm FreeTextSi tablet Orally at bedtime; Note: Source Status: Taking; Refills: 3; Qty:90 Tablet; Provider: Saurav Duran Problems Active Problems Problem ClassificationProblemDateDocumented DateEpisodic/ChronicAcquired foot deformities (2 sources)Hallux valgus AND bunion; Translations: [Hallux valgus (acquired), right foot]11-59-0202OoxxcrzSqtrgj (20 sources)Mild intermittent asthma; Translations: [Mild intermittent asthma, uncomplicated]Onset: 74-74-4338VyswiwmFcudkbx obstructive pulmonary disease and bronchiectasis (10 sources)Bronchitis; Translations: [Bronchitis, not specified as acute or chronic]Onset: 845772-45-8730GhkbbnvfKjdktkdzyreoq (4 sources)Endometriosis (clinical); Translations: [Endometriosis, unspecified] Onset: 630452-45-9949HkvjrymEdjst of unknown origin (6 sources)Fever, unspecified; Translations: [Fever]Onset: 31-07-3840Eiksonwr Genitourinary symptoms and ill-defined conditions (2 sources)Dysuria; Translations: [Dysuria]EpisodicHeadache; including migraine (20 sources)Migraine with aura; Translations: [Migraine with aura, not intractable, without status migrainosus]Onset: 58-75-5989AuhfpstMrphvfqly (13 sources)Influenza due to Influenza B virus; Translations: [Influenza B] EpisodicLymphadenitis (9 sources)Head and neck lymphadenopathy; Translations: [Generalized enlarged lymph nodes]Onset: 967056-85-7591BxnrarfcTjxctkpyowwguz (15 sources)Osteoarthritis of right foot; Translations: [Primary osteoarthritis, right ankle and foot]Onset: 155522-69-3183CphftquGlaujyszmykb (17 sources)Primary osteoporosis; Translations: [Age-related osteoporosis without current pathological fracture]Onset: 740369-07-2315FsttoozXibqj and unspecified benign neoplasm (3 sources)Neoplasm of meninges; Translations: [Benign neoplasm of meninges, unspecified]20-01-9305XfxsnhtXjfkq and unspecified benign neoplasm (1 source)Benign neoplasm of meninges, unspecified; Translations: [Benign neoplasm of meninges, unspecified]Onset: 63-64-6783WfvyuinWmatl congenital anomalies (2 sources)Right metatarsus adductus; Translations: [Congenital metatarsus adductus, right foot]15-14-9393YdhlnybSneft connective tissue disease (1 source)Trochanteric bursitis, left hipEpisodicOther connective tissue disease (2 sources)Capsulitis; Translations: [Other enthesopathies, not elsewhere classified]07-40-8174AkdpruxyXuely connective tissue disease (6 sources)Pain in right foot; Translations: [Pain in right foot]03-04-2024 EpisodicOther connective tissue disease (13 sources)Right rotator cuff syndrome; Translations: [Unspecified rotator cuff tear or rupture of right shoulder, not specified as traumatic]Onset: 12-01-2024 49-97-2296WxmgvqdyVcvjw connective tissue disease (13 sources)Biceps tendinitis; Translations: [Bicipital tendinitis, right shoulder]Onset: 249161-85-8586ZfzqnzwbTdjzg connective tissue disease (2 sources)Foot painEpisodicOther ear and sense organ disorders (3 sources)Chronic tympanitis; Translations: [Chronic myringitis, unspecified ear]Onset: 695847-81-4113NjbustdXmyty ear and sense organ disorders (3 sources)Sensorineural hearing loss, bilateral; Translations: [Sensorineural hearing loss, bilateral]Onset: 210524-33-8580KfvtskrOmzdl nervous system disorders (2 sources)Right foot neuritis; Translations: [Unspecified mononeuropathy of right lower limb]23-94-6664LswudjyLuhjt non-traumatic joint disorders (2 sources)Arthralgia of the pelvic region and thigh; Translations: [Pain in left hip]EpisodicOther non-traumatic joint disorders (13 sources)Pain in left shoulder; Translations: [Left shoulder pain]07-11-2024 EpisodicOther non-traumatic joint disorders (8 sources)Pain in right shoulder; Translations: [Bilateral shoulder pain]Onset: 064202-21-7277VmizesjvUnwik nutritional; endocrine; and metabolic disorders (8 sources)Body mass index 30+ - obesity; Translations: [Body mass index (BMI) 30.0-30.9, adult]Onset: 408991-01-9565BimorqrZtlql nutritional; endocrine; and metabolic disorders (4 sources)Obesity caused by energy imbalance; Translations: [Other obesity due to excess calories]Onset: 858735-56-2645DbiikepJzhrs screening for suspected conditions (not mental disorders or infectious disease) (2 sources)Computed tomography result abnormal; Translations: [Abnormal findings on diagnostic imaging of other specified body structures]Onset: 12-15-2024 70-95-1251FowjrxzYwakc screening for suspected conditions (not mental disorders or infectious disease) (20 sources)Encounter for screening mammogram for malignant neoplasm of breast; Translations: [Encounter for screening for malignant neoplasm of colon]Onset: 33-25-3404CfkvlbyhBteqm skin disorders (14 sources)Mass of subcutaneous tissue of back; Translations: [Localized swelling, mass and lump, trunk]Onset: 738507-81-6347WljxokbmOpvqf skin disorders (14 sources)Mass of neck; Translations: [Localized swelling, mass and lump, neck]Onset: 634686-46-2791MucgyohvEjqxs upper respiratory disease (2 sources)Seasonal allergic rhinitis; Translations: [Other seasonal allergic rhinitis]ChronicOther upper respiratory disease (6 sources)Allergic rhinitis; Translations: [Allergic rhinitis, unspecified] Onset: 307947-84-1827MrulwqzEcvgg upper respiratory infections (2 sources)Chronic sinusitis; Translations: [Chronic sinusitis, unspecified] ChronicOther upper respiratory infections (20 sources)Streptococcal sore throat; Translations: [Strep pharyngitis]Onset: 85-35-4827WzsxbjahVsmmgw media and related conditions (19 sources)Non-suppurative otitis media; Translations: [Unspecified nonsuppurative otitis media, right ear]Onset: 53-80-0747MdllvvajEknbjnlyszyq (3 sources)COUGH, UNSPECIFIED; Translations: [COUGH, UNSPECIFIED]Onset: 61-53-4772Qpadimsiqvzn (1 source)CONTACT W/AND (SUSP) EXPOS COVID-19; Translations: [CONTACT W/AND (SUSP) EXPOS COVID-19]Onset: 44-97-2381Qrjosuzuwduh (2 sources)Encounter for immunization safety counseling; Translations: [Encounter for immunization safety counseling]Onset: 24-65-0742Vweeimtemldr (1 source)Patient encounter uixirq67-55-1984Lqbymaekzkfs (2 sources)Left shoulder pain; Translations: [M25.512 - Pain in left shoulder] Unclassified (3 sources)R22.1 - Localized swelling, mass and lump, neck,R59.1 - Generalized enlarged lymph nodesUnclassified (3 sources)M79.671 - Pain in right foot Past or Other Problems Problem ClassificationProblemDateDocumented DateEpisodic/ChronicOther non- traumatic joint disorders (4 sources)Pain in left hip; Translations: [PAIN IN LEFT HIP]Onset: 08-04-2021 EpisodicOther nutritional; endocrine; and metabolic disorders (2 sources)Abnormal weight gain; Translations: [Abnormal weight gain]Onset: 93-92-6669WvssjislLedicgsyziuk (1 source)COUGH, UNSPECIFIED; Translations: [COUGH, UNSPECIFIED]Onset: 01-24-2022 Results Test NameValueInterpretationReference RangeFacilityMR head/brain wo [facility] 45-73-4754JM head/brain [place] [facility] [place] [address] MRI Report Signed Patient: Esther Boudreaux MR#: [id number] : 1960 Acct:[id number] Age/Sex: 64 / F ADM Date: 12/15/24 Loc: MR Room: Type: [facility] Attending Dr: Colleen Mg MD Copies to: Colleen Mg MD Ordering Provider: Colleen Mg MD Date of Service: 12/15/24 MR/MR head/brain wo con: D32.9 - Benign neoplasm of meninges, unspecified EXAMINATION: MRI OF THE BRAIN WITHOUT CONTRAST CLINICAL HISTORY: Abnormal soft tissue neck CT COMPARISON: CT soft tissues neck 11/21/2024 TECHNIQUE: Multiecho, multiplanar imaging of the brain was performed without contrast. FINDINGS: No restricted diffusion. Right parafalcine extra-axial mass relatively isointense to brain parenchyma with punctate areas of diminished GRE signal just of constipation this measures 3.7 x 3.1 x 3.5 cm in size and is most suggestive of meningioma. Similarly, along the left lower of the intracranial fossae, there is additional 9 mm focus abnormal signal suggestive of a planum sphenoidale meningioma. Mild focal mass effect with minimal areas of T2 FLAIR signal identified adjacent the right frontal parafalcine meningioma. Otherwise minimal periventricular and scattered subcortical T2 prolongation identified suggest of chronic small vessel ischemic disease. No abnormal GRE signal identified elsewhere. The major intracranial arterial vascular flow was preserved. Mild to moderate ethmoid sinus mucosal thickening. MR/MR head/brain wo con IMPRESSION: Redemonstration of the 3.5 x 3.7 x 3.1 cm right parafalcine meningioma. 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 Negative acute intracranial process by MRI. Impression dictated by: Kvng Winston M.D. 12/15/2024 10:41 PM Dictation Location: [place] [address] Transcribed By: [facility] 12/15/242240 Dictated By: vKng Winston MD 12/15/242231 Signed By: 12/15/242240[facility] Phys[facility] GroupDignity Health East Valley Rehabilitation Hospitaletic resonance imaging reportOrdered By: Kvng Winston on 54-85-3596Oialj reportKETTERING HEALTH PREBLE [facility] [place] [address] [place], [place] [id number] MRI Report Signed Patient: Esther Boudreaux MR#: [id number] : 1960 Acct:[id number] Age/Sex: 64 / F ADM Date: 5 Loc: Room: Type: [facility] Attending Dr: Colleen Mg MD Copies to: Colleen Mg MD~ Ordering Provider: Colleen Mg MD Date of Service: 12/15/24 MR/MR head/brain wo con: D32.9 - Benign neoplasm of meninges, unspecified EXAMINATION: MRI OF THE BRAIN WITHOUT CONTRAST CLINICAL HISTORY: Abnormal soft tissue neck CT COMPARISON: CT soft tissues neck 11/21/2024 TECHNIQUE: Multiecho, multiplanar imaging of the brain was performed without contrast. FINDINGS: No restricted diffusion. Right parafalcine extra-axial mass relatively isointense to brain parenchyma with punctate areas of diminished GRE signal just of constipation this measures 3.7 x 3.1 x 3.5 cm in size and is mostsuggestive of meningioma. Similarly, along the left lower of the intracranial fossae, there is additional 9 mm focus abnormal signal suggestive of a planum sphenoidale me ningioma. Mild focal mass effect with minimal areas of T2 FLAIR signal identified adjacent the right frontal parafalcine meningioma. Otherwise minimal periventricular and scattered subcortical T2 prolongation identified suggest of chronic small vessel ischemic disease. No abnormal GRE signal identified elsewhere. The major intracranial arterial vascular flow was preserved. Mild to moderate ethmoid sinus mucosal thickening. MR/MR head/brain wo con IMPRESSION: Redemonstration of the 3.5 x 3.7 x 3.1 cm right parafalcine meningioma. 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 Negative acute intracranial process by MRI. Impression dictated by: Kvng Winston M.D. 12/15/2024 10:41 PM Dictation Location: [place] [address] Transcribed By: [facility] 12/15/242240 Dictated By: Kvng Winston MD 12/15/242231 Signed By: 12/15/242240 [facility] Work Phone: Basophils Auto (Bld) [#/Vol]Ordered By: Colleen Mg on 24-47-6202Spvekbrfi (Bld) [#/Vol]0.0 10 3/uL0.0-0.1FACMC Healthcare System GlenbeighBasophils/100 WBC Auto (Bld)Ordered By: Colleen Mg on 11-21-2024 Basophils/100 WBC (Bld)0.8 %0.2-2.0[facility] HospitalCholesterol in LDL Calc [Mass/Vol]Ordered By: Colleen Mg on 14-91-4647Ndgoohipmhx in LDL [Mass/Vol]138.0 mg/dLMckitrick HospitalComment on above:<100 mg/dl HJTOXGG227-220 mg/dl NEAR OR ABOVE CNGEOAL541-005 mg/dl BORDERLINE RRSD962-753 mg/dl HIGH>190 mg/dl VERY HIGHCholesterol in VLDL Calc [Mass/Vol] Ordered By: Colleen Mg on 72-21-4314Gavwxaiepnt in VLDL [Mass/Vol]49.6 mg/dL [facility] HospitalEosinophils/100 WBC Auto (Bld)Ordered By: Colleen Mg on 57-70-2568Rpgzvnaainz/100 WBC (Bld)2.5 %0.9-7.0M[facility]itrick HospitalErythrocyte distribution width Auto (RBC) [Ratio]Ordered By: Colleen Mg on 29-62-8297Lmauhudrfhw distribution width (RBC) [Ratio]13.0 % 11.0-15.0[facility]itrick HospitalGlobulin Calc (S) [Mass/Vol]Ordered By: Colleen Mg on 93-34-9635Hubaytyw (S) [Mass/Vol]3.6 g/dLMckitrick HospitalGlomerular filtration rate (GFR) estimation in non- AmericanOrdered By: Colleen Mg on 87-99-5279CBA/1.73 sq M.predicted among non- blacks MDRD (S/P/Bld) [Vol rate/Area]mL/min/{1.73_m2}>=60 mL/min/1.73m 2 [facility] HospitalHematocrit Auto (Bld) [Volume fraction]Ordered By: Colleen Mg on 70-26-5835Taevwdzzsa (Bld) [Volume fraction]38.7 %36.0-48.0 [facility] HospitalHemoglobin [Mass/volume] in BloodOrdered By: Colleen Mg on 15-42-1486Awkinebbcx (Bld) [Mass/Vol]13.0 g/dL12.0-16.0[facility] HospitalLaboratory - Chemistry and Chemistry - challengeOrdered By: Colleen Mg on 75-16-6200Cbtipmt [Mass/Vol]3.9 g/dL3.4-5.0[facility] HospitalALP [Catalytic activity/Vol]62 U/F11-579NvelxgrhlMckitrick HospitalALT [Catalytic activity/Vol]27 U/S74-42OillkuxdvMckitrick HospitalAST [Catalytic activity/Vol]15 U/A47-22WokjdzbykMckitrick HospitalBilirubin [Mass/Vol]0.3 mg/dL0.2-1.0[facility] Calcium [Mass/Vol]9.4 mg/dL8.5-10.1FAC[facility] GlenbeighChloride [Moles/Vol]105 mmol/Y89-720RwacrdnspMckitrick HospitalCholesterol [Mass/Vol]246 mg/dLHigh<=200[facility] HospitalCholesterol in HDL [Mass/Vol]59 mg/aF73-20ZseuowiirMckitrick HospitalComment on above:> or =60 mg/dl - LOW CARDIOVASCULAR RISK<40 mg/dl - HIGH CARDIOVASCULAR RISKCO2 [Moles/Vol]30.2 mmol/L21.0-32.0[facility] HospitalCreatinine [Mass/Vol]0.72 mg/dL0.55-1.02[facility] HospitalGFR/1.73 sq M.predicted MDRD (S/P/Bld) [Vol rate/Area]mL/min/{1.73_m2}>=60 mL/min/1.73m 2 [facility] HospitalGlucose [Mass/Vol]94 mg/bW20-331SrapwtripMckitrick HospitalPotassium [Moles/Vol]3.8 mmol/L3.5-5.1F[facility] GlenbeighProtein [Mass/Vol]7.5 g/dL6.4-8.2[facility] Sodium [Moles/Vol]143 mmol/X554-276CqftxifpuMckitrick HospitalTriglyceride [Mass/Vol]248 mg/dLHigh<=150M[facility] HospitalTSH Qn1.480 m[IU]/L0.358-3.740M[facility] HospitalUrea nitrogen [Mass/Vol]20.0 mg/dLHigh7.0-18.0[facility] HospitalUrea nitrogen/Creatinine [Mass ratio]27.8 mg/mgMckitrick HospitalLaboratory - Hematology and Cell countsOrdered By: Colleen Mg on 13-10-8958Rokymqzp granulocytes/100 WBC (Bld)0.3 %0.0-0.5FAC[facility] Healthcare System GlenbeighLeukocytes [#/volume] corrected for nucleated erythrocytes in Blood by Automated counOrdered By: Colleen Mg on 21-92-6208YJE corrected for nucl RBC Auto (Bld) [#/Vol]4.0 10 3/uL4.0-11.0[facility] HospitalLymphocytes Auto (Bld) [#/Vol] Ordered By: Colleen Mg on 97-92-4785Amfqouajqcu (Bld) [#/Vol]0.8 10 3/uLLow 1.2-3.8[facility] HospitalLymphocytes/100 WBC Auto (Bld)Ordered By: Colleen Mg on 84-49-3352Javqxvzjkku/100 WBC (Bld)20.7 %20.5-60.0[facility] Auto (RBC) [Entitic mass]Ordered By: Colleen Mg on 98-33-0915EMJ (RBC) [Entitic mass]30.4 pg26.7-34.0[facility] Auto (RBC) [Mass/Vol]Ordered By: Colleen Mg on 63-56-4246KIIR (RBC) [Mass/Vol]33.6 g/dL29.9-35.2FUpper Valley Medical CenterV Auto (RBC) [Entitic vol]Ordered By: Cloleen Mg on 06-38-5218JHK (RBC) [Entitic vol]90.4 fL81.0-99.0[facility] HospitalMonocytes Auto (Bld) [#/Vol]Ordered By: Colleen Mg on 88-15-5997Aibtwwniw (Bld) [#/Vol]0.3 10 3/uL0.3-0.8[facility] HospitalMonocytes/100 WBC Auto (Bld)Ordered By: Colleen Mg on 54-58-5396Xsjzsfagd/100 WBC (Bld)8.3 %1.7-12.0[facility] Neutrophils Auto (Bld) [#/Vol]Ordered By: Colleen Mg on 55-41-1846Wvcsxgelzvp (Bld) [#/Vol]2.7 10 3/uL1.4-6.5[facility] GlenbeighNeutrophils/100 WBC Auto (Bld)Ordered By: Colleen Mg on 38-50-9369Kkxofmwdwqq/100 WBC (Bld) 67.4 %43.0-75.0[facility] HospitalNo Panel InformationOrdered By: Collene Mg on 36-43-7481Ioptfdiqcas # (Auto)0.1 10 3/uL0.0-0.7F[facility] GlenbeighImmature Granulocyte # (Auto)0.01 10 3/uL0.00-0.03 [facility] HospitalPlatelet mean volume Auto (Bld) [Entitic vol] Ordered By: Colleen Mg on 89-67-5686Dltkrind mean volume (Bld) [Entitic vol] 8.7 fLLow9.5-13.5FAC[facility] Healthcare System GlenbeighPlatelets Auto (Bld) [#/Vol] Ordered By: Colleen Mg on 67-13-8227Jjrexqhkd (Bld) [#/Vol]213 10 3/uV103-702 [facility] HospitalRBC Auto (Bld) [#/Vol]Ordered By: Colleen Mg on 49-44-8621IFY (Bld) [#/Vol]4.28 10 6/uL4.20-5.40UC Healtherum or plasma albumin/globulin mass ratioOrdered By: Colleen Mg on 06-01-3030Vklvzhr/Globulin [Mass ratio]1.1 {ratio}UC Healtherum or plasma anion gap determinationOrdered By: Colleen Mg on 43-36-4563Xqikd gap [Moles/Vol]11.6 mmol/LFSelect Medical Cleveland Clinic Rehabilitation Hospital, Edwin Shawerum or plasma total cholesterol/high density lipoprotein (HDL) cholesterol mass rat Ordered By: Colleen Mg on 70-64-7748Hklrdgczywr.total/Cholesterol in HDL [Mass ratio]4.2 {ratio}[facility] HospitalComment on above:3.3 - 4.4 LOW RISK4.4 - 7.1 AVERAGE RISK7.1 - 11.0 MODERATE RISK>11.0 HIGH RISKChlamydia trachomatis rRNA [Presence] in Cervix by ANDREIA with probe detectionOrdered By: Colleen Mg on 11-18-2024. trachomatis rRNA ANDREIA+probe Ql (Cvx)NegativeNegative [facility] HospitalHuman papilloma virus 16+18+31+33+35+39+45+51+52+56+58+59+66+68 DNA [Presence] in CerOrdered By: Colleen Mg on 26-34-4379GXB 16+18+31+33+35+39+45+51+52+56+58+59+66+68 DNA Probe+sig amp Ql (Cvx)NegativeNegativeMckitrick HospitalComment on above:This nucleic acid amplification test detects fourteen high-risk HPV types (16,18,31,33,35,39,45,51,52,56,58,59,66,68)without differentiation. Neisseria gonorrhoeae rRNA [Presence] in Cervix by ANDREIA with probe detection Ordered By: Colleen Mg on 11-18-2024N. gonorrhoeae rRNA ANDREIA+probe Ql (Cvx) NegativeNegativeMckitrick HospitalNo Panel InformationOrdered By: Colleen Mg on 57-12-5711Ozmm Prep Pap ScreenNote.[facility] HospitalComment on above:TESTS RESULT FLAG UNITS REF RANGE LAB Clinician Provided Cytology Information No. of containers..01 ThinPrep VialDIAGNOSIS: 01 NEGATIVE FORINTRAEPITHELIAL LESION OR MALIGNANCY. CELLULAR CHANGES ASSOCIATED WITH ATROPHY ARE PRESENT. THIS SPECIMEN WAS RESCREENED PART OF OUR MAT MAKING MACHINE TENDER PROGRAM.Specimen adequacy: 01 Satisfactory for evaluation. Endocervical component may not be distinguished in cases of atrophy.Performed by: 01 Kamilla Nelson, Consulting Practice Director ([facility])QC reviewed by: 01 April Myers, Consulting Practice Director ([facility]). 01Note: Note 01 The Pap smear is a screening test designed to aid in the detection of premalignant and malignant conditions of the uterine cervix. It is not a diagnostic procedure and should not be used as the sole means of detecting cervical cancer. Both false-positive and false-negative reports do occur.Test Methodology: Note 01 This liquid based ThinPrep(R) pap test was screened with the use of an image guided system.HPV Genotype Reflex Note 01 Criteria not met, HPV Genotype not performed. FLAG LEGEND: L-Low Normal,H-High Normal,LL-Alert Low,HH-Alert High <-Panic Low,>-Panic High,A-Abnormal,AA-Critical Abnormal Performed at:01 [address] [facility] [address] [address] Deb Smith MD, Lds IG, CNT, HPVrfx 16/18,45on 56-04-8275NDS Chlamydia ANDREIA.NegativeNormalNegativeBaptist Medical Center Beaches Physician GroupComment on above:Performed By: #### PAP [id number] #### [facility] ,PAP Gonococcus.NegativeNormalNegativeBaptist Medical Center Beaches Physician GroupComment on above:Performed By: #### PAP [id number] #### [facility] ,PAP HPV AptimaNegativeNormalNegativeBaptist Medical Center Beaches Physician GroupComment on above:Result Comment: This nucleic acid amplification test detects fourteen high- risk HPV types (16,18,31,33,35,39,45,51,52,56,58,59,66,68) without differentiation.Performed By: #### PAP [id number] #### [facility] ,Pap Image GuidedNoteNormal.The [facility] Physician GroupComment on above:Result Comment: TESTS RESULT FLAG UNITS REF RANGE LAB Clinician Provided Cytology Information No. of containers..01 ThinPrep Vial DIAGNOSIS: 01 NEGATIVE FOR INTRAEPITHELIAL LESION OR MALIGNANCY. CELLULAR CHANGES ASSOCIATED WITH ATROPHY ARE PRESENT. THIS SPECIMEN WAS RESCREENED PART OF OUR MAT MAKING MACHINE TENDER PROGRAM. Specimen adequacy: 01 Satisfactory for evaluation. Endocervical component may not be distinguished in cases of atrophy. Performed by: 01 Kamilla Nelson, Consulting Practice Director ([facility]) QC reviewed by: 01 April Myers, Consulting Practice Director ([facility]) . 01 Note: Note 01 The Pap smear is a screening test designed to aid in the detection of premalignant and malignant conditions of the uterine cervix. It is not a diagnostic procedure and should not be used as the sole means of detecting cervical cancer. Both false-positive and false-negative reports do occur. Test Methodology: Note 01 This liquid based ThinPrep(R) pap test was screened with the use of an image guided system. HPV Genotype Reflex Note 01 Criteria not met, HPV Genotype not performed. FLAG LEGEND: L-Low Normal,H-High Normal,LL-Alert Low,HH-Alert High <-Panic Low,>-Panic High,A-Abnormal,AA-Critical Abnormal Performed at: [address] [address] Deb Smith MD, Reioijgif By: #### PAP [id number] #### [facility] ,PAP Trichomonas VaginalisNegativeNormalNegativeThe [facility] Comment on above:Result Comment: Performed at: [facility] [id number] Automobile Sales Consultant: Deb Smith MD, Phone: [phone] Performed at: =[address] [id number] Automobile Sales Consultant: Deb Smith MD, Phone: [phone] PERFORMED BY: [address] [address] [place] [address] PATHOLOGIST MULTIPLE RESAW OPERATOR TACHO OLIVA M.D.Performed By: #### PAP [id number] #### [facility] ,Trichomonas vaginalis rRNA detection by probe and target amplification method Ordered By: Colleen Mg on 11-18-2024T. vaginalis rRNA ANDREIA+probe Ql (Unsp spec) NegativeNegativeMckitrick HospitalComment on above:Performed at: [address] [id number] Director: Deb Smith MD, Phone: [phone] at: =[address] [id number] Director: Deb Smith MD, Phone: [phone] Foot - right 3 Viewson 92-20-7099nhewmm Result: 3 views foot: AP, MO, and [...] at 1st MTPJ, 2nd and 3rd tarsometatarsal joints.[facility]eeRadiology Study observation (narrative)[facility] 63-98-2467LnknnmofoVtwswirpj From: Yeny Greene LPN To: N - Clinical; Sent: 02/07/2024 13:07:28 EST Show up: 01/06/2034 07:00:00 EST Subject: colonoscopy recall Due Date/Time: 02/05/2034 07:00:00 EST Reminder/Recall Patient due for screening colonoscopy 02/05/2034.[facility] HospitalAmbulatory Visit Summaryon [id number] Visit SummaryAmbulatory Visit Summary ESTHER BOUDREAUX :1960 Visit Date:12/26/2023 [...] you for choosing us for your care. [facility] HospitalMG MAMM SCREEN 3D AMARA CADon 09-38-2797JN MAMM SCREEN 3D AMARA CADPatient: ESTHER BOUDREAUX Exam Date: 03/07/2022 : 1960 Gender:F Ordering : DR COLLEEN MG M.D. Admission #: [id number] Family : Order #: [id number] CLICK HERE TO VIEW EXAM RADIOLOGY REPORT [...] Treatments None Family Cancers None LOCATION: [facility] BREAST COMPOSITION: Scattered areas fibroglandular [...] by: Smitha Stroud MD on 03/08/2022 at 07:09[facility] HospitalXR CHEST 2 Von [id number] CHEST 2 VEXAM: Chest x-ray HISTORY: . Mild intermittent asthma . COMPARISON: None. TECHNIQUE: Frontal and lateral chest FINDINGS: Heart and vascularity are unremarkable. Lungs are expanded and free of focal infiltrates. Early spondylosis of the spine is noted. IMPRESSION: No acute heart or lung disease identified. Electronically authenticated by: SMITHA FOURNIER Date: 2022-03-07 17:04NoAv[facility] AUTO DIFFon [id number] #0.0 103/ulNormal0.0-0.1The [facility] HospitalComment on above:Performed By: #### CBC #### [facility] [address] [address] [address] Nelida NixonBasophils/100 WBC (Bld)0.6 %Normal0.2-2.0[facility] Comment on above:Performed By: #### CBC #### [facility] [address] [address] [address] Nelida Nieves #0.1 103/ulNormal0.0-0.7The [facility] HospitalComment on above: Performed By: #### CBC #### [facility] [address] [address] [address] Nelida Hendricksonosinophils/100 WBC (Bld)1.8 %Normal0.9-7.0[facility] Comment on above:Performed By: #### CBC #### [facility] [address] [address] [address] Nelida Hendricksonrythrocyte distribution width (RBC) [Ratio]13.9 %Jbxnna20.0-15.0 The [facility] HospitalComment on above:Performed By: #### CBC #### [facility] [address] [address] [address] Nelida NixonHematocrit (Bld) [Volume fraction]38.7 %Rhvchw74.0-48.0The [facility] HospitalComment on above:Performed By: #### CBC #### [facility] [address] [address] [address] Nelida NixonHemoglobin (Bld) [Mass/Vol]13.2 g/jLQghtki28.0-16.0Acmc Healthcare SystemComment on above:Performed By: #### CBC #### [facility] [address] [place] [address] Dr. Yilan ChangIG #0.03 10e3/ulNormal0.00-0.03The [facility] HospitalComment on above:Performed By: #### CBC #### [facility] [address] [place] [address] Dr. Nelida Gates %0.4 %Normal0.0-0.5The [facility] HospitalComment on above: Performed By: #### CBC #### [facility] [address] [place] [address] Dr. Nelida Nelson #2.2 103/ulNormal1.2-3.8The [facility] HospitalComment on above:Performed By: #### CBC #### [facility] [address] [place] [address] Dr. Nelida Grahamhocytes/100 WBC (Bld)30.4 %Ywqjki74.5-60.0The [facility] HospitalComment on above:Performed By: #### CBC #### [facility] [address] [place] [address] Dr. Nelida Talavera DIFF REQNONormalThe [facility] HospitalComment on above: Performed By: #### CBC #### [facility] [address] [place] [address] Dr. Nelida Holguin (RBC) [Entitic mass]31.4 ipBmfoxg67.7-34.0The [facility] HospitalComment on above:Performed By: #### CBC #### [facility] [address] [place] [address] Dr. Nelida Peck (RBC) [Mass/Vol]34.1 g/zXWeglsn70.9-35.2The [facility] HospitalComment on above:Performed By: #### CBC #### [facility] [address] [place] [address] Dr. Nelida Vogt (RBC) [Entitic vol]91.9 uGGzmhax09.0-99.0The [facility] HospitalComment on above:Performed By: #### CBC #### [facility] [address] [place] [address] Dr. Yilan ChangMONO #0.6 103/ulNormal0.3-0.8The [facility] HospitalComment on above:Performed By: #### CBC #### [facility] [address] [place] [address] Dr. Nelida Henningocytes/100 WBC (Bld)8.1 %Normal1.7-12.0[facility] Comment on above:Performed By: #### CBC #### [facility] [address] [place] [address] Dr. Nelida VasquezUT #4.2 103/ulNormal1.4-6.5The [facility] HospitalComment on above:Performed By: #### CBC #### [facility] [address] [place] [address] Dr. Nelida Vasquezutrophils/100 WBC (Bld)58.7 %Qxcins17.0-75.0The [facility] HospitalComment on above:Performed By: #### CBC #### [facility] [address] [place] [address] Dr. Nelida Yoolet mean volume (Bld) [Entitic vol]8.8 fLCritically low 9.5-13.5The [facility] HospitalComment on above:Performed By: #### CBC #### [facility] [address] [place] [address] Dr. Nelida NixonPLT199 103/zeNjtpuk997-136Khc [facility] HospitalComment on above: Performed By: #### CBC #### [facility] [address] [place] [address] Dr. Nelida NixonRBC4.21 106/ulNormal4.20-5.40The [facility] HospitalComment on above:Performed By: #### CBC #### [facility] [address] [place] [address] Dr. Nelida NixonWBC7.2 103/ulNormal4.0-11.0The [facility] HospitalComment on above: Performed By: #### CBC #### [facility] [address] [place] [address] Dr. Nelida NixonGLYCOHEMOGLOBIN A1Con 93-89-9294WYY RECOMMENDATIONSEE BELOWColden The [facility] HospitalComformerly [facility] on above:Result Comment: ADA RECOMMENDED LIMIT 4.0 - 6.0 ADA THERAPEUTIC TARGET < 7.0 ACTION SUGGESTED > 7.0Performed By: #### A1C #### [facility] [address] [address] [address] Nelida NixonGlucose [Mass/Vol]117 mg/dLNoOhioHealth Riverside Methodist HospitalComformerly [facility] on above:Performed By: #### A1C #### [facility] [address] [place] [address] Dr. Nelida NixonHbA1c (Bld) [Mass fraction]5.7 %Normal4.5-6.2[facility] on above:Performed By: #### A1C #### [facility] [address] [place] [address] Dr. Nelida DanielsonID PROFILEon 18-69-8807WBNH-HDL RATIO NORMSEE BELOWCleveland Clinic South Pointe HospitalComformerly [facility] on above:Result Comment: 3.3 - 4.4 LOW RISK 4.4 - 7.1 AVERAGE RISK 7.1 - 11.0 MODERATE RISK >11.0 HIGH RISKPerformed By: #### LIPID, TSH, CMP #### [facility] [address] [place] [address] Dr. Nelida Thackeresterol [Mass/Vol]219 mg/dLCritically high<=200The [facility] on above:Performed By: #### LIPID, TSH, CMP #### [facility] [address] [place] [address] Dr. Nelida Thackeresterol in HDL [Mass/Vol]62 mg/dLCritically ndmg07-03Sul [facility] on above:Performed By: #### LIPID, TSH, CMP #### [facility] [address] [place] [address] Dr. Nelida Thackeresterol in LDL [Mass/Vol]118.0 mg/dLMercy Health on above:Performed By: #### LIPID, TSH, CMP #### [facility] [address] [place] [address] Dr. Nelida NixonCholesterol.total/Cholesterol in HDL [Mass ratio]3.5 {ratio} NormalThe [facility] HospitalComment on above:Performed By: #### LIPID, TSH, CMP #### [facility] [address] [place] [address] Dr. Nelida Valencia NORMAL> or = 60 mg/dl - LOW CARDIOVASCULAR RISK <40 mg/dl - HIGH CARDIOVASCULAR RISKCleveland Clinic South Pointe HospitalComment on above:Performed By: #### LIPID, TSH, CMP #### [facility] [address] [place] [address] Dr. Nelida NixonLDL CALC NORMALSEE BELOWCleveland Clinic South Pointe HospitalComment on above:Result Comment: <100 mg/dl OPTIMAL 100 - 129 mg/dl NEAR OR ABOVE OPTIMAL 130 - 159 mg/dl BORDERLINE HIGH 160 - 189 mg/dl HIGH >190 mg/dl VERY HIGH Performed By: #### LIPID, TSH, CMP #### [facility] [address] [place] [address] Dr. Nelida NixonTriglyceride [Mass/Vol]195 mg/dLCritically high<=150The [facility] HospitalComformerly [facility] on above:Performed By: #### LIPID, TSH, CMP #### [facility] [address] [place] [address] Dr. Nelida NixonVLDL CALC39.0 mg/dLNoOhioHealth Riverside Methodist HospitalComformerly [facility] on above: Performed By: #### LIPID, TSH, CMP #### [facility] [address] [place] [address] Dr. Nelida NixonPROF 14(COMP METB)on 84-14-5502Ktwhioy [Mass/Vol]4.2 g/dLNormal 3.4-5.0The [facility] HospitalComment on above:Performed By: #### LIPID, TSH, CMP #### [facility] [address] [place] [address] Dr. Nelida NixonAlbumin/Globulin [Mass ratio]1.2 {ratio}NormalThe [facility] HospitalComment on above:Performed By: #### LIPID, TSH, CMP #### [facility] [address] [address] [address] Nelida DemarcoP [Catalytic activity/Vol]60 U/BSwxhrb18-964Qwh [facility] HospitalComment on above:Performed By: #### LIPID, TSH, CMP #### [facility] [address] [address] [address] Nelida Sanders [Catalytic activity/Vol]78 U/LCritically qavx41-73Zip [facility] HospitalComment on above:Performed By: #### LIPID, TSH, CMP #### [facility] [address] [address] [address] Nelida Baireson gap [Moles/Vol]9.7 mmol/LNormalThe [facility] HospitalComment on above:Performed By: #### LIPID, TSH, CMP #### [facility] [address] [place] [address] Dr. Nelida NixonAST [Catalytic activity/Vol]34 U/AVbizct96-63Rmw [facility] HospitalComment on above:Performed By: #### LIPID, TSH, CMP #### [facility] [address] [place] [address] Dr. Nelida NixonBilirubin [Mass/Vol]0.4 mg/dLNormal0.2-1.0The [facility] Comment on above:Performed By: #### LIPID, TSH, CMP #### [facility] [address] [place] [address] Dr. Nelida NixonCalcium [Mass/Vol]9.6 mg/dLNormal8.5-10.1The [facility] Comment on above:Performed By: #### LIPID, TSH, CMP #### [facility] [address] [place] [address] Dr. Nelida NixonChloride [Moles/Vol]105 mmol/RPkjmeo76-612Ust [facility] Comment on above:Performed By: #### LIPID, TSH, CMP #### [facility] [address] [place] [address] Dr. Nelida NixonCO2 [Moles/Vol]32.2 mmol/LCritically high21.0-32.0The [facility] HospitalComment on above:Performed By: #### LIPID, TSH, CMP #### [facility] [address] [address] [address] Nelida NixonCreatinine [Mass/Vol]0.79 mg/dLNormal0.55-1.02The [facility] on above:Performed By: #### LIPID, TSH, CMP #### [facility] [address] [address] [address] Nelida HendricksonGFR-AF EQUATORIAL GUINEAN>60Normal>=60The [facility] HospitalComment on above:Performed By: #### LIPID, TSH, CMP #### [facility] [address] [address] [address] Nelida HendricksonGFR-NON AF EQUATORIAL GUINEAN>60Normal>=60The [facility] HospitalComment on above:Performed By: #### LIPID, TSH, CMP #### [facility] [address] [address] [address] Nelida NixonGlobulin (S) [Mass/Vol]3.6 g/dLNormalThe [facility] HospitalComment on above:Performed By: #### LIPID, TSH, CMP #### [facility] [address] [address] [address] Nelida NixonGlucose [Mass/Vol]95 mg/nLLhynmr27-925GmgAcmc Healthcare System Comment on above:Performed By: #### LIPID, TSH, CMP #### [facility] [address] [address] [address] Nelida NixonPotassium [Moles/Vol]3.9 mmol/LNormal3.5-5.1The [facility] Comment on above:Performed By: #### LIPID, TSH, CMP #### [facility] [address] [address] [address] Nelida NixonProtein [Mass/Vol]7.8 g/dLNormal6.4-8.2The [facility] Comment on above:Performed By: #### LIPID, TSH, CMP #### [facility] [address] [address] [address] Nelida NixonSodium [Moles/Vol]143 mmol/COeaqsu017-517Sdk [facility] Comment on above:Performed By: #### LIPID, TSH, CMP #### [facility] [address] [place] [address] Dr. Nelida Singh nitrogen [Mass/Vol]16.0 mg/dLNormal7.0-18.0The [facility] HospitalComment on above:Performed By: #### LIPID, TSH, CMP #### [facility] [address] [place] [address] Dr. Nelida Singh nitrogen/Creatinine [Mass ratio]20.3 mg/mgNoOhioHealth Riverside Methodist HospitalComment on above:Performed By: #### LIPID, TSH, CMP #### [facility] [address] [place] [address] Dr. Nelida Drummond 54-83-5152GQQ2.200 uIU/mLNormal0.358-3.740The [facility] HospitalComment on above:Performed By: #### LIPID, TSH, CMP #### [facility] [address] [place] [address] Dr. Nelida Babcock 65-54-2954ZUANZXMDFYJZZMercy Health Allen HospitalComment on above:Result Comment: Negative for Flu B protein antigen. Infection due to Flu B cannot be ruled out. FluB antigen in the sample may be below the detection limit of the test.Performed By: #### INFLUAB #### [facility] [address] [place] [address] Dr. Nelida Olivares AGPositiveAbnormalNEGATIVE SEE COMMENTThe [facility] HospitalComment on above:Performed By: #### INFLUAB #### [facility] [address] [place] [address] Dr. Nelida Brennan AGNegativeNormalNEGATIVE SEE COMMENTThe [facility] HospitalComment on above:Performed By: #### INFLUAB #### [facility] [address] [place] [address] Dr. Nelida Friedman [facility] HospitalComment on above: Result Comment: NOTE: Live attenuated influenzae vaccine viruses can cause a positive result for a rapid influenza diagnostic test if administered up to 7 days prior to rapid testing.Performed By: #### INFLUAB #### [facility] [address] [address] [address] Nelida NixonINTERNAL CONTROLSWithin Normal LimitsNormalWithin Normal Limits The [facility] HospitalComment on above:Performed By: #### INFLUAB #### [facility] [address] [address] [address] Nelida Nixon Vital Signs Date TimeVital SignValuePerforming CqlzwwrujKkzikanx32-26-6201 15:01-0400Body ckgnyi424.5 cmAbi Cervantes MD Work Phone: [phone]-SullivanPgejhcrkhn39-61-8605 15:01-0400Body mass index (BMI) [Ratio]30.73 kg/x5FesugoAbi Cervantes MD Work Phone: [phone]-SullivanIonufzodgy23-33-1353 15:01-0400Body .2 kg Abi Cervantes MD Work Phone: [phone] HospitalMiss[facility]-SullivanRyfdnaqcqc95-44-3996 15:01-0400Diastolic blood gcrlaatw21 mm[Hg]Abi Cervantes MD Work Phone: [phone]-SullivanYgpfkxbkgi17-11-6039 15:01-0400Heart rate83 /min Abi Cervantes MD Work Phone: [facility]-SullivanSvvauzhabq17-61-4628 15:01-0400Systolic blood wpfiyyzq650 mm[Hg]Abi Cervantes MD Work Phone: [phone]-SullivanPjujngcaur39-49-6111 15:27-0400Body ofeojh419.75 cmColleen Mg MD Work Phone: [facility]09-30-2025 15:27-0400 Body mass index (BMI) [Ratio]30.2 kg/b3LobanxColleen Mg MD Work Phone: [facility]09-30-2025 15:27-0400 Body .2 kgColleen Mg MD Work Phone: [phone]09-30-2025 15:27-0400 Diastolic blood oddmprbu42 mm[Hg]Colleen Mg MD Work Phone: [phone] [place], [place] 6344709-30-2025 15:27-0400 Heart rate79 /Opal Mg MD Work Phone: [phone] [place], [place] 6344709-30-2025 15:27-0400 Respiratory rate12 /Opal Mg MD Work Phone: [phone] [place], [place] 6344709-30-2025 15:27-0400 SaO2% (BldA) [Mass fraction]96 %Colleen Mg MD Work Phone: [phone] [place], [place] 6344709-30-2025 15:27-0400 Systolic blood xploursc318 mm[Hg]Colleen Mg MD Work Phone: [phone] [place], [place] 6344707-28-2025 15:30-0400 Body heixef599.75 cmColleen Mg MD Work Phone: [phone] [place], [place] 6344707-28-2025 15:30-0400 Body mass index (BMI) [Ratio]31.3 kg/b0NerfuiColleen Mg MD Work Phone: [phone] [place], [place] 6344707-28-2025 15:30-0400 Body vicwik02.92 kgColleen Mg MD Work Phone: [phone] [place], [place] 6344707-28-2025 15:30-0400 Diastolic blood wbhridcx75 mm[Hg]Colleen Mg MD Work Phone: [phone] [place], [place] 6344707-28-2025 15:30-0400 Heart rate85 /Opal Mg MD Work Phone: [phone] [place], [place] 6344707-28-2025 15:30-0400 Systolic blood csdqzyuc197 mm[Hg]Colleen Mg MD Work Phone: [phone] [place], [place] 6344705-23-2025 11:09-0400 Body gfhexe986.75 cmM[facility]05-23-2025 11:09-0400Body mass index (BMI) [Ratio]31.1 kg/y6NzclfcosbMckitrick Hospital05-23-2025 11:-0400Body .47 kgM[facility]it[facility] Hospital05-23-2025 11:09-0400Diastolic blood dzhfoxjf31 mm[Hg][facility] 07-11-2024 11:090400Heart rate77 /minMckitrick Hospital 07-11-2024 11:09-0400Systolic blood birkqlgr871 mm[Hg][facility]01-14-2025 15:190500Body pbroaa245 cmJuanrajan Chan DPM Work Phone: [facility]-SullivanEllekcfusn15-74-0225 15:19-0500Body mass index (BMI) [Ratio]29.76 kg/y5Mrwwpkj Chan DPM Work Phone: [facility]-SullivanBopbztcepi60-63-1192 15:19-0500Body .2 kg Gerard Chan DPM Work Phone: [facility]-SullivanTlcziztujo56-17-8005 15:22-0500Blood Pressure LocationMichael NILL [phone]-GoyabPromedica Flower Hospital11-06-2024 15:22-0500Diastolic blood mm[Hg]Khalif NILL [phone]-IoahtPromedica Flower Hospital11-06-2024 15:22-0500Heart rate76 /minMichael NILL [phone]-JqxcmPromedica Flower Hospital11-06-2024 15:22-0500Respiratory rate16 /minMichael NILL [phone]-RdipdPromedica Flower Hospital11-06-2024 15:22-0500Systolic blood veapdiqv510 mm[Hg]Khalif NILL [phone]-DwmsrPromedica Flower Hospital2024 15:-0400Body rzidts447.75 cmM[facility]it[facility] Hospital2024 15:28-0400Body mass index (BMI) [Ratio]31.8 kg/x2VgvhlpecmMckitrick Hospital2024 15:28-0400Body eoapfd27.28 kgM[facility]itrick Hospital 12-20-2023 15:28-0400Diastolic blood jwhbcfla08 mm[Hg][facility]2024 15:28-0400Heart rate84 /minMckitrick Hospital 12-20-2023 15:28-5360BaB2% (BldA) [Mass fraction]97 %[facility]2024 15:28-0400Systolic blood khwtfcki049 mm[Hg][facility]10-10-2024 11:35-0400Body wyffxe035.75 [facility]10-10-2024 11:35-0400Body mass index (BMI) [Ratio]31.4 kg/m2 [facility]10-10-2024 11:35-0400Body yoteco22.09 kg [facility]10-10-2024 11:35-0400Diastolic blood nscbuslq22 mm[Hg][facility]10-10-2024 11:35-0400Heart rate86 /min [facility]10-10-2024 11:35-0400Respiratory rate14 /min [facility]10-10-2024 11:35-1944KvX3% (BldA) [Mass fraction]97 %[facility]10-10-2024 11:35-0400Systolic blood kyiudvjk502 mm[Hg][facility]03-25-2024 15:41-0400 Body .75 cmM[facility]itrick Hospital03-25-2024 15:41-0400Body mass index (BMI) [Ratio]32.3 kg/r7GijlvrzmaMckitrick Hospital03-25-2024 15:41-0400Body lrkkadyydcd867.2 [degF][facility] 05-14-2023 15:41-0400Body khbcre36.64 kgM[facility]itrick Hospital 05-14-2023 15:41-0400Diastolic blood pmolyxan56 mm[Hg][facility]03-25-2024 15:41-0400Heart rate94 /minFirAshtabula County Medical Center 05-14-2023 15:41-0400Systolic blood lojgphng417 mm[Hg][facility]11-01-2023 16:00-0400Body ydwbsc918.75 cmJuangurpreet Green Other [employer] Other 11-01-2023 16:00-0400Body mass index (BMI) [Ratio] 31.89 kg/j6Gumthfnbgurpreet Green Other [employer] Other 11-01-2023 16:00-0400Body fiuwuyksgxz44.1 [degF] Jeannine Green Other [employer] Other 11-01-2023 16:00-0400Body .38 kgJeannine Norma Other [employer] Other 11-01-2023 16:00-0400Diastolic blood kkgihzbj60 mm[Hg] Jeannine Green Other [employer] Other 11-01-2023 16:00-9542OoI9% (BldA) [Mass fraction]98 % Jeannine Green Other [employer] Other 11-01-2023 16:00-0400Systolic blood wrcrejjf720 mm[Hg] Jeannine Green Other [employer] Other 07-03-2023 09:00-0400Body .75 cmColleen Mg Other [employer] Other 07-03-2023 09:00-0400Body mass index (BMI) [Ratio] 30.95 kg/u1FmsbzgColleen Mg Other [employer] Other 07-03-2023 09:00-0400Body dvigcv49.02 kgColleen Mg Other [employer] Other 07-03-2023 09:00-0400Diastolic blood rueglvhc31 mm[Hg] Colleen Mg Other [employer] Other 07-03-2023 09:00-0400Systolic blood mutzuwoe627 mm[Hg] Colleen Mg Other [employer] Other 01-05-2023 16:30-0500Body eezevd131.75 cmColleen Mg Other [employer] Other 01-05-2023 16:30-0500Body mass index (BMI) [Ratio] 33.11 kg/h9HrrsmvColleen Mg Other [employer] Other 01-05-2023 16:30-0500Body eeblxh97.46 kgColleen Mg Other [employer] Other 01-05-2023 16:30-0500Diastolic blood uhgqcxdm59 mm[Hg] Colleen Mg Other [employer] Other 01-05-2023 16:30-6708QhW2% (BldA) [Mass fraction]97 % Colleen Mg Other [employer] Other 01-05-2023 16:30-0500Systolic blood mazpgeyx577 mm[Hg] Colleen Mg [facility] [employer] Other Encounters Encounter DateEncounter TypeCare ProviderFacilityStart: 12-15-2024 End: 56-53-7804Jozfqdr encounter procedureColleen Mg MD-[facility] [place] Work Phone: Start: 12-15-2024 End: 91-96-2186xhkherdijtWlzkrk E Braun MD Work Phone: -[facility] Main CampusStart: 12-02-2024 End: 30-71-7382jjghjnlrflMCFBLU H TIMMISNot AvailableStart: 12-02-2024 End: 59-70-6189Koesht outpatient new 45 minutesAbi Cervantes MD Work Phone: noms Dani OtolaryngologyComment on above:LAD (lymphadenopathy) of left cervical region (Primary Dx); Meningioma (HCC)Start: 12-02-2024 End: 91-57-4185Meogqc flowsheetAbi Cervantes MD Work Phone: [facility] OtolaryngologyStart: 12-02-2024 End: 33-33-2020Kbrppnmehdi Cervantes MD Work Phone: [facility] OtolaryngologyStart: 18-25-6177Vbc-patient / Non-visitColleen Mg MD-[facility] [employer] Work Phone: Start: 11-18-2024 End: 27-68-8202Zyawabg encounter statusColleen Mg MDUC Healthtart: 11-18-2024 End: 58-15-0134kwvmpxptujQovoow E Braun MD Work Phone: [facility] Work Phone: Start: 11-18-2024 End: 54-29-1895Qnhaieic ReferredColleen Mg MD-[facility] [place] Work Phone: Start: 11-18-2024 End: 22-55-7945Cjgfkin encounter procedureColleen Mg MD-[facility] Work Phone: Start: 14-53-7776uqqrzuwdjqGvugre E Braun MD Work Phone: [facility] Work Phone: Start: 60-43-3953Brf-patient / Non-visitColleen Mg MD-[facility] Work Phone: Start: 10-16-2024 End: 20-48-4212hnjefyeobvMcwpvm E Braun MD Work Phone: [facility] Work Phone: Start: 10-16-2024 End: 51-30-3481Jyzvubu encounter procedureBrad Soriano [facility] [place] Work Phone: Start: 09-15-2024 End: 16-19-0667dspdtbhvomNhatlp E Braun MD Work Phone: [facility] Work Phone: Start: 09-15-2024 End: 58-87-8251Yactwdh encounter procedureColleen Mg MD-[facility] Work Phone: Start: 07-11-2024 End: 94-48-7127kgfqnajkwrAttwainykUniversity Hospitals Par[facility] Medical Center Work Phone: Start: 07-11-2024 End: 79-21-8372Myeqqwy encounter procedureAtrium Health Mountain Islandliban [facility] Work Phone: Start: 03-04-2024 End: 83-83-6514Wwmxfz outpatient new 45 minutesGerard Seals DPLizbeth Work Phone: NOUB PODIATRYComment on above:Metatarsus adductus of right foot (Primary Dx); Hallux valgus with bunions of right foot; Primary osteoarthritis of right foot; Capsulitis of foot, right; Neuritis of right foot; Right foot painStart: 03-04-2024 End: 20-35-3802mswrgvaykoMTIOYVCTacos Holt AvailableStart: 03-04-2024 End: 86-46-6593Tbffan Gen Seals DPM Work Phone: NOHK PODIATRYStart: 03-04-2024 End: 56-39-9068Prblgi Gen Seals DPM Work Phone: NOMS PODIATRYStart: 02-06-2024 End: 66-41-8403rqcgatmdlnDoinjzy R NILLFacility::[id number]: 12-26-2023 End: 65-92-3210keaqafwlfdYysxfly R NILLFacility: BryanueStart: 12-26-2023 End: 09-07-2412Gptxdns encounter procedureMichael R NILL [phone]-Nfyre [facility] [place] Start: 12-20-2023 End: 61-51-7377cpsvurlvzmPzlpggtziUniversity Hospitals Parma Medical Center Work Phone: Start: 12-20-2023 End: 94-73-1392Yemolhw encounter procedureFirelands Physician Group-[facility] Work Phone: Start: 01-60-7381Eyy-patient / Non-visitFireast wiltons [facility] Work Phone: Start: 42-18-7254drvhubwagiUgvqbuq NILLFacility: BryanueStart: 11-29-2023 End: 77-67-0373vtditnzgqvYmwvzhsnn [facility] Work Phone: Start: 11-29-2023 End: 29-94-9315Vqwvsqw encounter procedureFirelands Physician Group-[facility] Work Phone: Start: 05-14-2023 End: 07-38-9986aimujcwbcaWqcwcaecfUniversity Hospitals Parma Medical Center Work Phone: Start: 05-14-2023 End: 67-61-5737Syfptkg encounter procedureFirelands Physician Group-[facility] Work Phone: Start: 12-20-2022 End: 14-93-2173zekdfdxnooShprrjmb Rohrbacher Other noPlayerT[employer] Other Start: 02-79-6202Iwfwyf outpatient visit 15 minutes Jeannine KarolineCleveland Clinic Marymount Hospitaltart: 12-18-2022 End: 23-18-1897yzgncqxzdpYloyoq Mg Other [employer] Other Start: 78-81-5921Iejwwttip encounterMarcia St. [facility] Specialty Hospitaltart: 10-24-2022(Televisit) TelevisitMarcia St. [facility] Specialty Hospitaltart: 10-24-2022 End: 40-10-7968bnhzfgdcocDnfchn Mg Other [employer] Other Start: 08-21-2022 End: 53-96-9059zwbgypriohJzeyyz Mg Other [employer] Other Start: 40-53-0612Ooyrur outpatient visit 15 minutes Colleen SauravUpper Valley Medical Centertart: 08-07-2022 End: 47-99-7289ucjwlhojxpRqjjng Mg Other [employer] Other Start: 07-08-2273Tcrreziuv encounterMarcia St[facility] Special[facility] Hospitaltart: 05-08-2022 End: 12-50-3447zlwtfmltmgCtvfxg Mg Other [employer] Other Start: 99-35-7879Pvrozxuur encounterMarcia St. [facility] Specialty Hospitaltart: 04-20-2022 End: 98-44-1054vhulswuoomQewlex Mg Other [employer] Other Start: 33-71-5212Swvqdtwoo encounterMarcia SauravYUMA REGIONAL MEDICAL [facility]ENTER [facility] ClinicStart: 03-10-2022 End: 99-77-2109xdgepevphlProozx Mg Other [employer] Other Start: 61-85-3006Kgyojrizo encounterMarcia SauravMemorial Hospital ClinicStart: 03-08-2022 End: 81-59-2247geoikaqvdcQvkcqt Mg Other [employer] Other Start: 20-73-0777Tbjqvdxoz encounterMarcia SauravMemorial Hospital ClinicStart: 03-07-2022 End: 93-38-1446yozotmvblhCJ COLLEEN MGFacility:G4Sgknd: 03-04-2022 End: 55-13-5872fxkzalzwmsXR COLLEENRAMONE MGFacility:T2Czuuy: 02-28-2022 End: 21-61-0035wgblbefievFyxwgh Mg Other [employer] Other Start: 41-07-9229Iayclaipn encounterMarcia SauravYUMA REGIONAL MEDICAL CENTER [facility] ClinicStart: 02-23-2022 End: 48-07-2484rkfoaaalvmUiihlp Mg Other [employer] Other Start: 72-87-9105Ktprekfqg for general adult medical examination without abnormal findingsMarcia [facility] ClinicStart: 92-80-8837Azgunzmy preventive med est patient 40-64yrsMarcia [facility] ClinicStart: 01-24-2022 End: 39-85-5837jxjtlyphplJN COLLEEN MGFacility:T3Tgwmg: 73-68-0840Jsfky health examinationMarcia Mg Other [employer] Other Start: 08-04-2021 End: 30-77-9695cicqkuusugJA COLLEEN MGFacility:H1 Procedures DateProcedureProcedure DetailPerforming ClinicianStart: 69-34-6599FTZ of head Colleen Mg MD Work Phone: Start: 46-78-3351Bphkq foot complete minimum 3 views Gerard Seals DPM Work Phone: Start: 72-16-0084Goxyqvttm mammographyMarcia Mg Other Start: 34-31-5116Fxrzpwics for malignant neoplasm of colonMarcia Saurav Other Start: 24-39-2968Osmcj screeningMarcia Saurav Other Start: 95-54-2858LdsflswqpaoVrjxhvx Clarke DPM Work Phone: ColonoscopyMichael NILL LaparoscopyMichael NILL Lysis of adhesionsMichael NILL Screening for malignant neoplasm of breastMarcia Saurav Other TympanostomyMichael NILL Plan of Treatment DateCare ActivityDetailAuthorStart: 84-37-3611Gaoyibcgk for malignant neoplasm of colonNOMS HealthcareStart: 91-52-3506DqzfufkcvUC Healthtart: 83-03-2097Yodwbra referralAkron [facility] Work Phone: Start: 89-86-3813Owfpqpk referralGuernsey Memorial Hospital Work Phone: Start: 28-70-8248Qxvurtwgd vaccinationInfluenza Vaccine (#1)[facility] HealthcareStart: 20-50-1851Obdfzev referralGuernsey Memorial Hospital Work Phone: Start: 04-01-2024 End: 53-41-4673Qsbbyvi encounter xoacujpep25/11/2025 4:15 PM EST Office Visit [facility] [address] [place] [phone] Gerard Seals, DPM [address] [place], [place] [phone] [facility] PODIATRYStart: 03-04-2024 End: 52-84-4658Cfgebpa encounter nzttwlcyn93/14/2025 3:30 PM EST Office Visit [facility] [address] [place] [phone] Gerard Seals, DPM [address] [place], [place] [phone] ArrivedSWEDISH MEDICAL CENTER FIRST HILL PODIATRYComment on above:ArrivedStart: 80-46-9058Psvxdjb referralGuernsey Memorial Hospital Work Phone: Start: 52-66-6147Gfdyhpqmd vaccinationInfluenza Vaccine (#1)[facility] HealthcareStart: 83-25-4375Wshwqkaxy for malignant neoplasm of breastMammogramNOMS HealthcareStart: 57-88-9252Xxodhzkzg for malignant neoplasm of breastMammogramNOMS HealthcareStart: 13-87-3382Cizyvmfat for malignant neoplasm of cervixNOMS HealthcareStart: 84-92-0179Imrtbbyiw for malignant neoplasm of cervixPap SmearNOMS HealthcareStart: 61-87-5268Emgnwmzwp for malignant neoplasm of colonNOMS HealthcareChlamydia trachomatis rRNA [Presence] in Cervix by ANDREIA with probe detectionMckitrick Hospital Comprehensive metabolic 2000 panel - Serum or PlasmaMckitrick HospitalDXA Skeletal system.axial Views for bone densityMckitrick HospitalHuman papilloma virus 16+18+31+33+35+39+45+51+52+56+58+59+66+68 DNA [Presence] in Cervix by Probe with signal amplificationMckitrick HospitalMG Breast - bilateral ScreeningMckitrick HospitalMG Breast - bilateral ScreeningMckitrick HospitalNeisseria gonorrhoeae rRNA [Presence] in Cervix by ANDREIA with probe detectionMckitrick HospitalPatient referralGuernsey Memorial Hospital Work Phone: Trichomonas vaginalis rRNA [Presence] in Unspecified specimen by ANDREIA with probe detectionMckitrick HospitalUS Chest [facility] HospitalUS Thyroid glandMckitrick HospitalUS Thyroid glandMckitrick HospitalXR Shoulder - bilateral ViewsMckitrick HospitalXR Shoulder - left [facility] Immunizations Immunization DateImmunizationNotesCare TiwwnkgpHapltwyw19-64-4020HUEX-XkC-2 (COVID-19) Ad26 vaccine, recombinantMichael NILL [phone]-Pqppj General Surgery BellevueComment on above: Result Comment: 2023-12-11: --SELECT TARGET POPULATION/OCCUPATION--02-17-2019 zoster vaccine Tanja Cervantes MD Work Phone: [facility]-SullivanKmjwzhbbdm81-05-8017cmryux vaccine, liveMarcia Mg Other [facility]07-27-2019zoster vaccine Tanja Cervantes MD Work Phone: [facility]-SullivanQolmjptckw46-71-8306brvakk vaccine, liveMarcia Mg Other [facility]06-23-2018tetanus toxoid, reduced diphtheria toxoid, and acellular pertussis vaccine, adsorbed Colleen Mg Other [place] [employer] Other [id number] and diphtheria toxoids, adsorbed, preservative free, for adult use (5 Lf of tetanus toxoid and 2 Lf of diphtheria toxoid)[facility] Payers DatePayer CategoryPayerPolicy [id number] Health InsuranceHEALTHSCOPE [id number] [id number] 2.16.840.1.674152.3.57[id number] 2.16.840.1.164933.3.57[id number] 2.16.840.1.558834.3.57[id number] 2.16.840.1.106734.3.57[id number] 2.16.840.1.709302.3.57[id number] 2.16.840.1.278860.3.57[id number] 2.16.840.1.068686.3.57[id number] 2.16.840.1.569580.3.57[id number] 2.16.840.1.609494.3.579.2.074185-07-2649Cnsfror0693148609-11-2584Vbcnsks [id number] Social History DateTypeDetailFacilityUnknown if ever smokedNort [employer] Other Start: 03-04-2024 End: 53-46-5295Lgf [facility]igned [facility] Hospitaltart: 05-14-2023 End: 55-51-9088Obormzv smoking status NHISNever smoked tobacco (finding) [facility]: 08-18-3122Rws Assigned At BirthFemale [facility] He[facility]htart: 28-93-8111Tygsrrp smoking statusNever [facility] HospitalTobacco smoking status NHISTobacco smoking consumption unknownNOMS HealthcareStart: 05-96-5838Qedrhd identityIdentifies as female gender (finding)[facility] HealthcareStart: 66-34-0008Mvycsl orientation Heterosexual (finding)[facility] HealthcareStart: 34-59-8479Bwnltyr use and exposure Smokeless tobacco non-userNOMS HealthcareStart: 03-04-2024 End: 82-39-0365Rcnawtsml beverage intakeEx-drinker (finding)[facility] Start: 03-04-2024 End: 29-24-5463Lwdzbqwzi beverage intakeNOMS HealthcareStart: 40-43-6517Ywm Female (finding)[facility] Functional Status DfmoNfbsrirjbnXqpifqTtfobobm01-57-9022Axgjhligrv StatusN/AFRiverview [facility] Institute Clinical Notes 08-05-2021 to 12-02-2024 Note Date & NftiKjieLnvoelpf54-51-1430 History of Present illness Narrative* Abi Cervantes MD - 12/02/2024 3:00 PM EDT Subjective Patient ID: Esther Boudreaux is a 64 y.o. female who presents for Adenopathy (Enlarged lymph nodes, lump/mass in neck CT Neck [facility] 11/21/24 ) Pt reports in August she was checking herself for ticks when she noted a left cervical LN. Tx with abx in August, and no change noted. CT obtained that shows normal amara cervical LAD. The LN in the area of concern is 7mm. 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 Review of Systems All other systems reviewed and are negative. Family History[1] Active Ambulatory Problems Diagnosis Date Noted Asthma (HCC) Acute maxillary sinusitis 12/01/2024 Allergic rhinitis 12/20/2015 Bicipital tendinitis, right shoulder 12/01/2024 Bilateral shoulder pain 12/01/2024 BMI 31.0-31.9,adult 12/01/2024 Bronchitis 12/01/2024 Chronic tympanitis 12/01/2024 Endometriosis 03/01/2024 Lymphadenopathy of head and neck 12/01/2024 Mass in neck 12/01/2024 Mass of subcutaneous tissue of back 12/01/2024 Migraine aura occurring with and without headache 03/01/2024 Mild intermittent asthma (HCC) 12/01/2024 Non-suppurative otitis media 12/01/2024 Obesity due to excess calories 12/01/2024 Osteoporosis 03/01/2024 Primary osteoarthritis of shoulders, bilateral 12/01/2024 Rotator cuff syndrome of right shoulder 12/01/2024 Screening for colon cancer 12/01/2024 Sensorineural hearing loss, bilateral 12/01/2024 Resolved Ambulatory Problems Diagnosis Date Noted No Resolved Ambulatory Problems Past Medical History: Diagnosis Date 1980 H/O myringotomy Lymph nodes enlarged Migraines Surgical History[2] Allergies[3] Medications Ordered Prior to Encounter[4] Objective Last Recorded Vitals Vitals: 12/02/24 1501 BP: 132/79 Pulse: 83 ENT Physical Exam Constitutional Appearance: patient appears well-developed, well-nourished and well-groomed, Head and Face Appearance: head appears normal and face appears atraumatic; Ear Ear Canals: right ear canal normal; left ear canal normal; Tympanic Membranes: right tympanic membrane normal; left tympanic membrane normal; Nose External Nose: nares patent bilaterally; external nose normal; Internal Nose: septum normal; Oral Cavity/Oropharynx Tongue: normal; Oral mucosa: normal; Hard palate: normal; Soft palate: normal; Tonsils: normal; Neck Neck: neck normal; neck palpation normal; Thyroid: thyroid normal; Neck comments: LT ant cervical LN c/w CT. Firm. Mobile Respiratory Inspection: breathing unlabored; normal breathing rate; Auscultation: breath sounds are clear; Cardiovascular Inspection: extremities are warm and well perfused; no peripheral edema present; Auscultation: regular rate and rhythm; Assessment/Plan Diagnoses and all orders for this visit: LAD (lymphadenopathy) of left cervical region Left ant cervical LAD that is by size and morphology criteria normal. It is a bit firm, however. Aspt has an US almost 3 mo ago I will repeat an US. If sig growth noted I will get an FNA Pt's incidental finding d/w her. She has an upcoming appt with Dr Evin Mg who will manage [1] Family History Problem Relation Name Age of Onset COPD Mother Alicia Diabetes Mother Alicia Heart disease Father Matt [2] Past Surgical History: Procedure Laterality Date MYRINGOTOMY W/ TUBES OTHER SURGICAL HISTORY endometrial surgery 1991 [3] Allergies Allergen Reactions Penicillins Other Reaction(s): Hives, Unknown Acetaminophen Hives and Unknown Other Other Reaction(s): Unknown Propoxyphene Other Reaction(s): Unknown Sulfa Antibiotics Other Reaction(s): Hives [4] Current Outpatient Medications on File Prior to Visit Medication Sig Dispense Refill albuterol HFA 90 mcg/act inhaler 2 puffs every 4 (four) hours if needed alendronate (Fosamax) 70 MG tablet Take 70 mg by mouth kviavqf-xcruucuxswirp-opxrllfq (Excedrin Migraine) 250-250-65 MG tablet Take 1 tablet by mouth every 6 (six) hours if needed for headaches fluticasone (Flovent) 110 MCG/ACT inhaler Inhale 2 puffs in the morning and 2 puffs before bedtime. montelukast (Singulair) 10 MG tablet Take 10 mg by mouth Daily SUMAtriptan (Imitrex) 25 MG tablet Take 25 mg by mouth meloxicam (Mobic) 15 MG tablet Take 15 mg by mouth Daily (Patient not taking: Reported on 12/02/2024) No current facility-administered medications on file prior to visit. documented in this encounterMissouri [facility] Hospital-[id number] Hospital Discharge instructionsAmbulatory Orders* Referral to Podiatry Time Frame: 11/18/24, Location: None [facility] Work Phone: 1(861) 112-162208-28-2025 Evaluation note* Diagnosis Onset Date Resolution Status Admit Date Bicipital tendinitis, right shoulder acuteAugust 2024 10:43amPrimary osteoarthritis of shoulders, bilateral acuteAugust 2024 10:43amRotator cuff syndrome of right shoulderacuteAugust 2024 10:43amRight foot painacuteSeptember 2024 3:22pmScreening mammogram for breast canceracuteNovember 18, 2024 3[facility] acutept2024 3:22pm [facility] Work Phone: 1(694) 164-667907-28-2025 Evaluation note* Diagnosis Onset Date Resolution Status Admit Date Left shoulder pain acuteJuly 2024 3:17pmMass in neckacuteJuly 2024 3:17pmMass of subcutaneous tissue of backacuteJuly 2024 3:17pmBicipital tendinitis, right shoulderacuteAugust 2024 10:43amPrimary osteoarthritis of shoulders, bilateralacuteAugust 2024 10:43amRotator cuff syndrome of right shoulder acuteAugust 2024 10:43am [facility] Work Phone: 1(610) 880-387907-28-2025 Evaluation note* Diagnosis Onset Date Resolution Status Admit Date Left shoulder pain acuteJuly 2024 3:17pmMass in neckacuteJuly 2024 3:17pmMass of subcutaneous tissue of backacuteJuly 2024 3:17pmBicipital tendinitis, right shoulderacuteAugust 2024 10:43amPrimary osteoarthritis of shoulders, bilateralacuteAugust 2024 10:43amRotator cuff syndrome of right shoulder acuteAugust 2024 10:43amScreening mammogram for breast canceracute November 18, 2024 3:[facility]pm[facility] examinationacuteSept2024 3:22pm [facility] Work Phone: 1([phone]) 973-439707-28-2025 Evaluation note* Diagnosis Onset Date Resolution Status Admit Date Left shoulder pain acuteJuly 2024 3:17pmMass in neckacuteJuly 2024 3:17pmMass of subcutaneous tissue of backacuteJuly 2024 3:17pmBicipital tendinitis, right shoulderacuteAugust 2024 10:43amPrimary osteoarthritis of shoulders, bilateralacuteAugust 28th, 2025 10:43amRotator cuff syndrome of right shoulder acuteAugust 2024 10:43amRight foot painacuteSeptember 2024 3:22pm Screening mammogram for breast canceracuteSept2024 3:22pmWellness examinationacuteSept2024 3:22pm [facility] Work Phone: 1(456) 550-989505-23-2025 Evaluation note* Diagnosis Onset Date Resolution Status Admit Date Left shoulder pain acuteMay 2024 11:01amMass in neckacuteJuly 2024 3:17pmMass of subcutaneous tissue of backacuteJuly 2024 3:17pm [facility] Work Phone: 1(162) 499-821501-14-2025 History of Present illness Narrative* Gerard Seals, [...] Gerard Seals DPM documented in this encounterMissouri Baptist Hospital-[id number] NoteGeneral Surgery Office/Clinic Note Chief Complaint consultation [...] Ad26 vaccine 07/14/2020 Recorded 2023-12-11: --[employer] POPULATION[facility]OCC[facility]:Result Comment: Electronically Signed By: JESSIE NAYLOR, Khalif Aguilar\Date and Time Signed: 12/26/23 15:42 [id number] Hospital Discharge instructionsAmbulatory Orders* Referral to General Surgery Time Frame: 11/29/23, Location: None Selected [facility] Work Phone: 1([phone]) 657-364911-01-2023 Evaluation note* Encounter Date Diagnosis Assessment Notes Treatment Notes Treatment Clinical Notes Dec, Dysfunction of left eustachian t ube (ICD-10 - H69.92) Informed pt that there [...] should follow up with PCP. Patient should follo w up with PCP sooner if symptoms worsen. Patient verbalizes understanding and agreement with treatment plan. Dec,Viral upper respiratory illness (ICD-10 - J06.9)Discussed that symptoms that she was having appeared [...] verbalizes understanding and agreement with treatment plan. [employer] Other 09-05-2023 Evaluation note* Encounter Date Diagnosis Assessment Notes Treatment Notes Treatment Clinical Notes Oct, Acute non-recurrent maxillary si nusitis (ICD-10 - J01.00) Sinus infections can be triggered by a secondary infection from a viral URI or even seasonal allergies. Take medications as directed. Use saline nasal spray prior to presciption nasal spray. Take medications as directed, and complete all doses of medication even if you start to feel better. Patientadvised to follow up with PCP if symptoms persist or worsen. Patient verbalized understanding and agreement with treatment plan. Also discussed adequate hydration and rest. [employer] Other 07-03-2023 Evaluation note* Encounter Date Diagnosis Assessment Notes Treatment Notes Treatment Clinical Notes Aug, Trochanteric bursitis, left hip (ICD-10 - M70.62) Offered PT. Short course of steroids prescribed. Copied and gave Esther home exercises. Aug,Migraine with aura and without status migrainosus, not intractable (ICD-10 - G43.109)Chronic problem. Will watch for FMLA Forms. [employer] Other 06-19-2023 Evaluation note* Encounter Date Diagnosis Assessment Notes Treatment Notes Treatment Clinical Notes Jul, Mild intermittent asthma without complication (ICD-10 - J45.20) [employer] Other 03-20-2023 Evaluation note* Encounter Date Diagnosis Assessment Notes Treatment Notes Treatment Clinical Notes Apr, Mild intermittent asthma without complication (ICD-10 - J45.20) [employer] Other 01-10-2023 Evaluation note* Encounter Date Diagnosis Assessment Notes Treatment Notes Treatment Clinical Notes Feb, Mild intermittent asthma without complication (ICD-10 - J45.20) [employer] Other 01-05-2023 Evaluation note* Encounter Date Diagnosis Assessment Notes Treatment Notes Treatment Clinical Notes Feb, Wellness examination (ICD-10 - Z 00.00) Today during your appointment we discussed your health history and family history of chronic healthproblems. We also discussed screenings that should be done to rule out chronic health problems. These screenings can help prevent many health problems from becoming major as early intervention is thebest treatment for all conditions. We will be checking your cholesterol, kidney function, blood sugar as well as special tests to rule out breast cancer and colon cancer. Based on the findings, we will come up with a plan together of when the best time for your next screening should be. Feb, reast cancer screening by mammogram (ICD-10 - Z12.31) Feb,olon cancer screening (ICD-10 - Z12.11) Feb,Mild intermittent asthma without complication (ICD-10 - J45.20) [employer] Other 06-17-2022 NotePROCEDURE: XR HIP LT 2 3V W PELVIS HISTORY: Pain of left hip joint , chronic COMPARISON: None. FINDINGS: BONES:No fracture, acute abnormality, or significant arthropathy. SOFT TISSUES:No visible soft tissue swelling. EFFUSION:None visible. OTHER: Negative. IMPRESSION: 1. Normal appearance of the hip joints. Electronically authenticated by: DODIE TENA Date: 2021-08-05 08:33[facility] [place] [facility] No data available for this section [facility] [place] Evaluation noteNo InformationNortBucktail Medical Center [employer] Other Evaluation noteNo assessment information available [facility] Work Phone: Evaluation note* Diagnosis Onset Date Resolution Status Osteoporosis acuteScreening for colon canceracuteScreening mammogram for breast canceracute [facility] Work Phone: Evaluation note* Diagnosis Onset Date Resolution Status Migraines acuteOsteoporosisacuteScreening for colon canceracuteScreening mammogram for breast canceracute [facility] Work Phone: Evaluation note* Diagnosis Metatarsus adductus of right foot- Primary Hallux valgus with bunions of right foot Primary osteoarthritis of right foot Capsulitis of foot, right Neuritis of right foot Right foot pain Pain in soft tissues of limb documented [facility] this encounter [facility]* Diagnosis Onset Date Resolution Status Admit Date Left shoulder pain acuteMay 2024 11:01am [facility] Work Phone: Evaluation note* Diagnosis LAD (lymphadenopathy) of left cervical region- Primary Meningioma (HCC) Benign neoplasm of cerebral meninges documented in this encounter [facility] HealthcareHistory general Narrative - Reported* Type Description Date Medical History Osteoporosis Medical HistorymigrainesMedical HistoryasthmaMedical Historymammogram - 2019 Medical Historycolonoscopy - 2018Medical Historypostmenopausal osteoporosis Surgical HistoryendometriosisSurgical HistoryCV diagnosticsSurgical HistoryPE tubes [employer] Other History general Narrative - Reported* Type Description Date Medical History Osteoporosis Medical HistorymigrainesMedical HistoryasthmaMedical Historymammogram - 2019 Medical Historycolonoscopy - 2018Medical Historypostmenopausal osteoporosis Surgical HistoryendometriosisSurgical HistoryCV diagnosticsSurgical HistoryPE tubesHospitalization Historysee surigcal [employer] Other Hospital Discharge instructions No data available for this section [facility] Hospital Discharge instructionsAmbulatory Orders* Referral to ENT Location: None Selected [facility] Work Phone: Progress note No data available for this section [facility] Reason for referral (narrative)No reason for referral information availableGuernsey [facility] Hospital Work Phone: Summary Purpose Family History No Family History Records Found Relationship Condition Age at Onset Recorded Date/T kana father Unknown Family history of other conditionUnknownNot SpecifiedDiabetes mellitusUnknown Heart diseaseUnknownDeceasedUnknown Relationship Condition Age at Onset Recorded Date/T kana father Unknown Family history of other conditionUnknownmotherDiabetes mellitusUnknownHeart diseaseUnknownDeceasedUnknown Advance Directives No Advanced Directives Records Found Advance Directive Response Recorded Date/ Time Advance Directives No May 13 9:35am Chief Complaint and Reason for Visit Chief Complaint Ear Infection Chief Complaint Wellness/FMLA Paperw ork Reason for Visit Osteoporosis Screening for colon cancer Screening mammogram for breast cancer Chief Complaint Wellness/FMLA Paperw ork CC Adult Risk Stratification Check UpReason for VisitMigraines Osteoporosis Screening for colon cancer Screening mammogram [...] on neck September 15, 2024 3:[address] [facility] [address] COLLEEN MG AMARA SHOULDER PAIN WX October 16, 2024 10:43am Referral Order November 14, 2024 9:32am Chief Complaint Admit Date Lump on neck September 15, 2024 3:[address] [facility] [address] COLLEEN MG AMARA SHOULDER PAIN WX October 16, 2024 10:43am Referral Order November 14, 2024 9:32am Wellness/PAP November 18, 2024 3:22pm Reason for Visit Admit Date Left shoulder pain September 15, 2024 3:17 pm Mass in neck September 15, 2024 3:17 pm Mass of subcutaneous tissue of back September 15, 2024 3:17pm Bicipital tendinitis, right shoulder Aug ust 2024 10:43am Primary osteoarthritis of shoulders, amara ateral October 16, 2024 10:43am Rotator cuff syndrome of right shoulder October 16, 2024 10:43am Screening mammogram for breast cancer Se ptember 2024 3:22pm Wellness examination November 18 3:22pm Reason for Visit Admit Date Left shoulder pain September 15, 2024 3:17 pm Mass in neck September 15, 2024 3:17 pm Mass of subcutaneous tissue of back September 15, 2024 3:17pm Bicipital tendinitis, right shoulder Aug ust 2024 10:43am Primary osteoarthritis of shoulders, amara ateral October 16, 2024 10:43am Rotator cuff syndrome of right shoulder October 16, 2024 10:43am Right foot pain November 18, 2024 3:22pm Screening mammogram for breast cancer Se ptember 2024 3:22pm Wellness examination November 18 3:22pm Chief Complaint Admit Date [facility] CON[facility]ULT DR COLLEEN MG AMARA SHOULDER PAIN WX October 16, 2024 10:43am Referral Order November 14, 2024 9:32am Z12.4 November 18, 2024 3:11pm Wellness/PAP November 18, 2024 3:22pm D32.9 R93.89 December 15, 2024 5 :32pm Reason for Visit Admit Date Bicipital tendinitis, right shoulder Aug ust 2024 10:43am Primary osteoarthritis of shoulders, amara ateral October 16, 2024 10:43am Rotator cuff syndrome of right shoulder October 16, 2024 10:43am Right foot pain November 18, 2024 3:22pm Screening mammogram for breast cancer Se ptember 2024 3:22pm Wellness examination November 18 3:22pm Additional Source Comments INFORMATION SOURCE (unrecogn ized section and content) DATE CREATED AUTHOR 03/08/2022 [facility] DATE CREATED AUTHOR AUTHOR'S ORGANIZ ATION 02/13/2024 [facility] DATE CREATED AUTHOR AUTHOR'S ORGANIZ ATION 12/04/2024 [facility] DATE CREATED AUTHOR AUTHOR'S ORGANIZ ATION 12/17/2024 [facility] REASON FOR VISIT (unrecogniz ed section and content) ReasonCommentsFoot PainDenise Boudreaux 63yo New Patient presents with Right foot pain since 12/2023, NKI, pain is intermittent and level 10 at times. Patient also relates Bunion pain on the right foot at times. Patient typically wears a steel toed work boot. SS [id number]Enlarged lymph nodes, lump/mass in neck CT Neck TB 11/21/24 Care Teams (unrecognized sec tion and content) [...] Start: July 11, 2024 End: July 11, 2024Rudy Lamb ProviderActiveStart: July 11, 2024 End: July 11, 2024 Team Status: Inactive Member Role Status Dates Colleen Mg MD Primary Care Provider Active Start: September 15, 2024 End: September 15, 2024Rudy Lamb ProviderActiveStart: September 15, 2024 End: September 15, 2024 Team Status: Inactive Member Role Status Dates Colleen Mg MD Primary Care Provider Active Start: October 16, 2024 End: October 16, 2024Chayito Dumont ProviderActiveStart: October 16, 2024 End: October 16, 2024 Team Status: Active Member Role Status Dates Colleen Mg MD Primary Care Provider Active Start: November 14, 2024 Rudy Lamb ProviderActiveStart: November 14, 2024 Team Status: Inactive Member Role Status Dates Colleen Mg MD Primary Care Provider Active Start: November 18, 2024 End: November 18, 2024Rudy Lamb ProviderActiveStart: November 18, 2024 End: November 18, 2024 Team Status: Inactive Member Role Status Dates Colleen Mg MD Attending Provider Active St art: November 18, 2024 End: November 18, 2024Team MemberRelationshipSpecialtyStart DateEnd Date Colleen Mg MD [address] [place] [address] PCP - [facility] Imtvhexd41/14/25Team MemberRelationshipSpecialtyStart Date End Date Colleen Mg MD [address] [place] [id number] PCP - [facility] Nabidmwx95/14/25 Team Status: Active Member Role/Relationship Status Dates Colleen Mg MD Primary Care Provider Active Team Status: Inactive Member Role/Relationship Status Dates Colleen Mg MD Primary Care Provider Active Start: October 16, 2024 End: October 16, 2024Chayito Dumont ProviderActiveStart: October 16, 2024 End: October 16, 2024 Team Status: Active Member Role/Relationship Status Dates Colleen Mg MD Primary Care Provider Active Start: November 14, 2024 Rudy Lamb ProviderActiveStart: November 14, 2024 Team Status: Inactive Member Role/Relationship Status Dates Colleen Mg MD Attending Provider Active art: November 18, 2024 End: November 18, 2024 Team Status: Inactive Member Role/Relationship Status Dates Colleen Mg MD Primary Care Provider Active Start: November 18, 2024 End: November 18, 2024Rudy Lamb ProviderActiveStart: November 18, 2024 End: November 18, 2024 Team Status: Active Member Role/Relationship Status Dates Colleen Mg MD Attending Provider Active St art: November 21, 2024 Team Status: Inactive Member Role/Relationship Status Bro Mg MD Primary Care Provider Active Start: December 15, 2024 End: December 15, 2024Rudy Lamb ProviderActiveStart: December 15, 2024 End: December 15, 2024 Goals (unrecognized section and content) [...] BE BASED ON THE PRIMARY CLINICAL RECORDS. [facility] [employer] provides no warranty or guarantee of the accuracy or completeness of information in this document.
== END 2024-12-22 15:43 | disposition home or self-care (01) ==
LOC: US 15:43
PROVIDERS: PCP Family Medicine; Visit Provider Otolaryngology
DX: R59.0 Localized enlarged lymph nodes (principal); D32.9 Benign neoplasm of meninges, unspecified
CPT/HCPCS: 76536